=== PATIENT | female | born 1940 | race Caucasian/White ===

== ENCOUNTER → 2016-09-22 | Outpatient (CLI) | payer MEDICARE ==
--- NOTE | 2016-09-22 13:05 | MR ---
EXAMINATION TYPE: MR lumbar spine wo con DATE OF EXAM: 09/22/2016 10:05 AM COMPARISON: NONE HISTORY: Low back pain CONTRAST: 0 mL intravenous MultiHance. TECHNIQUE: Multiplanar, multisequence images of the lumbar spine were acquired. FINDINGS: L5-S1: There is narrowing of the disc height through this level. Facet hypertrophy is present. Some l igamentum flavum laxity is present. No spinal canal stenosis is present. Severe right and moderate le ft foraminal stenosis is present. L4-L5: There is loss of disc height is level. There is anterior listhesis of L4 anterior to L5. This appears to be a grade 1. Disc uncovering is anterior thecal sac flattening. Facet hypertrophy is post erior lateral thecal sac compression. Some spinal canal narrowing through this level is present. Ther e is moderate right and mild left foraminal narrowing. L3-L4: Facet hypertrophy is posterior lateral thecal sac compression. There is disc space narrowing. Mild residual disc bulging is anterior thecal sac contact. No stenosis is present. Neural foramen are patent. L2-L3: There is loss of disc height is level. Left paracentral left lateral disc bulge is present. Th ere is moderate left foraminal stenosis. No spinal canal stenosis is present. L1-L2: Broad-based disc bulge is present. Some central disc extension is present. This has mild anter ior thecal sac compression. No spinal canal stenosis or neural foraminal stenosis. T12-L1: Mild residual disc bulging is anterior thecal sac contact. No cord contact is evident. Facet hypertrophy is posterior lateral thecal sac compression is present. Disc space narrowing is present. IMPRESSION: 1. Grade 1 spondylolisthesis of L4 anterior and L5. Disc uncovering is anterior thecal sac flattening at this level. 2. Multilevel loss of disc height. 3. Disc bulges with mild anterior thecal sac compression and facet hypertrophy at multiple levels is present discussed above. 4. Severe right foraminal stenosis is present L5-S1 due to facet hypertrophy and disc bulge. There is moderate left foraminal stenosis L2-3 due to disc bulge.
== END | disposition home or self-care (01) ==
LOC: RADMRIMAIN 09:20
PROVIDERS: ATTEND Physical Medicine & Rehabilitation
DX: M43.16 Spondylolisthesis, lumbar region (principal); M51.27 Other intervertebral disc displacement, lumbosacral region; M48.06 Spinal stenosis, lumbar region; M51.26 Other intervertebral disc displacement, lumbar region; M41.9 Scoliosis, unspecified; Z79.02 Long term (current) use of antithrombotics/antiplatelets
CPT/HCPCS: 72148

== ENCOUNTER → 2016-09-29 | Outpatient (CLI) | payer MEDICARE ==
[2016-09-29 11:13] LABS: Basophils % (A) 1 %; CH 31.6; CHCM 31.7; Eosinophils # (A) 0.1 k/uL (0-0.7); Eosinophils % (A) 2 %; HCT 48.5 % (34.0-46.0); HDW 2.53; HGB 15.4 gm/dL (11.4-16.0); Luc # (Auto) 0.29; Luc % (Auto) 4; Lymphocytes # (A) 0.8 k/uL (1.0-4.8); Lymphocytes % (A) 11 %; MCH 31.9 pg (25.0-35.0); MCHC 31.8 g/dL (31.0-37.0); MCV 100.3 fL (80.0-100.0); Macrocytosis Slight; Mean Platelet Volume 7.6; Monocytes # (A) 0.4 k/uL (0-1.0); Monocytes % (A) 6 %; Neutrophils % (A) 78 %; RBC 4.83 m/uL (3.80-5.40); RDW 14.6 % (11.5-15.5); WBC 7.8 k/uL (3.8-10.6)
== END | disposition home or self-care (01) ==
LOC: LABWHC1 10:42
PROVIDERS: ATTEND Physical Medicine & Rehabilitation
DX: M70.62 Trochanteric bursitis, left hip (principal); M70.61 Trochanteric bursitis, right hip; M51.17 Intervertebral disc disorders with radiculopathy, lumbosacral region; M43.16 Spondylolisthesis, lumbar region; M47.817 Spondylosis without myelopathy or radiculopathy, lumbosacral region; M41.26 Other idiopathic scoliosis, lumbar region
CPT/HCPCS: 36415; 84165; 85025

== ENCOUNTER 2016-10-28 17:02 | Observation (INO) | payer MEDICARE ==
[2016-10-28] MEDS ORDERED: SODIUM CHLORIDE 0.9% 1,000 ML IV STA (19:48)
[2016-10-28] MEDS ORDERED: KETOROLAC 30 MG/ML 1 ML VIAL IVP STA (19:48)
[2016-10-28] MEDS ORDERED: ONDANSETRON 4 MG/2 ML VIAL IVP STA (19:48)
[2016-10-28] MEDS ORDERED: MORPHINE SULFATE 4 MG/ML SYRINGE IV STA (19:48)
--- NOTE | 2016-10-28 19:54 | ED ---
General Adult HPI - General Chief complaint: Weakness Stated complaint: pain all over Time Seen by Provider: 10/28/16 19:24 Source: patient, RN notes reviewed, old records reviewed Mode of arrival: wheelchair Limitations: no limitations - History of Present Illness Initial comments: This is a 76-year-old female to the ER for evaluation. The patient presents here today for evaluation of weakness not feeling well decreased activity level decrease walking and back pain. Patient history of heart disease, states short of breath and chest pain is not impact her activity level, she states is mainly impacted by her uncontrolled back pain which she is not a surgical candidate for and not an injection candidate for secondary to her heart surgery being on Plavix. Patient states she is becoming increasingly depressed and has been depressed for some quite some time, she does not feel suicidal but is loss her day-to-day goals, she has nothing to look for to, nothing that excites her, she says most her time in bed sleeping. Patient does not cook for herself and her activities of daily living a very minimal she is brought in today by family, her daughter who is concerned for her overall well-being - Related Data Home Medications Medication Instructions Recorded Confirmed Omeprazole [PriLOSEC] 20 mg PO DAILY 02/05/15 10/28/16 Venlafaxine HCl ER [Effexor XR] 150 mg PO DAILY 02/05/15 10/28/16 Carvedilol [Coreg] 3.125 mg PO BID 10/28/16 10/28/16 Gabapentin [Neurontin] 300 - 600 mg PO Q8H 10/28/16 10/28/16 Lisinopril [Zestril] 1.25 mg PO DAILY 10/28/16 10/28/16 diphenhydrAMINE [Benadryl] 25 mg PO HS PRN 10/28/16 10/28/16 Previous Rx's Medication Instructions Recorded Aspirin 325 mg PO DAILY #30 tab 02/08/15 Atorvastatin [Lipitor] 80 mg PO DAILY #30 tab 02/08/15 Clopidogrel [Plavix] 75 mg PO DAILY #30 tab 02/08/15 Nitroglycerin Sl Tabs [Nitrostat] 0.4 mg SUBLINGUAL Q5M PRN #50 tab 02/08/15 Allergies Allergy/AdvReac Type Severity Reaction Status Date / Time No Known Allergies Allergy Verified 10/28/16 19:57 Review of Systems ROS Statement: Those systems with pertinent positive or pertinent negative responses have been documented in the HPI. ROS Other: All systems not noted in ROS Statement are negative. Past Medical History Past Medical History: Coronary Artery Disease (CAD), CVA/TIA, GERD/Reflux, Hyperlipidemia, Hypertension, Myocardial Infarction (AR), Rheumatoid Arthritis ( RA) Additional Past Medical History / Comment(s): CVA 1972 History of Any Multi-Drug Resistant Organisms: None Reported Past Surgical History: Heart Catheterization With Stent, Tubal Ligation Past Anesthesia/Blood Transfusion Reactions: No Reported Reaction Past Psychological History: Depression Smoking Status: Never smoker Past Alcohol Use History: None Reported Past Drug Use History: None Reported - Past Family History Father Family Medical History: Myocardial Infarction (AR) Additional Family Medical History / Comment(s): passed at 60 years old. Mother Family Medical History: Congestive Heart Failure (CHF) Additional Family Medical History / Comment(s): at 99 years old. Brother(s) Family Medical History: Hyperlipidemia, Hypertension, Myocardial Infarction (AR) Additional Family Medical History / Comment(s): still living. General Exam Limitations: no limitations General appearance: alert, in no apparent distress Head exam: Present: atraumatic, normocephalic, normal inspection Eye exam: Present: normal appearance, PERRL, EOMI. Absent: scleral icterus, conjunctival injection, periorbital swelling ENT exam: Present: normal exam, mucous membranes moist Neck exam: Present: normal inspection. Absent: tenderness, meningismus, lymphadenopathy Respiratory exam: Present: normal lung sounds bilaterally. Absent: respiratory distress, wheezes, rales, rhonchi, stridor Cardiovascular Exam: Present: regular rate, normal rhythm, normal heart sounds. Absent: systolic murmur, diastolic murmur, rubs, gallop, clicks GI/Abdominal exam: Present: soft, normal bowel sounds. Absent: distended, tenderness, guarding, rebound, rigid Extremities exam: Present: normal inspection, full ROM, normal capillary refill. Absent: tenderness, pedal edema, joint swelling, calf tenderness Back exam: Present: normal inspection Neurological exam: Present: alert, oriented X3, CN II-XII intact Psychiatric exam: Present: normal affect, normal mood Skin exam: Present: warm, dry, intact, normal color. Absent: rash Course Vital Signs 10/28/16 10/28/16 17:04 19:44 Temperature 98.7 F 97.2 F L Pulse Rate 73 77 Respiratory 18 16 Rate Blood Pressure 147/63 137/66 O2 Sat by Pulse 97 98 Oximetry - Reevaluation(s) Reevaluation #1: 10/28/16 19:54 In speaking with patient in private, she denies suicide but admits to depression , she states that she is would not be in the hospital at this time was of her daughter bring her in but she is not her daughter understands her daughter's concern for will be Medical Decision Making - Medical Decision Making 36 female ER for evaluation of back pain chest pain weakness debility dysuria, positive urinary tract infection with decreased activity level, patient for IV hydration and IV antibiotics evaluation by orthopedics for back and pain control , PTOT and psychiatric evaluation regarding depression - Lab Data Result diagrams: 10/28/16 20:00 10/28/16 20:00 Lab Results 10/28/16 10/28/16 10/28/16 Range/Units 20:00 20:00 20:00 WBC 5.5 (3.8-10.6) k/uL RBC 4.52 (3.80-5.40) m/uL Hgb 14.2 (11.4-16.0) gm/dL Hct 45.2 (34.0-46.0) % MCV 100.0 (80.0-100.0) fL MCH 31.3 (25.0-35.0) pg MCHC 31.3 (31.0-37.0) g/dL RDW 14.3 (11.5-15.5) % Plt Count 209 (150-450) k/uL Neutrophils % 67 % Lymphocytes % 19 % Monocytes % 6 % Eosinophils % 3 % Basophils % 2 % Neutrophils # 3.7 (1.3-7.7) k/uL Lymphocytes # 1.0 (1.0-4.8) k/uL Monocytes # 0.3 (0-1.0) k/uL Eosinophils # 0.2 (0-0.7) k/uL Basophils # 0.1 (0-0.2) k/uL Macrocytosis Slight PT (9.0-12.0) sec INR (<1.1) APTT (22.0-30.0) sec Sodium 141 (137-145) mmol/L Potassium 4.0 (3.5-5.1) mmol/L Chloride 104 (98-107) mmol/L Carbon Dioxide 29 (22-30) mmol/L Anion Gap 8 mmol/L BUN 18 H (7-17) mg/dL Creatinine 0.67 (0.52-1.04) mg/dL Est GFR (MDRD) Af Amer >60 (>60 ml/min/1.73 sqM) Est GFR (MDRD) Non-Af >60 (>60 ml/min/1.73 sqM) Glucose 155 H (74-99) mg/dL Calcium 9.2 (8.4-10.2) mg/dL Phosphorus 3.3 (2.5-4.5) mg/dL Magnesium 2.1 (1.6-2.3) mg/dL Total Bilirubin 0.5 (0.2-1.3) mg/dL AST 29 (14-36) U/L ALT 33 (9-52) U/L Alkaline Phosphatase 87 (38-126) U/L Total Creatine Kinase 81 (30-135) U/L CK-MB (CK-2) 1.2 (0.0-2.4) ng/mL CK-MB (CK-2) Rel Index 1.5 Troponin I <0.012 (0.000-0.034) ng/mL Total Protein 7.0 (6.3-8.2) g/dL Albumin 3.8 (3.5-5.0) g/dL TSH 1.190 (0.465-4.680) mIU/L Urine Color Urine Appearance (Clear) Urine pH (5.0-8.0) Ur Specific [place] (1.001-1.035) Urine Protein (Negative) Urine Glucose (UA) (Negative) Urine Ketones (Negative) Urine Blood (Negative) Urine Nitrite (Negative) Urine Bilirubin (Negative) Urine Urobilinogen (<2.0) mg/dL Ur Leukocyte Esterase (Negative) Urine RBC (0-5) /hpf Urine WBC (0-5) /hpf Ur Squamous Epith Cells (0-4) /hpf Urine Bacteria (None) /hpf Urine Mucus (None) /hpf 10/28/16 10/28/16 Range/Units 20:00 20:00 WBC (3.8-10.6) k/uL RBC (3.80-5.40) m/uL Hgb (11.4-16.0) gm/dL Hct (34.0-46.0) % MCV (80.0-100.0) fL MCH (25.0-35.0) pg MCHC (31.0-37.0) g/dL RDW (11.5-15.5) % Plt Count (150-450) k/uL Neutrophils % % Lymphocytes % % Monocytes % % Eosinophils % % Basophils % % Neutrophils # (1.3-7.7) k/uL Lymphocytes # (1.0-4.8) k/uL Monocytes # (0-1.0) k/uL Eosinophils # (0-0.7) k/uL Basophils # (0-0.2) k/uL Macrocytosis PT 10.9 (9.0-12.0) sec INR 1.1 (<1.1) APTT 21.9 L (22.0-30.0) sec Sodium (137-145) mmol/L Potassium (3.5-5.1) mmol/L Chloride (98-107) mmol/L Carbon Dioxide (22-30) mmol/L Anion Gap mmol/L BUN (7-17) mg/dL Creatinine (0.52-1.04) mg/dL Est GFR (MDRD) Af Amer (>60 ml/min/1.73 sqM) Est GFR (MDRD) Non-Af (>60 ml/min/1.73 sqM) Glucose (74-99) mg/dL Calcium (8.4-10.2) mg/dL Phosphorus (2.5-4.5) mg/dL Magnesium (1.6-2.3) mg/dL Total Bilirubin (0.2-1.3) mg/dL AST (14-36) U/L ALT (9-52) U/L Alkaline Phosphatase (38-126) U/L Total Creatine Kinase (30-135) U/L CK-MB (CK-2) (0.0-2.4) ng/mL CK-MB (CK-2) Rel Index Troponin I (0.000-0.034) ng/mL Total Protein (6.3-8.2) g/dL Albumin (3.5-5.0) g/dL TSH (0.465-4.680) mIU/L Urine Color Yellow Urine Appearance Clear (Clear) Urine pH 6.0 (5.0-8.0) Ur Specific [place] 1.011 (1.001-1.035) Urine Protein Negative (Negative) Urine Glucose (UA) Negative (Negative) Urine Ketones Negative (Negative) Urine Blood Trace H (Negative) Urine Nitrite Negative (Negative) Urine Bilirubin Negative (Negative) Urine Urobilinogen <2.0 (<2.0) mg/dL Ur Leukocyte Esterase Moderate H (Negative) Urine RBC 6 H (0-5) /hpf Urine WBC 12 H (0-5) /hpf Ur Squamous Epith Cells 3 (0-4) /hpf Urine Bacteria Occasional H (None) /hpf Urine Mucus Rare H (None) /hpf - Radiology Data Radiology results: report reviewed, image reviewed Disposition Clinical Impression: UTI (urinary tract infection), Weakness, Dehydration, Debility, Back pain, Depression Disposition: ADMITTED IP TO THIS [facility] Condition: Fair Referrals: Indira Rodriguez MD [Primary Care Provider] - 1-2 days
[2016-10-28 20:21] LABS: Basophils # (A) 0.1 k/uL (0-0.2); Basophils % (A) 2 %; CH 31.3; CHCM 31.5; Eosinophils # (A) 0.2 k/uL (0-0.7); Eosinophils % (A) 3 %; HCT 45.2 % (34.0-46.0); HDW 2.47; HGB 14.2 gm/dL (11.4-16.0); Luc # (Auto) 0.14; Luc % (Auto) 3; Lymphocytes % (A) 19 %; MCH 31.3 pg (25.0-35.0); MCHC 31.3 g/dL (31.0-37.0); Macrocytosis Slight; Mean Platelet Volume 6.8; Monocytes # (A) 0.3 k/uL (0-1.0); Monocytes % (A) 6 %; Neutrophils # (A) 3.7 k/uL (1.3-7.7); Neutrophils % (A) 67 %; RBC 4.52 m/uL (3.80-5.40); RDW 14.3 % (11.5-15.5); WBC 5.5 k/uL (3.8-10.6); WBC (Perox) 5.26
[2016-10-28 20:30] LABS: ALT 33 U/L (9-52); AST 29 U/L (14-36); Alkaline Phosphatase 87 U/L (38-126); Anion Gap 8 mmol/L; Blood Urea Nitrogen 18 mg/dL (7-17); Calcium 9.2 mg/dL (8.4-10.2); Carbon Dioxide 29 mmol/L (22-30); Chloride 104 mmol/L (98-107); Glucose 155 mg/dL (74-99); Magnesium 2.1 mg/dL (1.6-2.3); Non-African American GFR(MDRD) >60 (>60 ml/min/1.73 sqM); Phosphorous 3.3 mg/dL (2.5-4.5); Sodium 141 mmol/L (137-145); Total Bilirubin 0.5 mg/dL (0.2-1.3)
[2016-10-28 20:38] LABS: Appearance,Urine Clear (Clear); Bacteria,Urine Occasional /hpf; Bilirubin,Urine Negative (Negative); Glucose,Urine (UA) Negative (Negative); Ketones,Urine Negative (Negative); Leukocyte Esterase,Urine Moderate (Negative); Mucus,Urine Rare /hpf; Nitrite,Urine Negative (Negative); Particle Count 1521; Protein,Urine Negative (Negative); RBC,Urine 6 /hpf (0-5); Specific Gravity,Urine 1.011 (1.001-1.035); Squamous Epithelial Cell,Urine 3 /hpf (0-4); UA Billing (MACRO vs. MICRO) MICRO; Urobilinogen,Urine <2.0 mg/dL (<2.0); WBC,Urine 12 /hpf (0-5)
[2016-10-28 20:50] LABS: Creatine Kinase 81 U/L (30-135)
--- NOTE | 2016-10-28 20:52 | XR ---
EXAMINATION TYPE: XR chest 2V DATE OF EXAM: 10/28/2016 8:38 PM COMPARISON: 02/05/2015 HISTORY: Weakness TECHNIQUE: Frontal and lateral views of the chest are obtained. FINDINGS: There is no heart failure nor confluent pneumonic infiltrate. Heart size is normal. There no hilar masses. There are chest leads. IMPRESSION: Normal chest. No change.
[2016-10-28 20:53] LABS: INR 1.1 (<1.1); Prothrombin Time 10.9 sec (9.0-12.0)
[2016-10-28 21:03] LABS: Creatine Kinase MB 1.2 ng/mL (0.0-2.4); Troponin I <0.012 ng/mL (0.000-0.034)
[2016-10-28 21:07] LABS: Partial Thromboplastin Time 21.9 sec (22.0-30.0)
[2016-10-28] MEDS ORDERED: ACETAMINOPHEN TAB 325 MG TAB PO STA (21:59)
[2016-10-28] MEDS ORDERED: IBUPROFEN 800 MG TAB PO PRN (21:59)
[2016-10-28] MEDS ORDERED: ACETAMINOPHEN TAB 325 MG TAB PO PRN (21:59)
[2016-10-28 23:27] VITALS: BMI 37.8
[2016-10-29] MEDS: MORPHINE SULFATE 4 MG/ML SYRINGE IVP PRN ×2 (05:27→22:20)
[2016-10-29] MEDS: ENOXAPARIN 40 MG/0.4 ML SYRINGE SQ SCH (08:22)
[2016-10-29] MEDS ORDERED: NITROGLYCERIN SL TABS 0.4 MG TAB SUBLINGUAL PRN (10:35)
[2016-10-29] MEDS ORDERED: ALPRAZolam 0.25 MG TAB PO PRN (10:36)
[2016-10-29] MEDS: ASPIRIN 325 MG TAB PO SCH (11:42)
[2016-10-29] MEDS: ATORVASTATIN 80 MG TAB PO SCH (11:42)
[2016-10-29] MEDS: CLOPIDOGREL 75 MG TAB PO SCH (11:43)
[2016-10-29] MEDS: CARVEDILOL 3.125 MG TAB PO SCH ×2 (11:43→17:37)
[2016-10-29] MEDS: GABAPENTIN 300 MG CAP PO SCH ×3 (11:43→23:40)
[2016-10-29] MEDS: VENLAFAXINE HCL ER 150 MG CAP PO SCH (11:44)
[2016-10-29] MEDS: LISINOPRIL 2.5 MG TAB PO SCH (11:44)
--- NOTE | 2016-10-29 12:05 | P.CNOR ---
History of Present Illness - [facility] Consult date: 10/29/16 Consult reason: low back pain History of present illness: This is a 76-year-old female who is a known patient of Dr. Díaz for her low back pain. She is admitted with recent urinary tract infection. She states that her back pain has become significantly worse over the past several days. She is also having pain radiating down both legs. She denies numbness or tingling. Other than the urinary tract infection symptoms she has no other bowel or bladder difficulties. She has been attending physical therapy for her back. The patient is able to ambulate short distances. Past Medical History Past Medical History: Coronary Artery Disease (CAD), CVA/TIA, GERD/Reflux, Hyperlipidemia, Hypertension, Myocardial Infarction (ND), Rheumatoid Arthritis ( RA) Additional Past Medical History / Comment(s): CVA 2011 Last Myocardial Infarction Date:: 01/2015 History of Any Multi-Drug Resistant Organisms: None Reported Past Surgical History: Heart Catheterization With Stent, Tubal Ligation Past Anesthesia/Blood Transfusion Reactions: No Reported Reaction Date of Last Stent Placement:: 01/2015 Past Psychological History: Depression Smoking Status: Never smoker Past Alcohol Use History: None Reported Past Drug Use History: None Reported - Past Family History Father Family Medical History: Myocardial Infarction (ND) Additional Family Medical History / Comment(s): passed at 60 years old. Mother Family Medical History: Congestive Heart Failure (CHF) Additional Family Medical History / Comment(s): at 99 years old. Brother(s) Family Medical History: Hyperlipidemia, Hypertension, Myocardial Infarction (ND) Additional Family Medical History / Comment(s): still living. Medications and Allergies Home Medications Medication Instructions Recorded Confirmed Type Omeprazole [PriLOSEC] 20 mg PO DAILY 02/05/15 10/28/16 History Venlafaxine HCl ER [Effexor XR] 150 mg PO DAILY 02/05/15 10/28/16 History Carvedilol [Coreg] 3.125 mg PO BID 10/28/16 10/28/16 History Gabapentin [Neurontin] 300 - 600 mg PO Q8H 10/28/16 10/28/16 History Lisinopril [Zestril] 1.25 mg PO DAILY 10/28/16 10/28/16 History diphenhydrAMINE [Benadryl] 25 mg PO HS PRN 10/28/16 10/28/16 History Allergies Allergy/AdvReac Type Severity Reaction Status Date / Time No Known Allergies Allergy Verified 10/28/16 19:57 Physical Examination This is a pleasant 76-year-old female in no acute distress. She is alert and oriented 3. Exam of the low back reveals mild, nonspecific tenderness about the lower lumbar region. There is no hip pain with logroll. Patient can raise each leg off the bed independently without difficulty. She does have some weakness to the left lower extremity with sustained leg raise. She has full foot and ankle motion bilaterally. Neurovascular status to the lower extremities is intact. Results - Labs Result Diagrams: 10/28/16 20:00 10/28/16 20:00 Assessment and Plan (1) Lumbar radiculopathy Status: Acute (2) Back pain Status: Acute (3) UTI (urinary tract infection) Status: Acute Plan: The clinical findings are discussed the patient. She has not yet tried steroids for her low back symptoms. I will give her 3 doses of site Medrol then prescribe a tapered dosing for home. She is to follow-up with Dr. Díaz in 2 weeks for reevaluation. She may continue her physical therapy as previously directed.
[2016-10-29] MEDS: methylPREDNISolone SOD SUCCI 125 MG/2 ML VIAL IV SCH ×3 (13:03→23:40)
--- NOTE | 2016-10-29 20:15 | HP ---
DATE OF ADMISSION: 10/28/2016 CHIEF COMPLAINT: Weakness and pain all over and vomiting. HISTORY OF PRESENT ILLNESS: This 76 -year-old woman with past medical history of multiple medical problems including coronary artery disease, CVA, TIA, history of GERD, history of hypertension, myocardial infarction, being followed by Dr. Indira Rodriguez in the outpatient setting, was complaining of vomiting and abdominal discomfort, diffuse aches and pains. The patient also had an episode of vomiting. The patient that the patient had PR in 2014 after an episode of vomiting and the daughter took the patient to [facility] and the patient was admitted to the hospital for further evaluation and treatment. The patient also had significant back pain. The patient not a surgical candidate. There is no history of any fever, rigors or chills. No history of headache, loss of consciousness or seizures. The patient was found to have evidence of UTI . PAST MEDICAL HISTORY: History of coronary artery disease, stents, history of GERD, hypertension, hyperlipidemia, history of myocardial infarction, cerebrovascular accident. Medications prior to admission include: 2. Effexor-XR 150 mg p.o. daily. 3. Prilosec 20 mg daily. 4. Nitrostat 0.5 sublingual p.r.n. 5. Zestril 1.25 mg p.o. daily. 6. Neurontin 300 to 600 mg p.o. q.h.s. 7. Plavix 75 mg daily. 8. Coreg 3.125 mg p.o. b.i.d. 9. Lipitor 80 mg p.o. daily. 10. Aspirin 325 mg daily. ALLERGIES: None. FAMILY HISTORY: History of myocardial infarction in the family. SOCIAL HISTORY: No smoking. Occasional alcohol intake. REVIEW OF SYSTEMS: ENT: Diminishing hearing, diminished vision. CARDIOVASCULAR: As mentioned earlier. RESPIRATORY: As mentioned earlier. GI: As mentioned earlier. : No dysuria. No retention. Nervous system: No numbness. Generalized weakness. ALLERGY/IMMUNOLOGY: No asthma or hayfever. MUSCULOSKELETAL: As mentioned earlier. HEMATOLOGY/ONCOLOGY: No history of anemia. ENDOCRINE: No history of diabetes mellitus or hypothyroidism. CONSTITUTIONAL: As mentioned earlier. DERMATOLOGY: Negative. RHEUMATOLOGY: Negative. PSYCHIATRY: As mentioned earlier. PHYSICAL EXAMINATION: The patient is alert and oriented times three. Pulse 77, blood pressure 137/40, respirations 18, and temperature 97.9, pulse ox 98% on room air. HEENT: Conjunctivae normal. Oral mucosa moist. NECK: No jugular venous distention. No carotid bruit. No lymph node enlargement. CARDIOVASCULAR: S1, S2 muffled. No S3, no S4. RESPIRATORY: Breath sounds diminished at the bases. A few scattered rhonchi, no crackles. ABDOMEN: Soft, nontender. No mass palpable. Legs: No edema, no swelling. Nervous system: Higher functions as mentioned earlier. Moves all 4 limbs. Mild diffuse weakness. No focal deficits. LYMPHATICS: No lymph nodes palpable in the neck, axillae or groin. SKIN: No ulcer, rash or bleeding. LABS: CBC within normal limits and APTT 21.9 and glucose is 155. UA noted. ASSESSMENT: 1. Vomiting and weakness for evaluation, possibly acute gastritis. 2. Urinary tract infection. 3. Increased random blood sugar. 4. History of coronary artery disease. 5. History of cerebrovascular accident, transient ischemic attack. 6. Gastroesophageal reflux disease. 7. Hypertension. 8. Hyperlipidemia. 9. Myocardial infarction. 10. History of rheumatoid arthritis. 11. History of coronary artery disease, stent. 12. History of depression, not otherwise specified. 13. Obesity with body mass index of 37.9. 14. Back pain and lumbar radiculopathy, degenerative joint disease 15. FULL CODE. RECOMMENDATIONS AND DISCUSSION: In this 77-year-old woman who presented with multiple complex medical issues, we will monitor the patient closely. Continue the current medications, continue symptomatic treatment. Otherwise, at this time, I would recommend empiric antibiotics. The patient started on Rocephin. Obtain cultures. Increase ambulation. Otherwise, continue to monitor. Psych consult has been requested. Orthopedics also seen the patient for follow-up of the back pain. Otherwise, continue to monitor. Guarded prognosis. MTDD
[2016-10-29] MEDS ORDERED: diphenhydrAMINE 25 MG CAP PO PRN (21:00)
[2016-10-30] MEDS ORDERED: PANTOPRAZOLE 40 MG TABLET PO SCH (07:30)
[2016-10-30] MEDS: ASPIRIN 325 MG TAB PO SCH (07:52)
[2016-10-30] MEDS: ATORVASTATIN 80 MG TAB PO SCH (07:52)
[2016-10-30] MEDS: CARVEDILOL 3.125 MG TAB PO SCH (07:52)
[2016-10-30] MEDS: GABAPENTIN 300 MG CAP PO SCH (07:52)
[2016-10-30] MEDS: LISINOPRIL 2.5 MG TAB PO SCH (07:52)
[2016-10-30] MEDS: CLOPIDOGREL 75 MG TAB PO SCH (07:52)
[2016-10-30] MEDS: ENOXAPARIN 40 MG/0.4 ML SYRINGE SQ SCH (07:52)
[2016-10-30] MEDS: VENLAFAXINE HCL ER 150 MG CAP PO SCH (07:53)
[2016-10-30 07:59] VITALS: BP 161/80; PULSE 83; RESP 18; TEMP 97.9
[2016-10-30 08:07] LABS: Anion Gap 8 mmol/L; Blood Urea Nitrogen 19 mg/dL (7-17); Calcium 9.9 mg/dL (8.4-10.2); Carbon Dioxide 27 mmol/L (22-30); Chloride 107 mmol/L (98-107); Glucose 124 mg/dL (74-99); Non-African American GFR(MDRD) >60 (>60 ml/min/1.73 sqM); Potassium 4.6 mmol/L (3.5-5.1); Sodium 142 mmol/L (137-145)
[2016-10-30 08:15] LABS: Basophils % (A) 0 %; CH 31.7; CHCM 32.5; Eosinophils % (A) 0 %; HCT 43.8 % (34.0-46.0); HDW 2.48; Luc # (Auto) 0.11; Luc % (Auto) 1; Lymphocytes # (A) 0.6 k/uL (1.0-4.8); Lymphocytes % (A) 7 %; MCH 31.4 pg (25.0-35.0); MCV 98.2 fL (80.0-100.0); Mean Platelet Volume 7.2; Monocytes # (A) 0.6 k/uL (0-1.0); Monocytes % (A) 6 %; Neutrophils # (A) 8.3 k/uL (1.3-7.7); Neutrophils % (A) 86 %; RBC 4.46 m/uL (3.80-5.40); RDW 13.8 % (11.5-15.5); WBC 9.7 k/uL (3.8-10.6); WBC (Perox) 9.99
[2016-10-30] MEDS ORDERED: NON-FORMULARY DRUG (Omeprazole [Prilosec] 20 MG) PO SCH (09:00)
--- NOTE | 2016-10-30 10:43 | P.PN ---
Subjective Principal diagnosis: UTI Lumbar radiculopathy This is a 76-year-old female who we are following regarding her acute on chronic low back pain. She states that her pain is improved today. She is hoping for discharge to home today. Objective - Vital Signs Vital signs: Vital Signs Temp 97.9 F 10/30/16 07:00 Pulse 83 10/30/16 07:00 Resp 18 10/30/16 07:00 BP 161/80 10/30/16 07:00 Pulse Ox 96 10/30/16 07:00 Intake & Output 10/29/16 10/30/16 10/30/16 18:59 06:59 18:59 Intake Total 300 1830 Balance 300 1830 Intake: Oral 300 1830 Other: Voiding Method Toilet Toilet Toilet # Voids 2 2 - Exam This is a pleasant 76-year-old female in no acute distress. She is alert and oriented 3. Exam of the low back reveals no obvious deformity. There is no pain palpation about the lumbar region. She has full motion to bilateral lower extremities. She has 5/5 strength to the lower extremities. Neurovascular status to the lower extremities is intact. - Labs CBC & Chem 7: 10/30/16 07:06 10/30/16 07:06 Labs: Abnormal Lab Results - Last 24 Hours (Table) 10/30/16 10/30/16 Range/Units 07:06 07:06 Neutrophils # 8.3 H (1.3-7.7) k/uL Lymphocytes # 0.6 L (1.0-4.8) k/uL BUN 19 H (7-17) mg/dL Glucose 124 H (74-99) mg/dL Assessment and Plan (1) Lumbar radiculopathy Status: Acute (2) Back pain Status: Acute (3) UTI (urinary tract infection) Status: Acute Plan: The clinical findings are discussed the patient. She may be discharged to home from an orthopedic standpoint. She is followed Dr. Díaz in [address] her on prednisone taper dose seen for home. She is to continue her Prilosec.
--- NOTE | 2016-10-30 18:00 | CONS ---
DATE OF CONSULTATION: 10/30/2016 PURPOSE FOR CONSULTATION: Evaluate for Depression HISTORY OF PRESENTING ILLNESS: The patient is a 76-year-old female. She lives alone. She presented to the emergency room for evaluation of weakness, decreased activity level, especially not walking due to back pain. She has a history of coronary artery disease, CVA, hypertension, hyperlipidemia, rheumatoid arthritis and back pain and lumbar radiculopathy, and depression. When she came in to the emergency room, she said that she was becoming increasingly depressed and has been depressed for quite some time. She reported she did not feel suicidal but has lost day to day goals. She has nothing to look forward to, has loss of motivation and interest and that she has been spending much of her days in bed. She said that she was not cooking for herself or doing any activities of daily living. When I interviewed the patient initially she said that things were fine for her at home. She was not identifying any significant problems with depression. When I talked to her daughter, her daughter reported that she has had long-term problems with depression. The daughter described a very unfortunate home situation in that her had very high risk behavior, that had impact on his work as a primary school principal that ultimately led to legal repercussions, apparently through many years of their a relationship, the patient either had significant guilt or major emotional withdrawal from her 's behavioral disorder. All of this took a significant toll on the family including 2 children whom I have also had long-term mental health issues, which likely contributed to their father's behavioral disorder. The daughter says that she has seen increasing problems with depression over the years. She recalls that the patient had been treated with Zoloft for a number of years, though did not see any benefit in regards to depression. More recently the patient has been on Effexor and apparently has taken that for an extended period of time with apparently little or no benefit. Currently, the patient is on Effexor 150 mg a day. The daughter expressed concern that the patient may not be taking the medication consistently. It is noted that her last refill of her Effexor was August 05 for 90 day supply. The daughter was not sure whether or not she had been taking the medication, but was planning to look for her medicines to see if to see whether or not the supply would be depleted as she would be due for more medicine at this time. Both the patient and daughter confirm that the patient has been spending most of her time in bed sometimes up to 20 hours a day. The patient described that in the last few weeks, she has had it at increasing problems with confusion. She notes that she drives a car, though has not been getting out of the house in the last 2 weeks. She said that she was not doing well with shopping, which included not being able to get groceries in the last few weeks. She does say that she has a lot of pain in her back and down both her legs. She says confusion she has had in the last 2 weeks related to having a lot of pain and just being withdrawn. She says that she just does not want to get out of bed. Her daughter notes that over the years she has become increasingly socially isolated. She lives alone and essentially has no outside contacts which has not been in her lifestyle in the past. 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 She did that work for about 4 years. She was described always being insightful, intelligent and active, though has lost much of that. The daughter said that recently she was barely doing any self-care. There was no food in the house. The house was in disheveled state. The patient has been hoarding things. When I talked to the patient after having talked with her daughter, the patient was more upfront about some of her struggle. She was able to acknowledge depression. We did not go into details of past family issues. We did talk about her social isolation and lack of activity, which the patient readily acknowledged. We discussed the importance of looking at treatment such as being on an antidepressant as well as other interventions to help improve mood and function. The patient expressed at least some willingness to consider making changes in her lifestyle to move beyond her current struggles. MENTAL STATUS: Patient was lying in bed. Initially she smiled was quite upbeat. When I talked to her a little later, she he had a more serious manner. It was noted that when I asked questions about recent events, she seemed to have trouble organizing her thoughts. Later on she provided a little clearer information. She acknowledged being confused. Her affect was a little more limited. When I met with her the second time, her mood was dysphoric. She did have a somewhat worried manner. On cognitive exam, she could tell me it was Monday. She gave me the date, she knew the President and Watch Assembly Instructor's names. She could give me some details about events earlier in the day. She was able to give me her daughter's telephone number by heart. ASSESSMENT: This 76-year-old female is diagnosed with major depression. It may be the case that she had some degree of delirium over the last few weeks relating to her urinary tract infection. It is noted that she has likely had long-term emotional struggles and trauma within her marriage and having to experience very unfortunate circumstances as a result. It would not be surprising that the patient may have experienced significant trauma in her home growing up as well. I had an extensive discussion both with the daughter as well as with the patient in regards to appropriate treatment options. In regards to treatment of depression and possible posttraumatic stress disorder, it would be reasonable to continue Effexor if in fact she has been taking it on a consistent basis up to currently, if she was on 150 mg a day, I would like to go up to 225 mg a day for 2 weeks, and if no clear change at that point, I will go up to 300 mg for 2 weeks. In addition, I would consider adding Zyprexa 5 mg twice a day and possibly titrating up to 5 mg 3 times a day or 10 mg twice a day. The aim of Zyprexa would be to help augment her antidepressant. In addition, given the seriousness of her social and emotional withdrawal, Zyprexa would likely help with reducing physiologic stress response that may be part of severe depression and possibly posttraumatic stress disorder. I do believe there is a significant likelihood that she does have underlying PTSD. At this point whether or not she would be amenable to working with a therapist to further evaluate for these issues and discussed some of the struggles she has had in her life remains to be seen. Her social withdrawal is a very serious matter. I would encourage her perhaps with family support to at least begin to find some social activities out in the community, whether it might be [employer] volunteer activity or other activities. It would be particularly helpful to find outlets where the patient might be able to renew passions and strong interest that she has had earlier in her life, which may have been sordid by some of the struggles that she has dealt with. I would anticipate that if she could re-establish social connections that it might be a good avenue towards also addressing some of her psychological and emotional issues. I discussed, both with the patient daughter, my recommendation for a walking program. We had talked about an idea of a plan of 10 minute walks outdoors every hour. In this regard, I encourage people to use good posture, very important to relax shoulders and swing arms and get good movement in the upper part of the body. This kind of walking program can help improve body mechanics which may help lessen some of the back problems she has. We discussed that if 10 minutes was too much, she could limit it with frequent short walks can be very important from the standpoint of recovering function. In addition, the frequent walks helps reduce physiologic stress response to reduce anxiety and improve overall energy. I discussed with the patient and daughter that it would be very important to work a plan to be sure she is taking medications appropriately on a daily basis. I noted that if she does not show good response to Effexor, or if medication compliance becomes an issue, there might be consideration for switching to Prozac which can be taken less on a daily basis. The standard with Prozac would be to take 20 mg a day for 3 to 4 weeks, if no response titrate up on 2 week intervals up total of 60 mg a day. Due to the fact that Prozac has a 2 week half-life, patients can be effectively treated by taking a weeks, worth of Prozac divided up into 2 or 3 doses per week. In fact that Prozac does have a form labeled Prozac and then capital weekly which is essentially a 90 mg fluoxetine tablet taken once a week. Though that dosage only provides approximately 12.5 mg per day. As noted above, Prozac can be taken similarly, without significant side effects. Due to the fact that the patient will be discharged today, the patient and the daughter understands to get a copy of this consult note and review the issues with the primary care physician. TOMMY
--- NOTE | 2016-10-31 13:56 | DS ---
DATE OF ADMISSION: 10/28/2016 DATE OF DISCHARGE: 10/30/2016 DATE OF SERVICE: 10/30/2016 FINAL DIAGNOSES: 1. Vomiting and weakness for evaluation, possibly acute gastritis, improved. 2. Urinary tract infection. 3. Increased random blood sugar. 4. History of coronary artery disease. 5. History of cerebrovascular accident, transient ischemic attack. 6. Gastroesophageal reflux disease. 7. Essential hypertension. 8. Hyperlipidemia. 9. History of myocardial infarction. 10. History of rheumatoid arthritis. 11. History of coronary artery disease, stent. 12. History of depression, not otherwise specified. 13. Obesity, body mass index of 37.9. 14. History of back pain, lumbar radiculopathy, degenerative joint disease. 15. FULL CODE. DISCHARGE DISPOSITION: Patient will be discharged in a stable condition with guarded prognosis. HISTORY OF PRESENT ILLNESS: The 76-year-old woman with a past medical history of multiple medical problems as mentioned earlier being followed by Dr. Indira Rodriguez in the outpatient setting, admitted with multiple symptomatology as mentioned earlier. The patient also seen by orthopedic team from Dr. Díaz also and recommended outpatient follow up and a short course of steroids also. The patient also has history of fall, but apparently patient tangled up on some carpet, etc. according to the patient. Otherwise, the patient was treated with antibiotics. The patient had symptomatic treatment. Patient improved significantly. Patient was able to ambulate with a walker. On exam, vitals are stable. CARDIOVASCULAR SYSTEM: S1, S2, muffled. ABDOMEN: Soft. NERVOUS SYSTEM: No focal deficits. The lab-nation, CBC within normal limits and glucose 124. Other labs are noted and the cultures are negative so far. So the patient will be discharged in a stable condition with guarded prognosis with the following advice: 1. Diet is cardiac. 2. Activity limited until followup. 3. Follow up with Dr. Indira Rodriguez in about 1 to 2 days. 4. Follow up with Dr. Díaz. Discharge medications: 1. Aspirin 325 mg p.o. daily. 2. Lipitor 80 mg p.o. daily. 3. Coreg 3.125 mg p.o. b.i.d. 4. Ceftin 500 mg p.o. b.i.d. for 2 more days. 5. Plavix 75 mg p.o. daily. 6. Neurontin 300 mg to 600 mg as before. 7. Zestril 1.25 mg daily. 8. Multivitamin 1 p.o. daily. 9. Nitrostat 0.4 sublingual p.r.n. 10. Prilosec 20 mg p.o. daily. 11. Effexor-XR 150 mg p.o. daily. 12. Benadryl 25 mg q.h.s. p.r.n. 13. Prednisone per orthopedic surgery that will be 60 mg daily for 4 days, 40 for 4 days and 20 for 4 ays. Follow up labs with Dr. Indira Rodriguez.
== END 2016-10-30 13:39 | disposition home or self-care (01) ==
LOC: EC 17:02 → 5MS5E 21:57
PROVIDERS: ADMIT Hospitalist; ATTEND Hospitalist
DX: N39.0 Urinary tract infection, site not specified (principal); R11.10 Vomiting, unspecified; R53.1 Weakness; E66.9 Obesity, unspecified; Z68.37 Body mass index [BMI] 37.0-37.9, adult; E78.5 Hyperlipidemia, unspecified; E86.0 Dehydration; F32.9 Major depressive disorder, single episode, unspecified; I10 Essential (primary) hypertension; I25.10 Atherosclerotic heart disease of native coronary artery without angina pectoris; I25.2 Old myocardial infarction; K21.9 Gastro-esophageal reflux disease without esophagitis; M06.9 Rheumatoid arthritis, unspecified; M54.16 Radiculopathy, lumbar region; Z79.02 Long term (current) use of antithrombotics/antiplatelets; Z79.82 Long term (current) use of aspirin; Z79.899 Other long term (current) drug therapy; Z86.73 Personal history of transient ischemic attack (TIA), and cerebral infarction without residual deficits; Z95.5 Presence of coronary angioplasty implant and graft; R41.0 Disorientation, unspecified; G89.29 Other chronic pain
CPT/HCPCS: 96375 ×4; 96361 ×2; 96374 ×2; 99285 ×2; 36415; 93005; 97161; 80053; 80048; 82550; 82553; 83735; 84100; 84443; 84484; 85025 ×2; 85610; 85730; 81001; 87086; 71020; G0378 ×3; J2270 ×2; J2930; J2405; J1650 ×2; J0696 ×2; J1885; 96365; 96366; 96372; 96376

== ENCOUNTER 2017-10-15 18:09 | Emergency (ER) | payer MEDICARE ==
[2017-10-15 18:16] VITALS: RESP 18
[2017-10-15] MEDS ORDERED: SODIUM CHLORIDE 0.9% 500 ML IV STA (19:37)
[2017-10-15] MEDS ORDERED: HYDROcodone/APAP 5-325MG 1 EACH TAB PO STA (19:38)
--- NOTE | 2017-10-15 19:43 | ED ---
General Adult HPI - General Source: patient, RN notes reviewed Mode of arrival: ambulatory Limitations: no limitations <Cornel Nicole - Last Filed: 10/15/17 19:59> <Chava Knox - Last Filed: 10/15/17 22:28> - General Chief complaint: Back Pain/Injury Stated complaint: mid back pain Time Seen by Provider: 10/15/17 19:26 - History of Present Illness Initial comments: Patient's a 77-year-old female presents to emergency room today with a chief complaint of increased back pain. She states symptoms started this past Monday. She states she went to the urgent care was diagnosed with urinary tract infection placed on antibiotics for 5 days. She states she's not had any improvement. She states symptoms seem to be worse with movements of turning twisting and bending. Denies any injury or trauma to the area. States she's never had similar symptoms in the past. Denies any radiation of the pain. States that she tried some Excedrin earlier today with no relief. Patient denies any other complaints or symptoms. Patient denies any recent fever, chills , shortness of breath, chest pain, abdominal pain, nausea or vomiting, numbness or tingling, headaches or visual changes, or any other complaints. (Cornel Nicole) - Related Data Home Medications Medication Instructions Recorded Confirmed Omeprazole [PriLOSEC] 20 mg PO DAILY 02/05/15 10/28/16 Venlafaxine HCl ER [Effexor XR] 150 mg PO DAILY 02/05/15 10/28/16 Carvedilol [Coreg] 3.125 mg PO BID 10/28/16 10/28/16 Gabapentin [Neurontin] 300 - 600 mg PO Q8H 10/28/16 10/28/16 Lisinopril [Zestril] 1.25 mg PO DAILY 10/28/16 10/28/16 diphenhydrAMINE [Benadryl] 25 mg PO HS PRN 10/28/16 10/28/16 Previous Rx's Medication Instructions Recorded Aspirin 325 mg PO DAILY #30 tab 02/08/15 Atorvastatin [Lipitor] 80 mg PO DAILY #30 tab 02/08/15 Clopidogrel [Plavix] 75 mg PO DAILY #30 tab 02/08/15 Nitroglycerin Sl Tabs [Nitrostat] 0.4 mg SUBLINGUAL Q5M PRN #50 tab 02/08/15 Cefuroxime Axetil [Ceftin] 500 mg PO BID #4 tab 10/30/16 Multivitamins, Thera [Multivitamin 1 tab PO DAILY #30 tablet 10/30/16 (formulary)] predniSONE 20 mg PO DIRECTED #24 tab 10/30/16 Hydrocodone/Acetaminophen [Dannemora 1 each PO Q6HR PRN #10 tab 10/15/17 5-325] Metoclopramide HCl [Reglan] 5 mg PO TID #9 tablet 10/15/17 Tamsulosin [Flomax] 0.4 mg PO DAILY #14 cap 10/15/17 Allergies Allergy/AdvReac Type Severity Reaction Status Date / Time No Known Allergies Allergy Verified 10/15/17 18:16 Review of Systems ROS Other: All systems not noted in ROS Statement are negative. <Cornel Nicole - Last Filed: 10/15/17 19:59> ROS Other: All systems not noted in ROS Statement are negative. <Chava Knox - Last Filed: 10/15/17 22:28> ROS Statement: Those systems with pertinent positive or pertinent negative responses have been documented in the HPI. Past Medical History Past Medical History: Coronary Artery Disease (CAD), CVA/TIA, GERD/Reflux, Hyperlipidemia, Hypertension, Myocardial Infarction (PA), Rheumatoid Arthritis ( RA) Additional Past Medical History / Comment(s): CVA 2011 Last Myocardial Infarction Date:: 01/2015 History of Any Multi-Drug Resistant Organisms: None Reported Past Surgical History: Heart Catheterization With Stent, Tubal Ligation Past Anesthesia/Blood Transfusion Reactions: No Reported Reaction Date of Last Stent Placement:: 01/2015 Past Psychological History: Depression Smoking Status: Never smoker Past Alcohol Use History: Rare Past Drug Use History: None Reported - Past Family History Father Family Medical History: Myocardial Infarction (PA) Additional Family Medical History / Comment(s): passed at 60 years old. Mother Family Medical History: Congestive Heart Failure (CHF) Additional Family Medical History / Comment(s): at 99 years old. Brother(s) Family Medical History: Hyperlipidemia, Hypertension, Myocardial Infarction (PA) Additional Family Medical History / Comment(s): still living. <Cornel Nicole - Last Filed: 10/15/17 19:59> General Exam Limitations: no limitations <Cornel Nicole - Last Filed: 10/15/17 19:59> <Chava Knox - Last Filed: 10/15/17 22:28> - General Exam Comments Initial Comments: General: The patient is awake and alert, in no distress, and does not appear acutely ill. Eye: Pupils are equal, round and reactive to light, extra-ocular movements are intact. No nystagmus. There is normal conjunctiva bilaterally. No signs of icterus. Ears, nose, mouth and throat: There are moist mucous membranes and no oral lesions. Neck: The neck is supple, there is no tenderness or JVD. Cardiovascular: There is a regular rate and rhythm. No murmur, rub or gallop is appreciated. Respiratory: Lungs are clear to auscultation, respirations are non-labored, breath sounds are equal. No wheezes, stridor, rales, or rhonchi. Gastrointestinal: Soft, non-distended, non-tender abdomen without masses or organomegaly noted. There is no rebound or guarding present. No CVA tenderness. Musculoskeletal: Patient shows limited range of motion due to pain. Patient does have increased pain with any returning twisting and bending of the back. No specific bony tenderness. No step-off deformity appreciated in thoracic or lumbar spine. Mild tenderness paravertebrally mid back to the right. Strength 5/5. Sensation intact. Pulses equal bilaterally 2+. Neurological: A&O x 3. CN II-XII intact, There are no obvious motor or sensory deficits. Coordination appears grossly intact. Speech is normal. Skin: Skin is warm and dry and no rashes or lesions are noted. Psychiatric: Cooperative, appropriate mood & affect, normal judgment. (Cornel Nicole) Course <Cornel Nicole - Last Filed: 10/15/17 19:59> <Chava Knox - Last Filed: 10/15/17 22:28> Vital Signs 10/15/17 10/15/17 18:12 22:12 Temperature 97.6 F 98.3 F Pulse Rate 109 H 79 Respiratory 18 18 Rate Blood Pressure 138/65 133/61 O2 Sat by Pulse 99 96 Oximetry - Reevaluation(s) Reevaluation #1: 10/15/17 19:59 Patient's labs and imaging currently pending at this time. Case discussed and signed out to attending physician Dr Knox. (Cornel Nicole) Medical Decision Making <Cornel Nicole - Last Filed: 10/15/17 19:59> - Lab Data Result diagrams: 10/15/17 20:20 10/15/17 20:20 <Chava Knox - Last Filed: 10/15/17 22:28> - Medical Decision Making Medical decision making; is a 77-year-old female presents emergency room with flank pain. Labs show 20 red 5 whites in the urine. She is currently being treated for urinary tract infection. White count 7.5 hemoglobin 14 hematocrit of 45. INR 11. Potassium is 3.8. BUN 19 creatinine 0.9 and GFR 62. The patient's glucose is 102. While in emergency room the patient had hydration and medication provided. The patient also like CAT scan and it was reviewed. The pertinent findings by the radiologist is kidney; no masses are evident. No hydronephrosis is present. There is a 5.9 cm cyst measuring 8 pounds fell units on the lateral inferior left kidney. A small simon-pelvic cyst a present on the left portion. Couple small peripelvic cysts may be present within the right medullary kidney. A 0.5 cm left proximal ureteral stone may be present. Final impression left proximal ureteral stone with possibly mild left hydronephrosis. Peripelvic cysts with debris within the differential. Right peripelvic cyst. As read by Dr. Mendoza. The patient be advised increase her fluids. She'll be given medications to increase her urine output and medication for nausea vomiting and pain. Patient advised to follow-up with family physician and she'll also be given the name of the urologist on-call for follow-up as needed. Patient was advised to strain her urine. (Chava Knox) - Lab Data Lab Results 10/15/17 10/15/17 10/15/17 Range/Units 20:20 20:20 20:20 WBC 7.5 (3.8-10.6) k/uL RBC 4.78 (3.80-5.40) m/uL Hgb 14.5 (11.4-16.0) gm/dL Hct 45.0 (34.0-46.0) % MCV 94.1 (80.0-100.0) fL MCH 30.3 (25.0-35.0) pg MCHC 32.2 (31.0-37.0) g/dL RDW 14.3 (11.5-15.5) % Plt Count 271 (150-450) k/uL Neutrophils % 74 % Lymphocytes % 14 % Monocytes % 8 % Eosinophils % 1 % Basophils % 0 % Neutrophils # 5.6 (1.3-7.7) k/uL Lymphocytes # 1.1 (1.0-4.8) k/uL Monocytes # 0.6 (0-1.0) k/uL Eosinophils # 0.1 (0-0.7) k/uL Basophils # 0.0 (0-0.2) k/uL PT 10.7 (9.0-12.0) sec INR 1.1 (<1.2) APTT 23.4 (22.0-30.0) sec Sodium 146 H (137-145) mmol/L Potassium 3.8 (3.5-5.1) mmol/L Chloride 103 (98-107) mmol/L Carbon Dioxide 28 (22-30) mmol/L Anion Gap 15 mmol/L BUN 19 H (7-17) mg/dL Creatinine 0.90 (0.52-1.04) mg/dL Est GFR (CKD-EPI)AfAm 72 (>60 ml/min/1.73 sqM) Est GFR (CKD-EPI)NonAf 62 (>60 ml/min/1.73 sqM) Glucose 102 H (74-99) mg/dL Calcium 9.8 (8.4-10.2) mg/dL Total Bilirubin 0.4 (0.2-1.3) mg/dL AST 25 (14-36) U/L ALT 22 (9-52) U/L Alkaline Phosphatase 141 H (38-126) U/L Total Protein 7.2 (6.3-8.2) g/dL Albumin 4.0 (3.5-5.0) g/dL Urine Color Urine Appearance (Clear) Urine pH (5.0-8.0) Ur Specific Hobbs (1.001-1.035) Urine Protein (Negative) Urine Glucose (UA) (Negative) Urine Ketones (Negative) Urine Blood (Negative) Urine Nitrite (Negative) Urine Bilirubin (Negative) Urine Urobilinogen (<2.0) mg/dL Ur Leukocyte Esterase (Negative) Urine RBC (0-5) /hpf Urine WBC (0-5) /hpf Ur Squamous Epith Cells (0-4) /hpf Urine Bacteria (None) /hpf Cellular Casts (0) /lpf Hyaline Casts (0-2) /lpf Granular Casts (0) /lpf Urine Mucus (None) /hpf 10/15/17 Range/Units 20:28 WBC (3.8-10.6) k/uL RBC (3.80-5.40) m/uL Hgb (11.4-16.0) gm/dL Hct (34.0-46.0) % MCV (80.0-100.0) fL MCH (25.0-35.0) pg MCHC (31.0-37.0) g/dL RDW (11.5-15.5) % Plt Count (150-450) k/uL Neutrophils % % Lymphocytes % % Monocytes % % Eosinophils % % Basophils % % Neutrophils # (1.3-7.7) k/uL Lymphocytes # (1.0-4.8) k/uL Monocytes # (0-1.0) k/uL Eosinophils # (0-0.7) k/uL Basophils # (0-0.2) k/uL PT (9.0-12.0) sec INR (<1.2) APTT (22.0-30.0) sec Sodium (137-145) mmol/L Potassium (3.5-5.1) mmol/L Chloride (98-107) mmol/L Carbon Dioxide (22-30) mmol/L Anion Gap mmol/L BUN (7-17) mg/dL Creatinine (0.52-1.04) mg/dL Est GFR (CKD-EPI)AfAm (>60 ml/min/1.73 sqM) Est GFR (CKD-EPI)NonAf (>60 ml/min/1.73 sqM) Glucose (74-99) mg/dL Calcium (8.4-10.2) mg/dL Total Bilirubin (0.2-1.3) mg/dL AST (14-36) U/L ALT (9-52) U/L Alkaline Phosphatase (38-126) U/L Total Protein (6.3-8.2) g/dL Albumin (3.5-5.0) g/dL Urine Color Yellow Urine Appearance Cloudy H (Clear) Urine pH 5.5 (5.0-8.0) Ur Specific Hobbs 1.028 (1.001-1.035) Urine Protein 1+ H (Negative) Urine Glucose (UA) Negative (Negative) Urine Ketones Trace H (Negative) Urine Blood Negative (Negative) Urine Nitrite Negative (Negative) Urine Bilirubin Negative (Negative) Urine Urobilinogen 3.0 (<2.0) mg/dL Ur Leukocyte Esterase Trace H (Negative) Urine RBC 20 H (0-5) /hpf Urine WBC 5 (0-5) /hpf Ur Squamous Epith Cells 6 H (0-4) /hpf Urine Bacteria Rare H (None) /hpf Cellular Casts 5 (0) /lpf Hyaline Casts 81 H (0-2) /lpf Granular Casts 1 (0) /lpf Urine Mucus Few H (None) /hpf Disposition <Cornel Nicole - Last Filed: 10/15/17 19:59> Time of Disposition: 22:28 <Chava Knox - Last Filed: 10/15/17 22:28> Clinical Impression: Kidney stone on left side Disposition: HOME SELF-CARE Condition: Stable Instructions: Kidney Stones (ED), How to Strain Your Urine (ED) Additional Instructions: Increase fluids. Take medications as directed. Follow-up with family physician and on-call urologist if the pain persists. Prescriptions: Hydrocodone/Acetaminophen [Dannemora 5-325] 1 each PO Q6HR PRN #10 tab PRN Reason: Pain Metoclopramide HCl [Reglan] 5 mg PO TID #9 tablet Tamsulosin [Flomax] 0.4 mg PO DAILY #14 cap Referrals: Indira Rodriguez MD [Primary Care Provider] - 1-2 days Joshua Mcbride MD [STAFF PHYSICIAN] - 1-2 days
--- NOTE | 2017-10-15 20:22 | XR ---
EXAMINATION TYPE: XR KUB DATE OF EXAM: 10/15/2017 COMPARISON: NONE INDICATION: Pain flank pain bilaterally TECHNIQUE: Single view abdomen upright view FINDINGS: Fecal debris is through the ascending colon region. Normal colonic bowel gas within the transverse co marco. Psoas margins are normal. No organomegaly is present. No suspicious calcifications are evident. IMPRESSION: 1. Mild fecal debris within the ascending proximal transverse colon regions.
--- NOTE | 2017-10-15 20:30 | CT ---
EXAMINATION TYPE: CT abdomen pelvis wo con DATE OF EXAM: 10/15/2017 COMPARISON: NONE INDICATION: Pain kidney infection hematuria back pain DLP: 920 mGycm, Automated exposure control for dose reduction was used. CONTRAST: 0 mL of Isovue 300. Study performed without Oral Contrast TECHNIQUE: Axial images were obtained from above the diaphragm to the pubic rami in the axial plane a t 5 mm thick sections. Reconstructed images are reviewed on the computer in the coronal plane. FINDINGS: Limited CT sections are obtained the lung bases. The lung bases are clear. Small hiatal hernia may be present. CT ABDOMEN: Liver: Normal Spleen: Normal Pancreas: Normal Adrenal glands: The adrenal glands are normal. Gallbladder: Normal Kidneys: No masses are evident. No hydronephrosis is present. There is a 5.9 cm cyst measuring 8 [place] units on the lateral inferior left kidney. A small peripelvic cyst may be present on the lef t portion. Couple small peripelvic cyst may be present within the right medullary kidney. A 0.5 cm left proximal ureteral stone may be present. Aorta: Vascular calcification is within the aorta. Inferior vena cava: Normal. CT PELVIS: Loops of bowel within the abdomen and pelvis are normal. Loops of bowel are without oral contrast limiting their evaluation. Fecal debris is within the proximal ascending colon to the transverse col on. Appendix: Not identified. No suspicious tubular structures are evident. Urinary bladder: Decompressed with limited evaluation Genitourinary structures: Uterus and ovaries appear within normal limits. Osseous structures: No suspicious lytic or sclerotic lesions. Degenerative changes are noted at the b ilateral hips. Degenerative disc changes are through the lumbar spine. IMPRESSIONS: 1. Proximal left ureteral stone. There may be mild left hydronephrosis. Peripelvic cysts with debris within the differential. 2. Right peripelvic cysts.
[2017-10-15 20:34] LABS: Basophils % (A) 0 %; Eosinophils # (A) 0.1 k/uL (0-0.7); Eosinophils % (A) 1 %; HGB 14.5 gm/dL (11.4-16.0); Lymphocytes # (A) 1.1 k/uL (1.0-4.8); Lymphocytes % (A) 14 %; MCH 30.3 pg (25.0-35.0); MCHC 32.2 g/dL (31.0-37.0); MCV 94.1 fL (80.0-100.0); Mean Platelet Volume 7.2; Monocytes # (A) 0.6 k/uL (0-1.0); Monocytes % (A) 8 %; Neutrophils # (A) 5.6 k/uL (1.3-7.7); Neutrophils % (A) 74 %; Platelet Count 271 k/uL (150-450); RBC 4.78 m/uL (3.80-5.40); RDW 14.3 % (11.5-15.5); WBC 7.5 k/uL (3.8-10.6)
[2017-10-15 20:39] LABS: Appearance,Urine Cloudy (Clear); Bacteria,Urine Rare /hpf; Bilirubin,Urine Negative (Negative); Blood,Urine Negative (Negative); Cellular Casts,Urine 5 /lpf (0); Color,Urine Yellow; Glucose,Urine (UA) Negative (Negative); Granular Casts,Urine 1 /lpf (0); Hyaline Casts,Urine 81 /lpf (0-2); Ketones,Urine Trace (Negative); Leukocyte Esterase,Urine Trace (Negative); Mucus,Urine Few /hpf; Nitrite,Urine Negative (Negative); PH, Urine 5.5 (5.0-8.0); Protein,Urine 1+ (Negative); RBC,Urine 20 /hpf (0-5); Specific Gravity,Urine 1.028 (1.001-1.035); Squamous Epithelial Cell,Urine 6 /hpf (0-4); WBC,Urine 5 /hpf (0-5)
[2017-10-15 20:47] LABS: Calcium 9.8 mg/dL (8.4-10.2); Potassium 3.8 mmol/L (3.5-5.1); Total Bilirubin 0.4 mg/dL (0.2-1.3); Total Protein 7.2 g/dL (6.3-8.2)
[2017-10-15 21:01] LABS: INR 1.1 (<1.2); Partial Thromboplastin Time 23.4 sec (22.0-30.0); Prothrombin Time 10.7 sec (9.0-12.0)
[2017-10-15 22:12] VITALS: BP 133/61; PULSE 79; TEMP 98.3
== END 2017-10-15 22:50 | disposition home or self-care (01) ==
LOC: EC 18:09
DX: N20.2 Calculus of kidney with calculus of ureter (principal); N28.1 Cyst of kidney, acquired; N94.89 Other specified conditions associated with female genital organs and menstrual cycle; K21.9 Gastro-esophageal reflux disease without esophagitis; I25.2 Old myocardial infarction; I10 Essential (primary) hypertension; F32.9 Major depressive disorder, single episode, unspecified; Z87.440 Personal history of urinary (tract) infections; Z86.73 Personal history of transient ischemic attack (TIA), and cerebral infarction without residual deficits; Z79.899 Other long term (current) drug therapy; Z98.51 Tubal ligation status
CPT/HCPCS: 36415; 74018; 74176; 80053; 81001; 85025; 85610; 85730; 87086; 96360; 96361; 99284

== ENCOUNTER → 2017-12-01 | Outpatient (CLI) | payer MEDICARE ==
--- NOTE | 2017-12-01 16:13 | US ---
EXAMINATION TYPE: US kidneys/renal and bladder DATE OF EXAM: 12/01/2017 COMPARISON: CT 10/15/2017 CLINICAL HISTORY: R93.4 HX OF HYDRONEPHROSIS. EXAM MEASUREMENTS: Right Kidney: 10.2 x 5.3 x 4.9 cm Left Kidney: 10.2 x 5.4 x 5.7 cm Order states see CT, proximal lt uretal calc. Right Kidney: several cystic areas seen in renal pelvis, peripelvic cysts versus mild hydro. Left Kidney: lateral cyst measures 7.9 x 4.4 x 7.6 cm, cystic areas noted renal pelvis. Left uretera l pelvic junction stone is not identified on the ultrasound. Bladder: not well distended Bilateral Jets seen: no IMPRESSION: 1. Appearance of mild bilateral hydronephrosis. Peripelvic cysts could simulate this appearance. Find ings appear to correlate with 10/15/2017 CT examination.
== END | disposition home or self-care (01) ==
LOC: RADUSWWP 14:15
PROVIDERS: ATTEND Urology
DX: N13.30 Unspecified hydronephrosis (principal); N94.89 Other specified conditions associated with female genital organs and menstrual cycle
CPT/HCPCS: 76770

== ENCOUNTER → 2018-12-12 | Outpatient (CLI) | payer MEDICARE ==
--- NOTE | 2018-12-14 14:39 | MM ---
Reason for exam: screening (asymptomatic). Last mammogram was performed 3 years and 1 month ago. History: Patient is postmenopausal. Physical Findings: A clinical breast exam by your physician is recommended on an annual basis and results should be correlated with mammographic findings. MG 3D Screening Mammo W/Cad Bilateral CC and MLO view(s) were taken. XCCL view(s) were taken of the right breast. Prior study comparison: October 28, 2015, bilateral MG 3d screening mammo w/cad. February 19, 2014, bilateral MG screening mammo w CAD. There are scattered fibroglandular densities. Finding: There are typically benign vascular, round, diffuse/scattered calcifications in both breasts. No significant changes in finding since October 28, 2015 and February 19, 2014. ASSESSMENT: Benign, BI-RAD 2 RECOMMENDATION: Routine screening mammogram of both breasts in 1 year.
== END | disposition home or self-care (01) ==
LOC: RADMAMWWP 12:35
PROVIDERS: ATTEND Family Medicine
DX: Z12.31 Encounter for screening mammogram for malignant neoplasm of breast (principal)
CPT/HCPCS: 77063; 77067

== ENCOUNTER 2019-05-03 11:21 | Inpatient (IN) | payer MEDICARE ==
[2019-05-03] MEDS ORDERED: SODIUM CHLORIDE 0.9% 1,000 ML IV STA (12:01)
--- NOTE | 2019-05-03 12:04 | ED ---
General Adult HPI - General Chief complaint: Weakness Stated complaint: Weakness Time Seen by Provider: 05/03/19 11:46 Source: patient, family, EMS, RN notes reviewed Mode of arrival: EMS Limitations: no limitations - History of Present Illness Initial comments: Patient is a pleasant 78-year-old female presenting to the emergency Department with generalized weakness. Onset of symptoms was around 5 or 6 days ago. Patient did have a fall. Patient is unclear why she fell. Patient may have tripped or felt generally weak to return to fast. No syncope. Patient then has felt weak all over. Patient has not gone out of bed much in the last 5 days. Patient has gotten out of bed to the restroom and that's about it. Patient has had some meals brought to her the last day or 2 however has not been eating or drinking much overall the last 5 days. No isolated area of weakness. Patient does not believe she was seriously injured herself. No confusion or speech problems. - Related Data Home Medications Medication Instructions Recorded Confirmed Omeprazole [PriLOSEC] 20 mg PO DAILY 02/05/15 05/03/19 Venlafaxine HCl ER [Effexor XR] 150 mg PO DAILY 02/05/15 05/03/19 Carvedilol [Coreg] 3.125 mg PO DAILY 10/28/16 05/03/19 diphenhydrAMINE [Benadryl] 50 mg PO HS PRN 10/28/16 05/03/19 Aspirin EC [Ecotrin Low Dose] 81 mg PO DAILY 05/03/19 05/03/19 Furosemide [Lasix] 40 mg PO MOWEFRSA 05/03/19 05/03/19 Previous Rx's Medication Instructions Recorded Atorvastatin [Lipitor] 80 mg PO DAILY #30 tab 02/08/15 Allergies Allergy/AdvReac Type Severity Reaction Status Date / Time No Known Allergies Allergy Verified 05/03/19 14:28 Review of Systems ROS Statement: Those systems with pertinent positive or pertinent negative responses have been documented in the HPI. ROS Other: All systems not noted in ROS Statement are negative. Constitutional: Denies: fever Eyes: Denies: eye pain ENT: Denies: ear pain Respiratory: Denies: cough, dyspnea Cardiovascular: Denies: chest pain Endocrine: Reports: fatigue Gastrointestinal: Denies: abdominal pain Genitourinary: Denies: dysuria Musculoskeletal: Reports: back pain (Chronic unchanged back pain) Skin: Denies: rash Neurological: Reports: as per HPI. Denies: headache, confusion Past Medical History Past Medical History: Coronary Artery Disease (CAD), CVA/TIA, GERD/Reflux, Hyperlipidemia, Hypertension, Myocardial Infarction ([place]), Rheumatoid Arthritis ([place]) Additional Past Medical History / Comment(s): CVA 2011 Last Myocardial Infarction Date:: 01/2015 History of Any Multi-Drug Resistant Organisms: None Reported Past Surgical History: Heart Catheterization With Stent, Tubal Ligation Past Anesthesia/Blood Transfusion Reactions: No Reported Reaction Date of Last Stent Placement:: 01/2015 Past Psychological History: Depression Smoking Status: Never smoker Past Alcohol Use History: Rare Past Drug Use History: None Reported - Past Family History Father Family Medical History: Myocardial Infarction ([place]) Additional Family Medical History / Comment(s): passed at 60 years old. Mother Family Medical History: Congestive Heart Failure (CHF) Additional Family Medical History / Comment(s): at 99 years old. Brother(s) Family Medical History: Hyperlipidemia, Hypertension, Myocardial Infarction ([place]) Additional Family Medical History / Comment(s): still living. General Exam Limitations: no limitations General appearance: alert, in no apparent distress Head exam: Present: atraumatic, normocephalic Eye exam: Present: normal appearance, PERRL, EOMI. Absent: nystagmus ENT exam: Present: normal oropharynx Neck exam: Present: normal inspection Respiratory exam: Present: normal lung sounds bilaterally Cardiovascular Exam: Present: regular rate, normal rhythm GI/Abdominal exam: Present: soft. Absent: distended, tenderness Extremities exam: Present: normal inspection, full ROM. Absent: tenderness Neurological exam: Present: alert, oriented X3, CN II-XII intact. Absent: motor sensory deficit Expanded Neurological exam: Present: protecting the airway Patient oriented to: Present: person, place, time Speech: Present: fluid speech Cranial nerves: EOM's Intact: Normal Motor strength exam: RUE: 5, LUE: 5, RLE: 5, LLE: 5 Eye Response: (4) open spontaneously Motor Response: (6) obeys commands Verbal Response: (5) oriented Psychiatric exam: Present: normal affect, normal mood Skin exam: Present: normal color Course Vital Signs 05/03/19 05/03/19 05/03/19 11:26 13:34 15:03 Temperature 97.7 F Pulse Rate 84 84 94 Respiratory 16 18 18 Rate Blood Pressure 113/58 131/73 143/71 O2 Sat by Pulse 98 99 100 Oximetry EKG Findings - EKG Comments: EKG Findings:: Normal sinus rhythm 82. AK 122. QRS 98. QT 382. QTC 457. Left axis. Incomplete right bundle-branch block. Inferior Q waves. T-wave inversion in inferior. Medical Decision Making - Medical Decision Making Patient reevaluated and updated. Case discussed in detail with Dr. bosch, covering for Indira Wall, who will admit. - Lab Data Result diagrams: 05/03/19 13:51 05/03/19 12:35 Lab Results 05/03/19 05/03/19 05/03/19 Range/Units 12:35 12:35 12:35 WBC (3.8-10.6) k/uL RBC (3.80-5.40) m/uL Hgb (11.4-16.0) gm/dL Hct (34.0-46.0) % MCV (80.0-100.0) fL MCH (25.0-35.0) pg MCHC (31.0-37.0) g/dL RDW (11.5-15.5) % Plt Count (150-450) k/uL Neutrophils % % Lymphocytes % % Monocytes % % Eosinophils % % Basophils % % Neutrophils # (1.3-7.7) k/uL Lymphocytes # (1.0-4.8) k/uL Monocytes # (0-1.0) k/uL Eosinophils # (0-0.7) k/uL Basophils # (0-0.2) k/uL PT 11.5 (9.0-12.0) sec INR 1.1 (<1.2) APTT 20.1 L (22.0-30.0) sec Sodium 141 (137-145) mmol/L Potassium 4.2 (3.5-5.1) mmol/L Chloride 108 H (98-107) mmol/L Carbon Dioxide 28 (22-30) mmol/L Anion Gap 5 mmol/L BUN 51 H (7-17) mg/dL Creatinine 0.91 (0.52-1.04) mg/dL Est GFR (CKD-EPI)AfAm 70 (>60 ml/min/1.73 sqM) Est GFR (CKD-EPI)NonAf 61 (>60 ml/min/1.73 sqM) Glucose 133 H (74-99) mg/dL Plasma Lactic Acid David 1.6 (0.7-2.0) mmol/L Calcium 9.6 (8.4-10.2) mg/dL Phosphorus 2.3 L (2.5-4.5) mg/dL Magnesium 2.1 (1.6-2.3) mg/dL Total Bilirubin 0.7 (0.2-1.3) mg/dL AST 23 (14-36) U/L ALT 18 (9-52) U/L Alkaline Phosphatase 98 (38-126) U/L Creatine Kinase 66 (30-135) U/L Troponin I (0.000-0.034) ng/mL Total Protein 6.3 (6.3-8.2) g/dL Albumin 3.3 L (3.5-5.0) g/dL TSH 0.885 (0.465-4.680) mIU/L Free T4 1.87 (0.78-2.19) ng/dL Free T3 pg/mL 5.3 (2.8-5.3) pg/ml Urine Color Urine Appearance (Clear) Urine pH (5.0-8.0) Ur Specific [place] (1.001-1.035) Urine Protein (Negative) Urine Glucose (UA) (Negative) Urine Ketones (Negative) Urine Blood (Negative) Urine Nitrite (Negative) Urine Bilirubin (Negative) Urine Urobilinogen (<2.0) mg/dL Ur Leukocyte Esterase (Negative) Urine RBC (0-5) /hpf Urine WBC (0-5) /hpf Urine Bacteria (None) /hpf Urine Mucus (None) /hpf 05/03/19 05/03/19 05/03/19 Range/Units 12:35 13:51 14:37 WBC 9.8 (3.8-10.6) k/uL RBC 3.75 L (3.80-5.40) m/uL Hgb 11.7 (11.4-16.0) gm/dL Hct 36.5 (34.0-46.0) % MCV 97.2 (80.0-100.0) fL MCH 31.1 (25.0-35.0) pg MCHC 31.9 (31.0-37.0) g/dL RDW 14.8 (11.5-15.5) % Plt Count 263 (150-450) k/uL Neutrophils % 84 % Lymphocytes % 7 % Monocytes % 6 % Eosinophils % 0 % Basophils % 0 % Neutrophils # 8.2 H (1.3-7.7) k/uL Lymphocytes # 0.6 L (1.0-4.8) k/uL Monocytes # 0.6 (0-1.0) k/uL Eosinophils # 0.0 (0-0.7) k/uL Basophils # 0.0 (0-0.2) k/uL PT (9.0-12.0) sec INR (<1.2) APTT (22.0-30.0) sec Sodium (137-145) mmol/L Potassium (3.5-5.1) mmol/L Chloride (98-107) mmol/L Carbon Dioxide (22-30) mmol/L Anion Gap mmol/L BUN (7-17) mg/dL Creatinine (0.52-1.04) mg/dL Est GFR (CKD-EPI)AfAm (>60 ml/min/1.73 sqM) Est GFR (CKD-EPI)NonAf (>60 ml/min/1.73 sqM) Glucose (74-99) mg/dL Plasma Lactic Acid David (0.7-2.0) mmol/L Calcium (8.4-10.2) mg/dL Phosphorus (2.5-4.5) mg/dL Magnesium (1.6-2.3) mg/dL Total Bilirubin (0.2-1.3) mg/dL AST (14-36) U/L ALT (9-52) U/L Alkaline Phosphatase (38-126) U/L Creatine Kinase (30-135) U/L Troponin I <0.012 (0.000-0.034) ng/mL Total Protein (6.3-8.2) g/dL Albumin (3.5-5.0) g/dL TSH (0.465-4.680) mIU/L Free T4 (0.78-2.19) ng/dL Free T3 pg/mL (2.8-5.3) pg/ml Urine Color Yellow Urine Appearance Cloudy H (Clear) Urine pH 6.0 (5.0-8.0) Ur Specific [place] 1.020 (1.001-1.035) Urine Protein Trace H (Negative) Urine Glucose (UA) Negative (Negative) Urine Ketones 1+ H (Negative) Urine Blood Small H (Negative) Urine Nitrite Positive H (Negative) Urine Bilirubin Negative (Negative) Urine Urobilinogen 3.0 (<2.0) mg/dL Ur Leukocyte Esterase Large H (Negative) Urine RBC 8 H (0-5) /hpf Urine WBC 92 H (0-5) /hpf Urine Bacteria Few H (None) /hpf Urine Mucus Rare H (None) /hpf - Radiology Data Radiology results: report reviewed (Computed tomography scan of the brain shows no acute intercranial abnormality. Atrophy.), image reviewed (Chest x-ray shows chronic changes and cardiomegaly.) Disposition Clinical Impression: Dehydration, UTI (urinary tract infection) Disposition: ADMITTED IP TO THIS HOSP Is patient prescribed a controlled substance at d/c from ED?: No Referrals: Indira Rodriguez MD [Primary Care Provider] - 1-2 days Decision Time: 15:43
--- NOTE | 2019-05-03 13:03 | CT ---
EXAMINATION TYPE: CT brain wo con DATE OF EXAM: 05/03/2019 HISTORY: weakness CT DLP: 1024.4 mGycm. Automated Exposure Control for Dose Reduction was Utilized. TECHNIQUE: CT scan of the head is performed without contrast. COMPARISON: CT brain from 2012.. FINDINGS: There is no acute intracranial hemorrhage or midline shift identified. There is diffuse v entricular and sulcal prominence consistent with diffuse age-related cerebral atrophy findings most p rominent over bilateral temporal lobes. There is redemonstration of marked low-attenuation in the de ep and periventricular white matter consistent with chronic small vessel ischemic change. Vascular c onsultation distal internal carotid arteries bilaterally is redemonstrated The globes are intact and the visualized sinuses are clear. IMPRESSION: No acute intracranial hemorrhage or midline shift. There is mild to moderate diffuse ag e-related cerebral atrophy most prominent over bilateral temporal lobes with progression in atrophy f rom 2012 and advanced chronic small vessel ischemic change redemonstrated.
[2019-05-03 13:05] LABS: Albumin 3.3 g/dL (3.5-5.0); Calcium 9.6 mg/dL (8.4-10.2); Magnesium 2.1 mg/dL (1.6-2.3); Phosphorus 2.3 mg/dL (2.5-4.5); Potassium 4.2 mmol/L (3.5-5.1); Total Bilirubin 0.7 mg/dL (0.2-1.3); Total Protein 6.3 g/dL (6.3-8.2)
[2019-05-03 13:18] LABS: INR 1.1 (<1.2); Prothrombin Time 11.5 sec (9.0-12.0)
[2019-05-03 13:21] LABS: T4, Free (Free Thyroxine) 1.87 ng/dL (0.78-2.19)
[2019-05-03 13:38] LABS: Partial Thromboplastin Time 20.1 sec (22.0-30.0)
--- NOTE | 2019-05-03 13:46 | XR ---
EXAMINATION TYPE: XR chest 2V DATE OF EXAM: 05/03/2019 COMPARISON: Chest x-ray October 28, 2016 HISTORY: Weakness. TECHNIQUE: Frontal and lateral views of the chest are obtained. FINDINGS: There is chronic parenchymal changes bilaterally without suspicious focal air space opacit y, pleural effusion, or pneumothorax seen. The cardiac silhouette size is mildly enlarged. Multileve l spurring in thoracic spine. Moderate compression type fracture at roughly T10 level is new from peter or. IMPRESSION: Chronic changes and cardiomegaly without acute pulmonary process.
[2019-05-03 14:08] LABS: Basophils % (A) 0 %; Eosinophils % (A) 0 %; HCT 36.5 % (34.0-46.0); HGB 11.7 gm/dL (11.4-16.0); Lymphocytes # (A) 0.6 k/uL (1.0-4.8); Lymphocytes % (A) 7 %; MCH 31.1 pg (25.0-35.0); MCHC 31.9 g/dL (31.0-37.0); MCV 97.2 fL (80.0-100.0); Mean Platelet Volume 6.4; Monocytes # (A) 0.6 k/uL (0-1.0); Monocytes % (A) 6 %; Neutrophils # (A) 8.2 k/uL (1.3-7.7); Neutrophils % (A) 84 %; Platelet Count 263 k/uL (150-450); RBC 3.75 m/uL (3.80-5.40); RDW 14.8 % (11.5-15.5); WBC 9.8 k/uL (3.8-10.6)
--- NOTE | 2019-05-03 14:30 | P.HPIM ---
History of Present Illness This is a pleasant 78 years old female with past medical history of CVA/TIA, coronary artery disease, GERD, hyperlipidemia, hypertension, rheumatoid arthritis, she presents because of generalized weakness and low back pain. She states that one week ago last Monday she was going to her bathroom at night as usual when she lost her balance and fell on her lower back and butts, and since then she has having excruciating pain in the lower back which is felt about 6/10 in severity, nonradiating, not associated radiation to the lower extremity. Because of her pain and she could not get out of bed for the next 3 days and she was not eating and drinking well as she lives in assisted living, after 3 days that aids at her assisted-living house start render her foot up stairs however because there were concerned she is having difficulty getting out of bed they called the daughter and son and patient came to emergency room today. Patient feels generally weak but no specific weakness in one arm or leg, she complaining of from pain in her lower back however now it looks easing down. Also on examination she does not have tenderness in the lower back, She had similar low back pain due to degenerative disc disease and she was to follow up with orthopedic associates and after therapy including epidural injection, she felt better until she fell and she have the pain again. However currently she denies weakness in her legs. No numbness or decreased sensation. No urine or bowel incontinence. No saddle anesthesia Patient denies coughing, no dyspnea, no dizziness, no syncope or presyncope. No abdominal pain or nausea vomiting, no diarrhea however patient feels constipated. Also she states that her urine is cloudy but she denies dysuria or change in frequency Vitas looks stable and patient is afebrile Labs showing sodium and potassium within normal limits, creatinine 0.9 with an elevated BUN, glucose 133, TSH and free T4 are within normal limits, troponins negative. Chest x-ray: Chronic changes with no acute pulmonary process. CT of the head: No acute process as per radiologist, however she has mild to moderate diffuse age-related cerebral atrophy, mostly on the temporal lobes which is progressive from 2011 with advanced chronic small vessel changes. EKG: Normal sinus rhythm at [address]-T changes. QTC is 457 On admission she was a started on normal saline at 100 mL per hour Review of Systems CONSTITUTIONAL: No fever, no malaise, no fatigue. HEENT: No recent visual problems or hearing problems. Denied any sore throat. CARDIOVASCULAR: No orthopnea, PND, no palpitations, no syncope. PULMONARY: No shortness of breath, no cough, no hemoptysis. GASTROINTESTINAL: No diarrhea, no nausea, no vomiting, no abdominal pain. Normoactive bowel sounds. NEUROLOGICAL: No headaches, no weakness, no numbness. HEMATOLOGICAL: Denies any bleeding or petechiae. GENITOURINARY: Denies any burning micturition, frequency, or urgency. MUSCULOSKELETAL/RHEUMATOLOGICAL: Denies any joint swelling ENDOCRINE: Denies any polyuria or polydipsia. Past Medical History Past Medical History: Coronary Artery Disease (CAD), CVA/TIA, GERD/Reflux, Hyperlipidemia, Hypertension, Myocardial Infarction ([place]), Rheumatoid Arthritis ([place]) Additional Past Medical History / Comment(s): CVA 2011 Last Myocardial Infarction Date:: 01/2015 History of Any Multi-Drug Resistant Organisms: None Reported Past Surgical History: Heart Catheterization With Stent, Tubal Ligation Past Anesthesia/Blood Transfusion Reactions: No Reported Reaction Date of Last Stent Placement:: 01/2015 Past Psychological History: Depression Smoking Status: Never smoker Past Alcohol Use History: Rare Past Drug Use History: None Reported - Past Family History Father Family Medical History: Myocardial Infarction ([place]) Additional Family Medical History / Comment(s): passed at 60 years old. Mother Family Medical History: Congestive Heart Failure (CHF) Additional Family Medical History / Comment(s): at 99 years old. Brother(s) Family Medical History: Hyperlipidemia, Hypertension, Myocardial Infarction ([place]) Additional Family Medical History / Comment(s): still living. Medications and Allergies Home Medications Medication Instructions Recorded Confirmed Type RX: Omeprazole [PriLOSEC] 20 mg PO DAILY 02/05/15 10/28/16 History RX: Venlafaxine HCl ER [Effexor XR] 150 mg PO DAILY 02/05/15 10/28/16 History RX: Aspirin 325 mg PO DAILY #30 tab 02/08/15 10/28/16 Rx RX: Atorvastatin [Lipitor] 80 mg PO DAILY #30 tab 02/08/15 10/28/16 Rx RX: Clopidogrel [Plavix] 75 mg PO DAILY #30 tab 02/08/15 10/28/16 Rx RX: Nitroglycerin Sl Tabs 0.4 mg SUBLINGUAL Q5M PRN #50 tab 02/08/15 10/28/16 Rx [Nitrostat] RX: Carvedilol [Coreg] 3.125 mg PO BID 10/28/16 10/28/16 History RX: Gabapentin [Neurontin] 300 - 600 mg PO Q8H 10/28/16 10/28/16 History RX: Lisinopril [Zestril] 1.25 mg PO DAILY 10/28/16 10/28/16 History RX: diphenhydrAMINE [Benadryl] 25 mg PO HS PRN 10/28/16 10/28/16 History Cefuroxime Axetil [Ceftin] 500 mg PO BID #4 tab 10/30/16 Rx Multivitamins, Thera [Multivitamin 1 tab PO DAILY #30 tablet 10/30/16 Rx (formulary)] RX: predniSONE 20 mg PO DIRECTED #24 tab 10/30/16 Rx Hydrocodone/Acetaminophen [[place] 1 each PO Q6HR PRN #10 tab 10/15/17 Rx 5-325] Metoclopramide HCl [Reglan] 5 mg PO TID #9 tablet 10/15/17 Rx Tamsulosin [Flomax] 0.4 mg PO DAILY #14 cap 10/15/17 Rx Allergies Allergy/AdvReac Type Severity Reaction Status Date / Time No Known Allergies Allergy Verified 10/15/17 18:16 Physical Exam Vitals: Vital Signs Temp Pulse Resp BP Pulse Ox 05/03/19 13:34 84 18 131/73 99 05/03/19 11:26 97.7 F 84 16 113/58 98 Intake and Output 05/02/19 05/03/19 05/03/19 22:59 06:59 14:59 Other: Weight 73.936 kg GENERAL: The patient is alert and oriented x3, not in any acute distress. Well developed, well nourished. HEENT: Pupils are round and equally reacting to light. EOMI. No scleral icterus. No conjunctival pallor. Normocephalic, atraumatic. No pharyngeal erythema. No thyromegaly. CARDIOVASCULAR: S1 and S2 present. No murmurs, rubs, or gallops. PULMONARY: Chest is clear to auscultation, no wheezing or crackles. ABDOMEN: Soft, nontender, nondistended, normoactive bowel sounds. No palpable organomegaly. MUSCULOSKELETAL: No joint swelling or deformity. No back tenderness or low back tenderness EXTREMITIES: No cyanosis, clubbing, or pedal edema. NEUROLOGICAL: Gross neurological examination did not reveal any focal deficits. Cranial nerves are grossly intact. Strength is 5/5 in all activity included in both lower extremities. Sensation is intact. Meningeal signs are absent SKIN: No rashes. No petechiae Results CBC & Chem 7: 05/03/19 12:35 Labs: Abnormal Lab Results - Last 24 Hours (Table) 05/03/19 05/03/19 Range/Units 12:35 12:35 APTT 20.1 L (22.0-30.0) sec Chloride 108 H (98-107) mmol/L BUN 51 H (7-17) mg/dL Glucose 133 H (74-99) mg/dL Phosphorus 2.3 L (2.5-4.5) mg/dL Albumin 3.3 L (3.5-5.0) g/dL Assessment and Plan Assessment: Fall while going to the bathroom, about one week ago Acute Low back pain secondary to the fall generalized weakness secondary to above Dehydration Hyperlipidemia Hypertension History of CVA/TIA History of coronary artery disease GERD Chronic rheumatoid arthritis History of chronic low back pain and degenerative joint disease Plan: This is a pleasant 78 years old female who presents because of weakness and dehydration. Check urinalysis. Pain management. Ask for physical therapy evaluation. Continue with IV fluids Labs and medication were reviewed.. Continue same treatment. Continue with s ymptomatic treatment. Resume home medication. Monitor lytes and vitals. DVT and GI prophylaxis. Further recommendations of the clinical course of the patient DVT prophylaxis: Subcutaneous heparin GI Prophylaxis: Pepcid PT/OT: Pending Prognosis is guarded
[2019-05-03 14:52] LABS: Appearance,Urine Cloudy (Clear); Bacteria,Urine Few /hpf; Bilirubin,Urine Negative (Negative); Blood,Urine Small (Negative); Color,Urine Yellow; Glucose,Urine (UA) Negative (Negative); Ketones,Urine 1+ (Negative); Leukocyte Esterase,Urine Large (Negative); Mucus,Urine Rare /hpf; Nitrite,Urine Positive (Negative); Protein,Urine Trace (Negative); RBC,Urine 8 /hpf (0-5); WBC,Urine 92 /hpf (0-5)
[2019-05-03] MEDS ORDERED: NALOXONE 0.4 MG/ML 1 ML VIAL IV PRN (15:43)
[2019-05-03] MEDS: SODIUM CHLORIDE 0.9% 1,000 ML IV SCH (16:54)
[2019-05-03] MEDS: MAG HYDROX/AL HYDROX/SIMETH 30 ML CUP PO SCH (22:39)
[2019-05-03] MEDS: diphenhydrAMINE 25 MG CAP PO PRN (22:40)
[2019-05-03] MEDS: HEPARIN SODIUM,PORCINE 5,000 UNIT/ML 1 ML VIAL SQ SCH (22:40)
[2019-05-04] MEDS: SODIUM CHLORIDE 0.9% 1,000 ML IV SCH ×2 (00:20→20:55)
[2019-05-04] MEDS: PANTOPRAZOLE 40 MG TABLET PO SCH (08:23)
[2019-05-04] MEDS: ATORVASTATIN 80 MG TAB PO SCH (08:23)
[2019-05-04] MEDS: FUROSEMIDE 40 MG TAB PO SCH (08:23)
[2019-05-04] MEDS: CARVEDILOL 3.125 MG TAB PO SCH (08:23)
[2019-05-04] MEDS: ASPIRIN 81 MG PO SCH (08:23)
[2019-05-04] MEDS: VENLAFAXINE HCL ER 150 MG CAP PO SCH (08:23)
[2019-05-04] MEDS: MAG HYDROX/AL HYDROX/SIMETH 30 ML CUP PO SCH ×4 (08:23→21:32)
[2019-05-04] MEDS: HEPARIN SODIUM,PORCINE 5,000 UNIT/ML 1 ML VIAL SQ SCH ×2 (08:24→21:32)
[2019-05-04 08:32] LABS: Basophils # (A) 0.1 k/uL (0-0.2); Basophils % (A) 1 %; Eosinophils # (A) 0.1 k/uL (0-0.7); Eosinophils % (A) 1 %; HCT 33.6 % (34.0-46.0); HGB 10.9 gm/dL (11.4-16.0); Lymphocytes # (A) 1.6 k/uL (1.0-4.8); Lymphocytes % (A) 15 %; MCH 31.5 pg (25.0-35.0); MCHC 32.4 g/dL (31.0-37.0); MCV 97.2 fL (80.0-100.0); Mean Platelet Volume 6.3; Monocytes # (A) 0.7 k/uL (0-1.0); Monocytes % (A) 6 %; Neutrophils # (A) 8.1 k/uL (1.3-7.7); Neutrophils % (A) 75 %; Platelet Count 283 k/uL (150-450); RBC 3.45 m/uL (3.80-5.40); WBC 10.8 k/uL (3.8-10.6)
[2019-05-04 08:49] LABS: Calcium 8.7 mg/dL (8.4-10.2); Potassium 3.8 mmol/L (3.5-5.1)
[2019-05-04] MEDS ORDERED: FAMOTIDINE 20 MG/2 ML VIAL IV SCH (09:00)
--- NOTE | 2019-05-04 16:52 | P.HPIM ---
History of Present Illness This is a pleasant 78 years old female with past medical history of CVA/TIA, coronary artery disease, GERD, hyperlipidemia, hypertension, rheumatoid arthritis, she presents because of generalized weakness and low back pain. She states that one week ago last Monday she was going to her bathroom at night as usual when she lost her balance and fell on her lower back and butts, and since then she has having excruciating pain in the lower back which is felt about 6/10 in severity, nonradiating, not associated radiation to the lower extremity. Because of her pain and she could not get out of bed for the next 3 days and she was not eating and drinking well as she lives in assisted living, after 3 days that aids at her assisted-living house start render her foot up stairs however because there were concerned she is having difficulty getting out of bed they called the daughter and son and patient came to emergency room today. Patient feels generally weak but no specific weakness in one arm or leg, she complaining of from pain in her lower back however now it looks easing down. Also on examination she does not have tenderness in the lower back, She had similar low back pain due to degenerative disc disease and she was to follow up with orthopedic associates and after therapy including epidural injection, she felt better until she fell and she have the pain again. However currently she denies weakness in her legs. No numbness or decreased sensation. No urine or bowel incontinence. No saddle anesthesia Patient denies coughing, no dyspnea, no dizziness, no syncope or presyncope. No abdominal pain or nausea vomiting, no diarrhea however patient feels constipated. Also she states that her urine is cloudy but she denies dysuria or change in frequency Vitas looks stable and patient is afebrile Labs showing sodium and potassium within normal limits, creatinine 0.9 with an elevated BUN, glucose 133, TSH and free T4 are within normal limits, troponins negative. Chest x-ray: Chronic changes with no acute pulmonary process. CT of the head: No acute process as per radiologist, however she has mild to moderate diffuse age-related cerebral atrophy, mostly on the temporal lobes which is progressive from 2011 with advanced chronic small vessel changes. EKG: Normal sinus rhythm at [address]-T changes. QTC is 457 On admission she was a started on normal saline at 100 mL per hour 05/04/2019 Today patient is awake and alert however she still feels generalized weakness and pain in her back. Patient is afebrile and her vitals are stable. Her leukocytes went up a little bit at 10.8 K. BMP is unremarkable with creatinine normal at 0.7. She still and ceftriaxone for possible UTI. Urine culture is pending. Continue with normal saline at 50 mL/h. We will order renal ultrasound Review of systems CONSTITUTIONAL: No fever, no malaise, no fatigue. HEENT: No recent visual problems or hearing problems. Denied any sore throat. CARDIOVASCULAR: No orthopnea, PND, no palpitations, no syncope. PULMONARY: No shortness of breath, no cough, no hemoptysis. GASTROINTESTINAL: No diarrhea, no nausea, no vomiting, no abdominal pain. Normoactive bowel sounds. NEUROLOGICAL: No headaches, no weakness, no numbness. HEMATOLOGICAL: Denies any bleeding or petechiae. GENITOURINARY: Denies any burning micturition, frequency, or urgency. MUSCULOSKELETAL/RHEUMATOLOGICAL: Denies any joint swelling ENDOCRINE: Denies any polyuria or polydipsia. Past Medical History Past Medical History: Coronary Artery Disease (CAD), CVA/TIA, GERD/Reflux, Hyp erlipidemia, Hypertension, Myocardial Infarction (CT), Rheumatoid Arthritis (RA) Additional Past Medical History / Comment(s): CVA 2011 Last Myocardial Infarction Date:: 01/2015 History of Any Multi-Drug Resistant Organisms: None Reported Past Surgical History: Heart Catheterization With Stent, Tubal Ligation Past Anesthesia/Blood Transfusion Reactions: No Reported Reaction Date of Last Stent Placement:: 01/2015 Smoking Status: Never smoker Past Alcohol Use History: Rare Past Drug Use History: None Reported - Past Family History Father Family Medical History: Myocardial Infarction (CT) Additional Family Medical History / Comment(s): passed at 60 years old. Mother Family Medical History: Congestive Heart Failure (CHF) Additional Family Medical History / Comment(s): at 99 years old. Brother(s) Family Medical History: Hyperlipidemia, Hypertension, Myocardial Infarction (CT) Additional Family Medical History / Comment(s): still living. Medications and Allergies Home Medications Medication Instructions Recorded Confirmed Type Omeprazole [PriLOSEC] 20 mg PO DAILY 02/05/15 05/03/19 History Venlafaxine HCl ER [Effexor XR] 150 mg PO DAILY 02/05/15 05/03/19 History Atorvastatin [Lipitor] 80 mg PO DAILY #30 tab 02/08/15 05/03/19 Rx Carvedilol [Coreg] 3.125 mg PO DAILY 10/28/16 05/03/19 History diphenhydrAMINE [Benadryl] 50 mg PO HS PRN 10/28/16 05/03/19 History Aspirin EC [Ecotrin Low Dose] 81 mg PO DAILY 05/03/19 05/03/19 History Furosemide [Lasix] 40 mg PO MOWEFRSA 05/03/19 05/03/19 History Allergies Allergy/AdvReac Type Severity Reaction Status Date / Time No Known Allergies Allergy Verified 05/03/19 14:28 Physical Exam Vitals: Vital Signs Temp Pulse Pulse Resp BP Pulse Ox 05/04/19 13:55 97.7 F 86 18 115/72 100 05/04/19 05:20 98.4 F 93 18 142/73 98 05/04/19 01:55 97.7 F 86 18 115/72 100 05/03/19 20:20 98.4 F 87 19 147/68 97 05/03/19 17:03 96.9 F L 76 18 154/77 98 Intake and Output 05/04/19 05/04/19 05/04/19 06:59 14:59 22:59 Intake Total 990 Balance 990 Intake: IV 450 Sodium Chloride 0.9% 1, 400 000 ml @ 50 mls/hr IV . Q20H [facility] Rx#:[id number] cefTRIAXone 1 gm In 50 Sodium Chloride 0.9% 50 ml @ 100 mls/hr IVPB ONCE STA Rx#:[id number] Oral 540 Other: Voiding Method Toilet # Voids 2 3 # Bowel Movements 1 GENERAL: The patient is alert and oriented x3, not in any acute distress. Well developed, well nourished. HEENT: Pupils are round and equally reacting to light. EOMI. No scleral icterus. No conjunctival pallor. Normocephalic, atraumatic. No pharyngeal erythema. No thyromegaly. CARDIOVASCULAR: S1 and S2 present. No murmurs, rubs, or gallops. PULMONARY: Chest is clear to auscultation, no wheezing or crackles. ABDOMEN: Soft, nontender, nondistended, normoactive bowel sounds. No palpable organomegaly. MUSCULOSKELETAL: No joint swelling or deformity. No back tenderness or low back tenderness EXTREMITIES: No cyanosis, clubbing, or pedal edema. NEUROLOGICAL: Gross neurological examination did not reveal any focal deficits. Cranial nerves are grossly intact. Strength is 5/5 in all activity included in both lower extremities. Sensation is intact. Meningeal signs are absent SKIN: No rashes. No petechiae Results CBC & Chem 7: 05/04/19 07:54 05/04/19 07:54 Labs: Abnormal Lab Results - Last 24 Hours (Table) 05/04/19 05/04/19 Range/Units 07:54 07:54 WBC 10.8 H (3.8-10.6) k/uL RBC 3.45 L (3.80-5.40) m/uL Hgb 10.9 L (11.4-16.0) gm/dL Hct 33.6 L (34.0-46.0) % Neutrophils # 8.1 H (1.3-7.7) k/uL Chloride 113 H (98-107) mmol/L BUN 31 H (7-17) mg/dL Glucose 128 H (74-99) mg/dL Microbiology - Last 24 Hours (Table) 05/03/19 14:37 Urine Culture - Preliminary Urine,Catheterized Thrombosis Risk Factor Assmnt - Choose All That Apply Each Risk Factor Represents 3 Points: Age 75 years or older Thrombosis Risk Factor Assessment Total Risk Factor Score: 3 Thrombosis Risk Factor Assessment Level: Moderate Risk Assessment and Plan Assessment: Fall while going to the bathroom, about one week ago Acute Low back pain secondary to the fall acute urinary tract infection generalized weakness secondary to above Dehydration Hyperlipidemia Hypertension History of CVA/TIA History of coronary artery disease GERD Chronic rheumatoid arthritis History of chronic low back pain and degenerative joint disease Plan: This is a pleasant 78 years old female who presents because of weakness and dehydration. Follow-up urine culture. Pain management. Ask for physical therapy evaluation. Continue with IV fluids . Check renal ultrasound Labs and medication were reviewed.. Continue same treatment. Continue with symptomatic treatment. Resume home medication. Monitor lytes and vitals. DVT and GI prophylaxis. Further recommendations of the clinical course of the patient DVT prophylaxis: Subcutaneous heparin GI Prophylaxis: Pepcid PT/OT: Pending Prognosis is guarded
[2019-05-04 20:53] LABS: Glucose,Whole Blood 98 mg/dL (75-99)
[2019-05-04] MEDS: diphenhydrAMINE 25 MG CAP PO PRN (21:32)
[2019-05-05 07:09] LABS: Glucose,Whole Blood 105 mg/dL (75-99)
[2019-05-05] MEDS: HEPARIN SODIUM,PORCINE 5,000 UNIT/ML 1 ML VIAL SQ SCH ×2 (08:07→22:32)
[2019-05-05] MEDS: MAG HYDROX/AL HYDROX/SIMETH 30 ML CUP PO SCH ×4 (08:07→22:32)
[2019-05-05] MEDS: VENLAFAXINE HCL ER 150 MG CAP PO SCH (08:08)
[2019-05-05] MEDS: CARVEDILOL 3.125 MG TAB PO SCH (08:08)
[2019-05-05] MEDS: ASPIRIN 81 MG PO SCH (08:08)
[2019-05-05] MEDS: ATORVASTATIN 80 MG TAB PO SCH (08:08)
[2019-05-05] MEDS: PANTOPRAZOLE 40 MG TABLET PO SCH (08:08)
--- NOTE | 2019-05-05 10:26 | P.PN ---
Subjective This is a pleasant 78 years old female with past medical history of CVA/TIA, coronary artery disease, GERD, hyperlipidemia, hypertension, rheumatoid arthritis, she presents because of generalized weakness and low back pain. She states that one week ago last Monday she was going to her bathroom at night as usual when she lost her balance and fell on her lower back and butts, and since then she has having excruciating pain in the lower back which is felt about 6/10 in severity, nonradiating, not associated radiation to the lower extremity. Because of her pain and she could not get out of bed for the next 3 days and she was not eating and drinking well as she lives in assisted living, after 3 days that aids at her assisted-living house start render her foot up stairs however because there were concerned she is having difficulty getting out of bed they called the daughter and son and patient came to emergency room today. Patient feels generally weak but no specific weakness in one arm or leg, she complaining of from pain in her lower back however now it looks easing down. Also on examination she does not have tenderness in the lower back, She had similar low back pain due to degenerative disc disease and she was to follow up with orthopedic associates and after therapy including epidural injection, she felt better until she fell and she have the pain again. However currently she denies weakness in her legs. No numbness or decreased sensation. No urine or bowel incontinence. No saddle anesthesia Patient denies coughing, no dyspnea, no dizziness, no syncope or presyncope. No abdominal pain or nausea vomiting, no diarrhea however patient feels constipated. Also she states that her urine is cloudy but she denies dysuria or change in frequency Vitas looks stable and patient is afebrile Labs showing sodium and potassium within normal limits, creatinine 0.9 with an elevated BUN, glucose 133, TSH and free T4 are within normal limits, troponins negative. Chest x-ray: Chronic changes with no acute pulmonary process. CT of the head: No acute process as per radiologist, however she has mild to moderate diffuse age-related cerebral atrophy, mostly on the temporal lobes which is progressive from 2011 with advanced chronic small vessel changes. EKG: Normal sinus rhythm at [address]-T changes. QTC is 457 On admission she was a started on normal saline at 100 mL per hour 05/04/2019 Today patient is awake and alert however she still feels generalized weakness and pain in her back. Patient is afebrile and her vitals are stable. Her leukocytes went up a little bit at 10.8 K. BMP is unremarkable with creatinine normal at 0.7. She still and ceftriaxone for possible UTI. Urine culture is pending. Continue with normal saline at 50 mL/h. We will order renal ultrasound 05/05/2019 Patient is awake and alert, her weakness is improving today. However she still complaining from back pain about 6/10. No urinary symptoms currently. Vitals are stable. We'll check renal ultrasound and repeat labs in the morning Objective - Vital Signs Vital signs: Vital Signs Temp 98.9 F 05/05/19 05:14 Pulse 89 05/05/19 05:14 Resp 20 05/05/19 05:14 BP 119/62 05/05/19 05:14 Pulse Ox 96 05/05/19 05:14 Intake & Output 05/04/19 05/05/19 05/05/19 18:59 06:59 18:59 Intake Total 990 Output Total 16 Balance 990 -16 Intake: IV 450 Sodium Chloride 0.9% 1, 400 000 ml @ 50 mls/hr IV . Q20H [facility] Rx#:[id number] cefTRIAXone 1 gm In 50 Sodium Chloride 0.9% 50 ml @ 100 mls/hr IVPB ONCE STA Rx#:[id number] Oral 540 Output: Urine 1 Post Void Residual 15 Other: Voiding Method Toilet Toilet # Voids 3 1 # Bowel Movements 1 - Exam GENERAL: The patient is alert and oriented x3, not in any acute distress. Well developed, well nourished. HEENT: Pupils are round and equally reacting to light. EOMI. No scleral icterus. No conjunctival pallor. Normocephalic, atraumatic. No pharyngeal erythema. No thyromegaly. CARDIOVASCULAR: S1 and S2 present. No murmurs, rubs, or gallops. PULMONARY: Chest is clear to auscultation, no wheezing or crackles. ABDOMEN: Soft, nontender, nondistended, normoactive bowel sounds. No palpable organomegaly. MUSCULOSKELETAL: No joint swelling or deformity. EXTREMITIES: No cyanosis, clubbing, or pedal edema. NEUROLOGICAL: Gross neurological examination did not reveal any focal deficits. SKIN: No rashes. no petechiae. - Labs CBC & Chem 7: 05/04/19 07:54 05/04/19 07:54 Labs: Abnormal Lab Results - Last 24 Hours (Table) 05/05/19 Range/Units 07:06 POC Glucose (mg/dL) 105 H (75-99) mg/dL Microbiology - Last 24 Hours (Table) 05/03/19 14:37 Urine Culture - Preliminary Urine,Catheterized Gram Neg Bacilli Assessment and Plan Assessment: Fall while going to the bathroom, about one week ago Acute Low back pain secondary to the fall acute urinary tract infection generalized weakness secondary to above Dehydration Hyperlipidemia Hypertension History of CVA/TIA History of coronary artery disease GERD Chronic rheumatoid arthritis History of chronic low back pain and degenerative joint disease Plan: This is a pleasant 78 years old female who presents because of weakness and dehydration. Follow-up urine culture. Pain management. Ask for physical therapy evaluation. Discontinue IV fluids . Check renal ultrasound Labs and medication were reviewed.. Continue same treatment. Continue with symptomatic treatment. Resume home medication. Monitor lytes and vitals. DVT and GI prophylaxis. Further recommendations of the clinical course of the patient DVT prophylaxis: Subcutaneous heparin GI Prophylaxis: Pepcid PT/OT: Pending Prognosis is guarded
--- NOTE | 2019-05-05 11:23 | US ---
EXAMINATION TYPE: US renals and bladder DATE OF EXAM: 05/05/2019 COMPARISON: US & CT 2018 CLINICAL HISTORY: UTI with back pain. UTI, back pain x 1 week, exam done portable. EXAM MEASUREMENTS: Right Kidney: 10.3 x 6.1 x 4.8 cm Left Kidney: 10.0 x 4.4 x 4.0 cm Right Kidney: several cystic areas seen in renal pelvis, peripelvic cysts vs. mild hydronephrosis Left Kidney: hydronephrosis, exophytic lateral cyst 7.1 x 4.0 x 5.6cm Bladder: not well distended There is a slightly lobulated left lateral renal cyst. There is mild hydronephrosis on the left. Ther e are parapelvic cysts on the right. IMPRESSION: MILD LEFT-SIDED HYDRONEPHROSIS.
[2019-05-05 12:03] LABS: Glucose,Whole Blood 116 mg/dL (75-99)
--- NOTE | 2019-05-05 13:23 | P.GSCN ---
History of Present Illness Consult date: 05/05/19 Reason for Consult: Left hydronephrosis Requesting physician: Mazin E Sheet History of present illness: The patient is a 78-year-old white female who fell walking to the bathroom on 04/27/2019. She hurt her back, and spent the next 3 days in bed at her assisted living home. She ultimately was brought to the emergency room for evaluation and was admitted. She reports chronic lower back pain, but denies flank pain. She denies any prior history of urolithiasis. She has been treated for infrequent UTIs. A renal ultrasound has shown evidence of mild left hydronephrosis. A computed tomography scan in October 2017 showed evidence of possible mild left hydronephrosis due to a 5 mm left UPJ calculus. Review of Systems - Constitutional Denies chills, Denies fever - Gastrointestinal Denies nausea, Denies vomiting - Genitourinary Genitourinary: Denies dysuria, Denies hematuria Past Medical History Past Medical History: Coronary Artery Disease (CAD), CVA/TIA, GERD/Reflux, Hyperlipidemia, Hypertension, Myocardial Infarction ([place]), Rheumatoid Arthritis (RA) Additional Past Medical History / Comment(s): CVA 2011 Last Myocardial Infarction Date:: 01/2015 History of Any Multi-Drug Resistant Organisms: None Reported Past Surgical History: Heart Catheterization With Stent, Tubal Ligation Past Anesthesia/Blood Transfusion Reactions: No Reported Reaction Date of Last Stent Placement:: 01/2015 Smoking Status: Never smoker Past Alcohol Use History: Rare Past Drug Use History: None Reported - Past Family History Father Family Medical History: Myocardial Infarction (UT) Additional Family Medical History / Comment(s): passed at 60 years old. Mother Family Medical History: Congestive Heart Failure (CHF) Additional Family Medical History / Comment(s): at 99 years old. Brother(s) Family Medical History: Hyperlipidemia, Hypertension, Myocardial Infarction ([place]) Additional Family Medical History / Comment(s): still living. Medications and Allergies Home Medications Medication Instructions Recorded Confirmed Type Omeprazole [PriLOSEC] 20 mg PO DAILY 02/05/15 05/03/19 History Venlafaxine HCl ER [Effexor XR] 150 mg PO DAILY 02/05/15 05/03/19 History Atorvastatin [Lipitor] 80 mg PO DAILY #30 tab 02/08/15 05/03/19 Rx Carvedilol [Coreg] 3.125 mg PO DAILY 10/28/16 05/03/19 History diphenhydrAMINE [Benadryl] 50 mg PO HS PRN 10/28/16 05/03/19 History Aspirin EC [Ecotrin Low Dose] 81 mg PO DAILY 05/03/19 05/03/19 History Furosemide [Lasix] 40 mg PO MOWEFRSA 05/03/19 05/03/19 History Allergies Allergy/AdvReac Type Severity Reaction Status Date / Time No Known Allergies Allergy Verified 05/03/19 14:28 Surgical - Exam Vital Signs Temp Pulse Resp BP Pulse Ox 97.7 F 84 16 113/58 98 05/03/19 11:26 05/03/19 11:26 05/03/19 11:26 05/03/19 11:26 05/03/19 11:26 - General well developed, well nourished, no distress - Neck no masses, trachea midline - Respiratory normal respiratory effort - Abdomen Abdomen: soft, non tender, no guarding, no rigid, no rebound - Psychiatric oriented to time, oriented to person, oriented to place, speech is normal, memory intact Results - Labs 05/04/19 07:54 05/04/19 07:54 Abnormal Lab Results - Last 24 Hours (Table) 05/05/19 05/05/19 Range/Units 07:06 12:01 POC Glucose (mg/dL) 105 H 116 H (75-99) mg/dL Microbiology - Last 24 Hours (Table) 05/03/19 14:37 Urine Culture - Preliminary Urine,Catheterized Gram Neg Bacilli - Imaging CT scan - abdomen: report reviewed, image reviewed US - kidney/bladder: report reviewed, image reviewed Assessment and Plan (1) Unspecified hydronephrosis Current Visit: Yes Status: Acute Code(s): N13.30 - UNSPECIFIED HYDRONEPHROSIS SNOMED Code(s): 11165072 (2) UTI (urinary tract infection) Current Visit: Yes Status: Acute Code(s): N39.0 - URINARY TRACT INFECTION, SITE NOT SPECIFIED SNOMED Code(s): 64195082 Plan: The patient is currently receiving Rocephin, pending the final urine culture result. The preliminary result shows gram-negative bacilli. Ultrasound shows mild left hydronephrosis. A computed tomography scan will be obtained for further evaluation. Time with Patient: Greater than 30
--- NOTE | 2019-05-05 14:27 | CT ---
EXAMINATION TYPE: CT abdomen pelvis wo con DATE OF EXAM: 05/05/2019 COMPARISON: 10/15/2017 HISTORY: Low back pain CT DLP: 728.2 mGycm Automated exposure control for dose reduction was used. TECHNIQUE: Helical acquisition of images was performed from the lung bases through the pelvis. FINDINGS: Lung bases are clear. There is no pleural effusion. There is no pericardial effusion. Heart is top no rmal in size. Liver spleen pancreas gallbladder appear normal. Bile ducts are not dilated. Stomach is intact. There is small hiatal hernia. There is 6 cm cystic fluid collection lateral to the left kidney consistent with cortical cyst unchanged. There is no adrenal mass. There is left-sided hydronephrosis with calculus in the proximal left urete r that measures 8 mm. There is some fullness of the right renal calyces. There is no hydroureter on t he right side. Bladder distends smoothly. There is no inguinal hernia. There is no evidence of a pelv ic mass. There is no sign of bowel obstruction. There is no mesenteric edema. There is no ascites or free air. There is fracture of L2 vertebra with 5% loss of height. There is multilevel spondylotic changes. The re is a degenerative first-degree L4-5 spondylolisthesis. There is compression fracture of T10 with 4 0% loss of height. IMPRESSION: THERE IS CALCULUS IN THE PROXIMAL LEFT URETER WITH LEFT-SIDED HYDRONEPHROSIS AND HYDROURETER. HYDRONE PHROSIS APPEARS INCREASED COMPARED TO LAST EXAM. CALCULUS IS MIGRATED INFERIORLY A VERY SMALL AMOUNT COMPARED TO OLD CT SCAN. RIGHT-SIDED CALIECTASIS OR PARAPELVIC CYSTS UNCHANGED. ACUTE COMPRESSION FRACTURE OF L2 IS A CHANGE COMPARED TO OLD EXAM. THERE IS PROGRESSION OF THE T10 COMPRESSION FRACTURE COMPARED TO OLD EXAM.
[2019-05-05] MEDS: HYDROcodone/APAP 5-325MG 1 EACH TAB PO PRN ×2 (16:09→21:11)
[2019-05-05 16:52] LABS: Glucose,Whole Blood 109 mg/dL (75-99)
[2019-05-05] MEDS: LIDOCAINE 5% PATCH TOPICAL SCH (16:57)
[2019-05-05 20:54] LABS: Glucose,Whole Blood 113 mg/dL (75-99)
[2019-05-06] MEDS: HYDROcodone/APAP 5-325MG 1 EACH TAB PO PRN ×3 (06:13→22:23)
[2019-05-06 07:20] LABS: Glucose,Whole Blood 114 mg/dL (75-99)
[2019-05-06] MEDS: MAG HYDROX/AL HYDROX/SIMETH 30 ML CUP PO SCH ×4 (07:42→22:17)
[2019-05-06] MEDS: HEPARIN SODIUM,PORCINE 5,000 UNIT/ML 1 ML VIAL SQ SCH ×2 (07:42→19:57)
[2019-05-06] MEDS: ASPIRIN 81 MG PO SCH (07:42)
[2019-05-06] MEDS: ATORVASTATIN 80 MG TAB PO SCH (07:42)
[2019-05-06] MEDS: PANTOPRAZOLE 40 MG TABLET PO SCH (07:42)
[2019-05-06] MEDS: CALCIUM CARB-VIT D 500MG-200UN 1 EACH TAB PO SCH ×3 (07:43→17:55)
[2019-05-06] MEDS: CARVEDILOL 3.125 MG TAB PO SCH (07:43)
[2019-05-06] MEDS: FUROSEMIDE 40 MG TAB PO SCH (07:44)
[2019-05-06] MEDS: LIDOCAINE 5% PATCH TOPICAL SCH (07:56)
[2019-05-06] MEDS: VENLAFAXINE HCL ER 150 MG CAP PO SCH (07:56)
[2019-05-06 07:58] LABS: Basophils % (A) 1 %; Eosinophils # (A) 0.3 k/uL (0-0.7); Eosinophils % (A) 5 %; HCT 27.8 % (34.0-46.0); Hypochromasia Marked; Lymphocytes # (A) 1.1 k/uL (1.0-4.8); Lymphocytes % (A) 15 %; MCH 31.4 pg (25.0-35.0); MCHC 31.2 g/dL (31.0-37.0); MCV 100.8 fL (80.0-100.0); Macrocytosis Slight; Mean Platelet Volume 6.4; Monocytes # (A) 0.4 k/uL (0-1.0); Monocytes % (A) 6 %; Neutrophils # (A) 5.1 k/uL (1.3-7.7); Neutrophils % (A) 71 %; Platelet Count 236 k/uL (150-450); RBC 2.76 m/uL (3.80-5.40); RDW 15.2 % (11.5-15.5); WBC 7.2 k/uL (3.8-10.6)
[2019-05-06 08:03] LABS: HGB 8.7 gm/dL (11.4-16.0)
--- NOTE | 2019-05-06 08:12 | P.PN ---
Subjective This is a pleasant 78 years old female with past medical history of CVA/TIA, coronary artery disease, GERD, hyperlipidemia, hypertension, rheumatoid arthritis, she presents because of generalized weakness and low back pain. She states that one week ago last Monday she was going to her bathroom at night as usual when she lost her balance and fell on her lower back and butts, and since then she has having excruciating pain in the lower back which is felt about 6/10 in severity, nonradiating, not associated radiation to the lower extremity. Because of her pain and she could not get out of bed for the next 3 days and she was not eating and drinking well as she lives in assisted living, after 3 days that aids at her assisted-living house start render her foot up stairs however because there were concerned she is having difficulty getting out of bed they called the daughter and son and patient came to emergency room today. Patient feels generally weak but no specific weakness in one arm or leg, she complaining of from pain in her lower back however now it looks easing down. Also on examination she does not have tenderness in the lower back, She had similar low back pain due to degenerative disc disease and she was to follow up with orthopedic associates and after therapy including epidural injection, she felt better until she fell and she have the pain again. However currently she denies weakness in her legs. No numbness or decreased sensation. No urine or bowel incontinence. No saddle anesthesia Patient denies coughing, no dyspnea, no dizziness, no syncope or presyncope. No abdominal pain or nausea vomiting, no diarrhea however patient feels constipated. Also she states that her urine is cloudy but she denies dysuria or change in frequency Vitas looks stable and patient is afebrile Labs showing sodium and potassium within normal limits, creatinine 0.9 with an elevated BUN, glucose 133, TSH and free T4 are within normal limits, troponins negative. Chest x-ray: Chronic changes with no acute pulmonary process. CT of the head: No acute process as per radiologist, however she has mild to moderate diffuse age-related cerebral atrophy, mostly on the temporal lobes which is progressive from 2011 with advanced chronic small vessel changes. EKG: Normal sinus rhythm at [address]-T changes. QTC is 457 On admission she was a started on normal saline at 100 mL per hour 05/04/2019 Today patient is awake and alert however she still feels generalized weakness and pain in her back. Patient is afebrile and her vitals are stable. Her leukocytes went up a little bit at 10.8 K. BMP is unremarkable with creatinine normal at 0.7. She still and ceftriaxone for possible UTI. Urine culture is pending. Continue with normal saline at 50 mL/h. We will order renal ultrasound 05/05/2019 Patient is awake and alert, her weakness is improving today. However she still complaining from back pain about 6/10. No urinary symptoms currently. Vitals are stable. We'll check renal ultrasound and repeat labs in the morning 05/06/2019 Patient is awake and alert, her weakness is improving, no urinary symptoms however she still complaining from low back pain. Yesterday patient was found to have left mild hydronephrosis, brush maker recommended CAT scan of the abdomen and pelvis was showing left ureteral stone with hydroureter and left hydronephrosis. Also patient has acute L2 compression fracture and progression of T10 compression fracture. Call for orthopedic consult. Her pain is cont rolled with [place] and lidocaine patch. Vitals are stable. he is back to normal, hemoglobin 8.7, urine culture showing E. coli sensitive to ceftriaxone should that she was on. Physical therapist recommended home health care which is ordered Objective - Vital Signs Vital signs: Vital Signs Temp 98.9 F 05/06/19 05:00 Pulse 78 05/06/19 05:00 Resp 18 05/06/19 05:00 BP 137/72 05/06/19 05:00 Pulse Ox 97 05/06/19 05:00 Intake & Output 05/05/19 05/06/19 05/06/19 18:59 06:59 18:59 Intake Total 540 600 Output Total 0 Balance 540 600 Intake: Oral 540 600 Output: Urine 0 Post Void Residual 0 Other: Voiding Method Toilet Toilet # Voids 2 2 # Bowel Movements 0 - Exam GENERAL: The patient is alert and oriented x3, not in any acute distress. Well developed, well nourished. HEENT: Pupils are round and equally reacting to light. EOMI. No scleral icterus. No conjunctival pallor. Normocephalic, atraumatic. No pharyngeal erythema. No thyromegaly. CARDIOVASCULAR: S1 and S2 present. No murmurs, rubs, or gallops. PULMONARY: Chest is clear to auscultation, no wheezing or crackles. ABDOMEN: Soft, nontender, nondistended, normoactive bowel sounds. No palpable organomegaly. -MUSCULOSKELETAL: No joint swelling or deformity. No back tenderness, mild EXTREMITIES: No cyanosis, clubbing, or pedal edema. NEUROLOGICAL: Gross neurological examination did not reveal any focal deficits. SKIN: No rashes. no petechiae. - Labs CBC & Chem 7: 05/06/19 07:38 05/04/19 07:54 Labs: Abnormal Lab Results - Last 24 Hours (Table) 05/05/19 05/05/19 05/05/19 Range/Units 12:01 16:50 20:34 RBC (3.80-5.40) m/uL Hgb (11.4-16.0) gm/dL Hct (34.0-46.0) % MCV (80.0-100.0) fL POC Glucose (mg/dL) 116 H 109 H 113 H (75-99) mg/dL 05/06/19 05/06/19 Range/Units 07:18 07:38 RBC 2.76 L (3.80-5.40) m/uL Hgb 8.7 L D (11.4-16.0) gm/dL Hct 27.8 L (34.0-46.0) % MCV 100.8 H (80.0-100.0) fL POC Glucose (mg/dL) 114 H (75-99) mg/dL Microbiology - Last 24 Hours (Table) 05/03/19 14:37 Urine Culture - Final Urine,Catheterized Escherichia coli Assessment and Plan Assessment: Fall while going to the bathroom, about one week prior to admission Acute Low back pain secondary to the fall left ureteral with left hydroureter and hydronephrosis acute urinary tract infection Secondary to E. coli acute L2 compression fracture and progression of T10 compression fracture generalized weakness secondary to above Dehydration Hyperlipidemia Hypertension History of CVA/TIA History of coronary artery disease GERD Chronic rheumatoid arthritis History of chronic low back pain and degenerative joint disease Plan: This is a pleasant 78 years old female who presents because of weakness and dehydration. Continue with Rocephin with the plan to switch to oral antibiotics upon discharge. Follow-up recommendation by neurologist for her left ureteral stone and left hydronephrosis/hydroureter. Consult orthopedics for her compression fracture at L2 and T10. Pain management Labs and medication were reviewed.. Continue same treatment. Continue with symptomatic treatment. Resume home medication. Monitor lytes and vitals. DVT and GI prophylaxis. Further recommendations of the clinical course of the patient DVT prophylaxis: Subcutaneous heparin GI Prophylaxis: Pepcid PT: Recommended home health care Prognosis is guarded
[2019-05-06 08:20] LABS: African American GFR (CKD) >90 (>60 ml/min/1.73 sqM); Anion Gap 3 mmol/L; Blood Urea Nitrogen 15 mg/dL (7-17); Calcium 8.1 mg/dL (8.4-10.2); Carbon Dioxide 26 mmol/L (22-30); Chloride 112 mmol/L (98-107); Glucose 108 mg/dL (74-99); Potassium 4.2 mmol/L (3.5-5.1); Sodium 141 mmol/L (137-145)
--- NOTE | 2019-05-06 09:43 | XR ---
EXAMINATION TYPE: XR KUB DATE OF EXAM: 05/06/2019 COMPARISON: 05/05/2019 HISTORY: Left ureteral calculus TECHNIQUE: One view abdominal series FINDINGS: Calcifications in the right hemipelvis are seen by recent CT CT scan alignment outside the course of the ureter. Degenerative changes spine and arthropathy of the hips. Bowel gas pattern is nonspecific with air seen throughout both large and small bowel loops. The mid left ureteral calculus seen on previous CT scan is not seen with certainty in standard x-ray. IMPRESSION: 1. Previous left ureteral calculus is not seen with certainty and today's exam. 2. Nonspecific abdomen correlate for ileus.
[2019-05-06 12:11] LABS: Glucose,Whole Blood 108 mg/dL (75-99)
[2019-05-06] MEDS ORDERED: BISACODYL 10 MG SUPP RECTAL STA (14:17)
[2019-05-06] MEDS ORDERED: MAGNESIUM HYDROXIDE 2,400 MG/10 ML CUP PO ONE (14:26)
--- NOTE | 2019-05-06 14:28 | P.GSCN ---
<Celia Boudreaux [place] - Last Filed: 05/06/19 14:28> History of Present Illness Consult date: 05/06/19 Reason for Consult: ileus Requesting physician: Mazin E Ronny History of present illness: CHIEF COMPLAINT: Ileus HISTORY OF PRESENT ILLNESS: 78 year old female who is admitted to the hospital secondary to UTI, left ureteral stone and hydronephrosis. Patient was evaluated by urology and computed tomography scan was obtained revealing calculus in the proximal left ureter with left-sided hydronephrosis and hydroureter. No signs of bowel obstruction. No mesenteric edema. No ascites or free air. Patient had KUB x-ray completed this morning revealing nonspecific abdomen. Air seen throughout both large and small bowel loops. Correlate for ileus. General surgery was consulted for further evaluation. Patient examined at the bedside. She is currently nothing by mouth however she reports having a normal breakfast. She had faro[place] toast and tolerated well. Denies nausea or vomiting. She re ports having a bowel movement 2 days ago. She states she is feeling slightly constipated. She has been receiving [place] every 6 hours for pain. PAST MEDICAL HISTORY: See list. PAST SURGICAL HISTORY: See list. SOCIAL HISTORY: No illicit drug use. REVIEW OF SYSTEMS: CONSTITUTIONAL: Denies fever or chills. HEENT: Denies blurred vision, vision changes, or eye pain. Denies hemoptysis CARDIOVASCULAR: Denies chest pain or pressure. RESPIRATORY: No shortness of breath. GASTROINTESTINAL: Refer to HPI for pertinent findings HEMATOLOGIC: Denies bleeding disorders. GENITOURINARY: Denies any blood in urine. SKIN: Denies pruitis. Denies rash. PHYSICAL EXAM: VITAL SIGNS: Reviewed. GENERAL: Well-developed in no acute distress. HEENT: No sclera icterus. Extraocular movements grossly intact. Moist buccal mucosa. Head is atraumatic, normocephalic. ABDOMEN: Soft. Nondistended. Nontender. Positive bowel sounds. NEUROLOGIC: Alert and oriented. Cranial nerves II through XII grossly intact. ASSESSMENT: 1. Ileus, may be secondary to UTI and worsened with use of narcotics PLAN: 1. Full liquid diet. Advance as tolerated 2. Dulcolax suppository x 1 3. Milk of Magnesia x 1 4. Senokot-S BID to prevent constipation due narcotic usage 5. Increase activity as tolerated Nurse practitioner note has been reviewed by physician. Signing provider agrees with the documented findings, assessment, and plan of care. Past Medical History Past Medical History: Coronary Artery Disease (CAD), CVA/TIA, GERD/Reflux, Hyperlipidemia, Hypertension, Myocardial Infarction (ME), Rheumatoid Arthritis (RA) Additional Past Medical History / Comment(s): CVA 2011 Last Myocardial Infarction Date:: 01/2015 History of Any Multi-Drug Resistant Organisms: None Reported Past Surgical History: Heart Catheterization With Stent, Tubal Ligation Past Anesthesia/Blood Transfusion Reactions: No Reported Reaction Date of Last Stent Placement:: 01/2015 Smoking Status: Never smoker Past Alcohol Use History: Rare Past Drug Use History: None Reported - Past Family History Father Family Medical History: Myocardial Infarction (ME) Additional Family Medical History / Comment(s): passed at 60 years old. Mother Family Medical History: Congestive Heart Failure (CHF) Additional Family Medical History / Comment(s): at 99 years old. Brother(s) Family Medical History: Hyperlipidemia, Hypertension, Myocardial Infarction (ME) Additional Family Medical History / Comment(s): still living. Medications and Allergies Home Medications Medication Instructions Recorded Confirmed Type Omeprazole [PriLOSEC] 20 mg PO DAILY 02/05/15 05/03/19 History Venlafaxine HCl ER [Effexor XR] 150 mg PO DAILY 02/05/15 05/03/19 History Atorvastatin [Lipitor] 80 mg PO DAILY #30 tab 02/08/15 05/03/19 Rx Carvedilol [Coreg] 3.125 mg PO DAILY 10/28/16 05/03/19 History diphenhydrAMINE [Benadryl] 50 mg PO HS PRN 10/28/16 05/03/19 History Aspirin EC [Ecotrin Low Dose] 81 mg PO DAILY 05/03/19 05/03/19 History Furosemide [Lasix] 40 mg PO MOWEFRSA 05/03/19 05/03/19 History Allergies Allergy/AdvReac Type Severity Reaction Status Date / Time No Known Allergies Allergy Verified 05/03/19 14:28 Surgical - Exam Vital Signs Temp Pulse Resp BP Pulse Ox 97.7 F 84 16 113/58 98 05/03/19 11:26 05/03/19 11:26 05/03/19 11:26 05/03/19 11:26 05/03/19 11:26 Results - Labs 05/06/19 07:38 05/06/19 07:38 Abnormal Lab Results - Last 24 Hours (Table) 05/05/19 05/05/19 05/06/19 Range/Units 16:50 20:34 07:18 RBC (3.80-5.40) m/uL Hgb (11.4-16.0) gm/dL Hct (34.0-46.0) % MCV (80.0-100.0) fL Chloride (98-107) mmol/L Glucose (74-99) mg/dL POC Glucose (mg/dL) 109 H 113 H 114 H (75-99) mg/dL Calcium (8.4-10.2) mg/dL Magnesium (1.6-2.3) mg/dL 05/06/19 05/06/19 05/06/19 Range/Units 07:38 07:38 07:38 RBC 2.76 L (3.80-5.40) m/uL Hgb 8.7 L D (11.4-16.0) gm/dL Hct 27.8 L (34.0-46.0) % MCV 100.8 H (80.0-100.0) fL Chloride 112 H (98-107) mmol/L Glucose 108 H (74-99) mg/dL POC Glucose (mg/dL) (75-99) mg/dL Calcium 8.1 L (8.4-10.2) mg/dL Magnesium 2.4 H (1.6-2.3) mg/dL 05/06/19 Range/Units 12:09 RBC (3.80-5.40) m/uL Hgb (11.4-16.0) gm/dL Hct (34.0-46.0) % MCV (80.0-100.0) fL Chloride (98-107) mmol/L Glucose (74-99) mg/dL POC Glucose (mg/dL) 108 H (75-99) mg/dL Calcium (8.4-10.2) mg/dL Magnesium (1.6-2.3) mg/dL Microbiology - Last 24 Hours (Table) 05/03/19 14:37 Urine Culture - Final Urine,Catheterized Escherichia coli Diabetes panel 05/06/19 Range/Units 07:38 Sodium 141 (137-145) mmol/L Potassium 4.2 (3.5-5.1) mmol/L Chloride 112 H (98-107) mmol/L Carbon Dioxide 26 (22-30) mmol/L BUN 15 (7-17) mg/dL Creatinine 0.61 (0.52-1.04) mg/dL Glucose 108 H (74-99) mg/dL Calcium 8.1 L (8.4-10.2) mg/dL Calcium panel 05/06/19 Range/Units 07:38 Calcium 8.1 L (8.4-10.2) mg/dL Pituitary panel 05/06/19 Range/Units 07:38 Sodium 141 (137-145) mmol/L Potassium 4.2 (3.5-5.1) mmol/L Chloride 112 H (98-107) mmol/L Carbon Dioxide 26 (22-30) mmol/L BUN 15 (7-17) mg/dL Creatinine 0.61 (0.52-1.04) mg/dL Glucose 108 H (74-99) mg/dL Calcium 8.1 L (8.4-10.2) mg/dL Adrenal panel 05/06/19 Range/Units 07:38 Sodium 141 (137-145) mmol/L Potassium 4.2 (3.5-5.1) mmol/L Chloride 112 H (98-107) mmol/L Carbon Dioxide 26 (22-30) mmol/L BUN 15 (7-17) mg/dL Creatinine 0.61 (0.52-1.04) mg/dL Glucose 108 H (74-99) mg/dL Calcium 8.1 L (8.4-10.2) mg/dL <Cornel Rodriguez - Last Filed: 05/06/19 18:08> History of Present Illness History of present illness: As above. Patient with ileus by CAT scan. Otherwise feels well. Tolerating diet. Did have a recent bowel movement. Some constipation we think related to narcotic use. Continue advancing diet. Continue stool softeners. Surgical - Exam Vital Signs Temp Pulse Resp BP Pulse Ox 97.7 F 84 16 113/58 98 05/03/19 11:26 05/03/19 11:26 05/03/19 11:26 05/03/19 11:26 05/03/19 11:26 Results - Labs 05/06/19 07:38 05/06/19 07:38 Abnormal Lab Results - Last 24 Hours (Table) 05/05/19 05/06/19 05/06/19 Range/Units 20:34 07:18 07:38 RBC 2.76 L (3.80-5.40) m/uL Hgb 8.7 L D (11.4-16.0) gm/dL Hct 27.8 L (34.0-46.0) % MCV 100.8 H (80.0-100.0) fL Chloride (98-107) mmol/L Glucose (74-99) mg/dL POC Glucose (mg/dL) 113 H 114 H (75-99) mg/dL Calcium (8.4-10.2) mg/dL Magnesium (1.6-2.3) mg/dL 05/06/19 05/06/19 05/06/19 Range/Units 07:38 07:38 12:09 RBC (3.80-5.40) m/uL Hgb (11.4-16.0) gm/dL Hct (34.0-46.0) % MCV (80.0-100.0) fL Chloride 112 H (98-107) mmol/L Glucose 108 H (74-99) mg/dL POC Glucose (mg/dL) 108 H (75-99) mg/dL Calcium 8.1 L (8.4-10.2) mg/dL Magnesium 2.4 H (1.6-2.3) mg/dL 05/06/19 Range/Units 17:14 RBC (3.80-5.40) m/uL Hgb (11.4-16.0) gm/dL Hct (34.0-46.0) % MCV (80.0-100.0) fL Chloride (98-107) mmol/L Glucose (74-99) mg/dL POC Glucose (mg/dL) 138 H (75-99) mg/dL Calcium (8.4-10.2) mg/dL Magnesium (1.6-2.3) mg/dL Microbiology - Last 24 Hours (Table) 05/03/19 14:37 Urine Culture - Final Urine,Catheterized Escherichia coli Diabetes panel 05/06/19 Range/Units 07:38 Sodium 141 (137-145) mmol/L Potassium 4.2 (3.5-5.1) mmol/L Chloride 112 H (98-107) mmol/L Carbon Dioxide 26 (22-30) mmol/L BUN 15 (7-17) mg/dL Creatinine 0.61 (0.52-1.04) mg/dL Glucose 108 H (74-99) mg/dL Calcium 8.1 L (8.4-10.2) mg/dL Calcium panel 05/06/19 Range/Units 07:38 Calcium 8.1 L (8.4-10.2) mg/dL Pituitary panel 05/06/19 Range/Units 07:38 Sodium 141 (137-145) mmol/L Potassium 4.2 (3.5-5.1) mmol/L Chloride 112 H (98-107) mmol/L Carbon Dioxide 26 (22-30) mmol/L BUN 15 (7-17) mg/dL Creatinine 0.61 (0.52-1.04) mg/dL Glucose 108 H (74-99) mg/dL Calcium 8.1 L (8.4-10.2) mg/dL Adrenal panel 05/06/19 Range/Units 07:38 Sodium 141 (137-145) mmol/L Potassium 4.2 (3.5-5.1) mmol/L Chloride 112 H (98-107) mmol/L Carbon Dioxide 26 (22-30) mmol/L BUN 15 (7-17) mg/dL Creatinine 0.61 (0.52-1.04) mg/dL Glucose 108 H (74-99) mg/dL Calcium 8.1 L (8.4-10.2) mg/dL
[2019-05-06] MEDS ORDERED: MAGNESIUM HYDROXIDE 2,400 MG/10 ML CUP PO SCH (14:30)
--- NOTE | 2019-05-06 15:07 | P.CNOR ---
History of Present Illness - [facility] Consult date: 05/06/19 Requesting physician: Mazin E Ronny Consult reason: fracture (Acute L2 compression fracture deformity), low back pa in History of present illness: Patient is a very pleasant 78-year-old female who is seen and examined the bedside after consultation was placed for intractable back pain. Patient states several days ago, approximately one week, she was at home in her bedroom when she got up to use the restroom in the middle of the night. She states she turned herself around and fell directly on her buttocks. She has been experiencing increased low back pain since that time. She had significant difficulty with ambulation due to her pain and spent most of her time in bed. She states her back pain is exacerbated with bending, twisting, movement of the spine, coughing, sneezing. Her back pain is better controlled while at rest. She was brought to [facility] on 05/03/2019 for further evaluation. Emergency room dictation states patient was experiencing generalized weakness. She was also dehydrated. At the bedside patient denies any lower extremity weakness or radiculopathy bilaterally. Patient was found to have left hydronephrosis, left ureteral stone, and has been seen by urology. She had also been started on Rocephin for urinary tract infection. Patient states she is urinating without any difficulty. She is afebrile. Patient had a KUB x-ray imaging. This morning revealing nonspecific abdomen. Patient has been seen and examined by general surgery for ileus. They're not currently planning for surgical intervention we'll continue conservative treatment. Patient does have a past medical history which includes CVA/TIA, coronary artery disease, hyperlipidemia, and hypertension. Patient denies any previous back injury or known vertebral body fracture. Past Medical History Past Medical History: Coronary Artery Disease (CAD), CVA/TIA, GERD/Reflux, Hyperlipidemia, Hypertension, Myocardial Infarction (LA), Rheumatoid Arthritis (RA) Additional Past Medical History / Comment(s): CVA 2011 Last Myocardial Infarction Date:: 01/2015 History of Any Multi-Drug Resistant Organisms: None Reported Past Surgical History: Heart Catheterization With Stent, Tubal Ligation Past Anesthesia/Blood Transfusion Reactions: No Reported Reaction Date of Last Stent Placement:: 01/2015 Smoking Status: Never smoker Past Alcohol Use History: Rare Past Drug Use History: None Reported - Past Family History Father Family Medical History: Myocardial Infarction (LA) Additional Family Medical History / Comment(s): passed at 60 years old. Mother Family Medical History: Congestive Heart Failure (CHF) Additional Family Medical History / Comment(s): at 99 years old. Brother(s) Family Medical History: Hyperlipidemia, Hypertension, Myocardial Infarction (LA) Additional Family Medical History / Comment(s): still living. Medications and Allergies Home Medications Medication Instructions Recorded Confirmed Type Omeprazole [PriLOSEC] 20 mg PO DAILY 02/05/15 05/03/19 History Venlafaxine HCl ER [Effexor XR] 150 mg PO DAILY 02/05/15 05/03/19 History Atorvastatin [Lipitor] 80 mg PO DAILY #30 tab 02/08/15 05/03/19 Rx Carvedilol [Coreg] 3.125 mg PO DAILY 10/28/16 05/03/19 History diphenhydrAMINE [Benadryl] 50 mg PO HS PRN 10/28/16 05/03/19 History Aspirin EC [Ecotrin Low Dose] 81 mg PO DAILY 05/03/19 05/03/19 History Furosemide [Lasix] 40 mg PO MOWEFRSA 05/03/19 05/03/19 History Allergies Allergy/AdvReac Type Severity Reaction Status Date / Time No Known Allergies Allergy Verified 05/03/19 14:28 Physical Examination Physical exam: Patient is awake, alert, and oriented 3 Vital signs stable Good chest excursion with deep inspiration and expiration Abdomen soft nontender Examination of lumbar spine reveals skin is intact with no abrasions, lacerations, or bruises; no erythema, purulence or signs of infection Plan palpation along the mid to lower lumbar spine Dorsiflexion, plantarflexion, and extensor hallucis longus positive sustained bilaterally Lower extremity strength 5/5 bilaterally Patellar reflex 2+ bilaterally and Achilles reflexes 2+ bilaterally No lower extremity hyperreflexia bilaterally Straight leg test negative bilateral lower extremities No signs or symptoms of DVT; no calf pain No pain with internal and external rotation of the hips bilaterally Neurovascularly intact Results Pertinent Studies: CT the abdomen and pelvis taken on 05/05/2019 reviewed for orthopedic purposes: Acute L2 vertebral body burst-type fracture with approximately 5% height loss at the superior endplate; Chronic T10 compression fracture deformity with approximately 40% height loss that has had some progression as compared to previous imaging from 10/15/2017; T12-L1 significant degenerative disc disease with anterior osteophytic spurring; L4-5 spondylolisthesis; L5-S1 degenerative disc disease - Labs Labs: Abnormal Lab Results - Last 24 Hours (Table) 05/05/19 05/05/19 05/06/19 Range/Units 16:50 20:34 07:18 RBC (3.80-5.40) m/uL Hgb (11.4-16.0) gm/dL Hct (34.0-46.0) % MCV (80.0-100.0) fL Chloride (98-107) mmol/L Glucose (74-99) mg/dL POC Glucose (mg/dL) 109 H 113 H 114 H (75-99) mg/dL Calcium (8.4-10.2) mg/dL Magnesium (1.6-2.3) mg/dL 05/06/19 05/06/19 05/06/19 Range/Units 07:38 07:38 07:38 RBC 2.76 L (3.80-5.40) m/uL Hgb 8.7 L D (11.4-16.0) gm/dL Hct 27.8 L (34.0-46.0) % MCV 100.8 H (80.0-100.0) fL Chloride 112 H (98-107) mmol/L Glucose 108 H (74-99) mg/dL POC Glucose (mg/dL) (75-99) mg/dL Calcium 8.1 L (8.4-10.2) mg/dL Magnesium 2.4 H (1.6-2.3) mg/dL 05/06/19 Range/Units 12:09 RBC (3.80-5.40) m/uL Hgb (11.4-16.0) gm/dL Hct (34.0-46.0) % MCV (80.0-100.0) fL Chloride (98-107) mmol/L Glucose (74-99) mg/dL POC Glucose (mg/dL) 108 H (75-99) mg/dL Calcium (8.4-10.2) mg/dL Magnesium (1.6-2.3) mg/dL Microbiology - Last 24 Hours (Table) 05/03/19 14:37 Urine Culture - Final Urine,Catheterized Escherichia coli H & H 05/03/19 05/04/19 05/06/19 Range/Units 13:51 07:54 07:38 Hgb 11.7 10.9 L 8.7 L D (11.4-16.0) gm/dL Hct 36.5 33.6 L 27.8 L (34.0-46.0) % Coagulation 05/03/19 Range/Units 12:35 INR 1.1 (<1.2) Result Diagrams: 05/06/19 07:38 05/06/19 07:38 Assessment and Plan Assessment: Assessment: Acute L2 vertebral body burst-type fracture with approximately 5% height loss at the superior endplate Acute low back pain Chronic T10 compression fracture deformity with approximately 40% height loss T12-L1 significant degenerative disc disease with anterior osteophytic spurring L4-5 spondylolisthesis L5-S1 degenerative disc disease Left hydronephrosis and left ureteral stone Urinary tract infection secondary to E. coli Ileus History of CVA/TIA, coronary artery disease, hyperlipidemia, and hypertension (1) Acute low back pain Current Visit: Yes Status: Acute Code(s): M54.5 - LOW BACK PAIN SNOMED Code(s): 393757407 (2) Status post fall Current Visit: Yes Status: Acute Code(s): Z91.81 - HISTORY OF FALLING SNO MED Code(s): 836077870 (3) Burst fracture of lumbar vertebra Current Visit: Yes Status: Acute Code(s): S32.001A - STABLE BURST FRACTURE OF UNSP LUMBAR VERTEBRA, INIT SNOMED Code(s): 336907432 (4) Spondylolisthesis at L4-L5 level Current Visit: Yes Status: Acute Code(s): M43.16 - SPONDYLOLISTHESIS, LUMBAR REGION SNOMED Code(s): 646799990 (5) Degenerative disc disease at L5-S1 level Current Visit: Yes Status: Acute Code(s): M51.36 - OTHER INTERVERTEBRAL DISC DEGENERATION, LUMBAR REGION SNOMED Code(s): 28523432 (6) Hydronephrosis, left Current Visit: Yes Status: Acute Code(s): N13.30 - UNSPECIFIED HYDRONEPHROSIS SNOMED Code(s): 27222981 (7) Left ureteral stone Current Visit: Yes Status: Acute Code(s): N20.1 - CALCULUS OF URETER SNOMED Code(s): 28685343 (8) Ileus Current Visit: Yes Status: Acute Code(s): K56.7 - ILEUS, UNSPECIFIED SNOMED Code(s): 898229228 (9) History of CVA (cerebrovascular accident) Current Visit: Yes Status: Acute Code(s): Z86.73 - PRSNL HX OF TIA (TIA), AND CEREB INFRC W/O RESID DEFICITS SNOMED Code(s): 991996672 (10) History of coronary artery disease Current Visit: Yes Status: Acute Code(s): Z86.79 - PERSONAL HISTORY OF OTHER DISEASES OF THE CIRCULATORY SYSTEM SNOMED Code(s): 666761352 (11) History of hyperlipidemia Current Visit: Yes Status: Acute Code(s): Z86.39 - PERSONAL HISTORY OF ENDO, NUTRITIONAL AND METABOLIC DISEASE SNOMED Code(s): 785638822 (12) History of hypertension Current Visit: Yes Status: Acute Code(s): Z86.79 - PERSONAL HISTORY OF OTHER DISEASES OF THE CIRCULATORY SYSTEM SNOMED Code(s): 852879370 (13) Compression fracture of L2 Current Visit: Yes Status: Acute Code(s): S32.020A - WEDGE COMPRESSION FRACTURE OF SECOND LUMBAR VERTEBRA, INIT SNOMED Code(s): 31092659637491154 (14) UTI (urinary tract infection) Current Visit: Yes Status: Acute Code(s): N39.0 - URINARY TRACT INFECTION, SITE NOT SPECIFIED SNOMED Code(s): 74262573 Plan: Plan: 1. Patient has been discussed in detail with Dr. Mateo Hutchinson. Imaging has been reviewed by Dr. Mateo Hutchinson and myself. After physical examination the patient, reviewing the imaging, and further discussion with the patient, we'll plan to continue conservative treatment at this time regards to her lumbosacral spine. She sustained a fall approximately 1 week ago falling on her buttocks. Review of imaging does show evidence of acute L2 compression fracture deformity. Imaging also shows evidence of a chronic T10 compression fracture deformity. She is experiencing significant low back pain which is exacerbated with movements of her spine, coughing, and sneezing. Her back pain is better controlled while at rest. At this time we'll plan for bracing. A prescription has been written and provided to case management for a Exos LSO brace. Once this brace is delivered and fitted appropriately, patient should wear this brace while sitting upright at greater than 45, during increase activities, during ambulation. Brace is not have to or while lying in bed or while bathing. Following fitting of this brace, patient is clear for discharge from an orthopedic spine standpoint. Following discharge, patient may follow-up with Mian Harrison PA-C or Dr. Mateo Hutchinson at [facility]. 2. Patient will continue be seen examined by multiple other medical providers for her other medical diagnoses including urology, general surgery, and medicine Time with Patient: Greater than 30 (Including obtaining history, physical examination, reviewing of imaging, and dictation.)
[2019-05-06 17:17] LABS: Glucose,Whole Blood 138 mg/dL (75-99)
--- NOTE | 2019-05-06 19:26 | P.PN ---
Progress Note - Text Progress Note Date: 05/06/19 I reviewed Mrs. Haider's computed tomography scan, which reveals evidence of moderate left hydronephrosis due to an 8 mm left proximal ureteral calculus. The calculus is not seen on a plain radiograph. She denies flank pain. I had a lengthy discussion with her, explaining the fact that the calculus is obstructing and causing hydronephrosis. I explained that this over time can compromise her left renal function, and I have thus suggested that the calculus be removed despite the fact she is asymptomatic. Unfortunately, ESWL is not a viable option given that the calculus is not seen on a plain radiograph. I have thus suggested she undergo cystoscopy, left ureteroscopy with Holmium laser lithotripsy and stent placement. The rationale for the procedure was discussed, as were potential risks. These include anesthesia, bleeding, infection, ureteral injury, and inability to successfully remove the calculus. She is aware of the possible need for multiple procedures. I also made her aware of the possible development of a ureteral stricture, given that the calculus has been impacted for an extended time frame. The above will be scheduled electively as an outpatient in 2-3 weeks. Please notify me if I can be of any further assistance during this hospitalization.
[2019-05-06] MEDS: SENNOSIDES-DOCUSATE SODIUM 1 EACH TAB PO SCH (19:57)
[2019-05-06 20:27] LABS: Glucose,Whole Blood 102 mg/dL (75-99)
[2019-05-07] MEDS: HYDROcodone/APAP 5-325MG 1 EACH TAB PO PRN ×3 (04:50→17:09)
[2019-05-07 07:01] LABS: Glucose,Whole Blood 103 mg/dL (75-99)
[2019-05-07] MEDS: CARVEDILOL 3.125 MG TAB PO SCH (07:47)
[2019-05-07] MEDS: HEPARIN SODIUM,PORCINE 5,000 UNIT/ML 1 ML VIAL SQ SCH ×2 (07:47→21:14)
[2019-05-07] MEDS: ATORVASTATIN 80 MG TAB PO SCH (07:47)
[2019-05-07] MEDS: ASPIRIN 81 MG PO SCH (07:47)
[2019-05-07] MEDS: CALCIUM CARB-VIT D 500MG-200UN 1 EACH TAB PO SCH ×3 (07:47→17:10)
[2019-05-07] MEDS: PANTOPRAZOLE 40 MG TABLET PO SCH (07:48)
[2019-05-07] MEDS: MAG HYDROX/AL HYDROX/SIMETH 30 ML CUP PO SCH ×4 (07:48→21:14)
[2019-05-07] MEDS: SENNOSIDES-DOCUSATE SODIUM 1 EACH TAB PO SCH ×2 (07:48→21:14)
[2019-05-07] MEDS: VENLAFAXINE HCL ER 150 MG CAP PO SCH (07:50)
[2019-05-07] MEDS: LIDOCAINE 5% PATCH TOPICAL SCH (08:03)
--- NOTE | 2019-05-07 08:45 | P.PN ---
Progress Note - Text Progress Note Date: 05/07/19 Orthopedic spine: History of present illness: Patient is a very pleasant 78-year-old female who is seen and examined the bedside for follow-up evaluation in regards to intractable back pain. Patient states several days ago, approximately one week, she was at home in her bedroom when she got up to use the restroom in the middle of the night. She states she turned herself around and fell directly on her buttocks. She has been experiencing increased low back pain since that time. She had significant difficulty with ambulation due to her pain and spent most of her time in bed. She states her back pain is exacerbated with bending, twisting, movement of the spine, coughing, sneezing. Her back pain is better controlled while at rest. She was brought to [facility] on 05/03/2019 for further evaluation. She denies any lower extremity radiculopathy or weakness bilaterally. She does continue to have significant difficulty with mobilization. After previously reviewing of imaging, she was diagnosed with acute L2 vertebral body burst-type compression fracture deformity. An Exos LSO brace was prescribed yesterday with a prescription provided to case management. This brace has been delivered and fitted appropriately. Patient states she has not had this brace on much as she has not been out of bed much. During her presentation to the emergency department she was also experiencing generalized weakness and was dehydrated. Patient has also been found to have left hydronephrosis, left ureteral stone, and has been seen by urology. She had also been started on Rocephin for urinary tract infection. Patient states she is urinating without any difficulty. She is afebrile. Patient had a KUB x-ray imaging revealed nonspecific abdomen. Patient has been seen and examined by general surgery for ileus. They're not currently planning for surgical intervention we'll continue conservative treatment. Patient does have a past medical history which includes CVA/TIA, coronary artery disease, hyperlipidemia, and hypertension. Patient denies any previous back injury or known vertebral body fracture. Physical exam: Patient is awake, alert, and oriented 3 Vital signs stable Good chest excursion with deep inspiration and expiration Examination of lumbar spine reveals skin is intact with no abrasions, lacerations, or bruises; no erythema, purulence or signs of infection Plan palpation along the mid to lower lumbar spine Dorsiflexion, plantarflexion, and extensor hallucis longus positive sustained bilaterally Lower extremity strength 5/5 bilaterally Patellar reflex 2+ bilaterally and Achilles reflexes 2+ bilaterally No lower extremity hyperreflexia bilaterally Straight leg test negative bilateral lower extremities No signs or symptoms of DVT; no calf pain No pain with internal and external rotation of the hips bilaterally Neurovascularly intact Pertinent Studies: CT the abdomen and pelvis taken on 05/05/2019 reviewed for orthopedic purposes: Acute L2 vertebral body burst-type fracture with approximately 5% height loss at the superior endplate; Chronic T10 compression fracture deformity with approximately 40% height loss that has had some progression as compared to previous imaging from 10/15/2017; T12-L1 significant degenerative disc disease with anterior osteophytic spurring; L4-5 spondylolisthesis; L5-S1 degenerative disc disease Assessment: Acute L2 vertebral body burst-type fracture with approximately 5% height loss at the superior endplate Acute low back pain Chronic T10 compression fracture deformity with approximately 40% height loss T12-L1 significant degenerative disc disease with anterior osteophytic spurring L4-5 spondylolisthesis L5-S1 degenerative disc disease Left hydronephrosis and left ureteral stone Urinary tract infection secondary to E. coli Ileus History of CVA/TIA, coronary artery disease, hyperlipidemia, and hypertension Plan: 1. Patient has been discussed in detail with Dr. Mateo Hutchinson. Imaging has been reviewed by Dr. Mateo Hutchinson and myself. After physical examination the patient, reviewing the imaging, and further discussion with the patient, we'll plan to continue conservative treatment at this time regards to her lumbosacral spine. She sustained a fall approximately 1 week ago falling on her buttocks. Review of imaging does show evidence of acute L2 compression fracture deformity. Imaging also shows evidence of a chronic T10 compression fracture deformity. She is experiencing significant low back pain which is exacerbated with movements of her spine, coughing, and sneezing. Her back pain is better controlled while at rest. A prescription was written and provided to case management yesterday for an Exos LSO brace. This brace has been delivered and fitted appropriately. Patient should wear this brace while sitting upright at greater than 45, during increase activities, during ambulation. Brace is not have to or while lying in bed or while bathing. Patient is now cleared for discharge from an orthopedic spine standpoint. Following discharge, patient may follow-up with Mian B. Kiba PA-C or Dr. Mateo Hutchinson at [facility]. 2. Patient will continue be seen examined by multiple other medical providers for her other medical diagnoses including urology, general surgery, and medicine
[2019-05-07 08:47] LABS: Basophils # (A) 0.1 k/uL (0-0.2); Basophils % (A) 1 %; Eosinophils # (A) 0.3 k/uL (0-0.7); Eosinophils % (A) 4 %; HCT 29.2 % (34.0-46.0); HGB 9.3 gm/dL (11.4-16.0); Hypochromasia Slight; Lymphocytes # (A) 1.5 k/uL (1.0-4.8); Lymphocytes % (A) 24 %; MCH 31.5 pg (25.0-35.0); MCV 98.5 fL (80.0-100.0); Macrocytosis Slight; Mean Platelet Volume 6.2; Monocytes # (A) 0.3 k/uL (0-1.0); Monocytes % (A) 5 %; Neutrophils # (A) 4.1 k/uL (1.3-7.7); Neutrophils % (A) 64 %; Platelet Count 308 k/uL (150-450); RBC 2.97 m/uL (3.80-5.40); RDW 15.6 % (11.5-15.5); WBC 6.3 k/uL (3.8-10.6)
[2019-05-07 09:05] LABS: African American GFR (CKD) >90 (>60 ml/min/1.73 sqM); Anion Gap 4 mmol/L; Blood Urea Nitrogen 12 mg/dL (7-17); Calcium 8.4 mg/dL (8.4-10.2); Carbon Dioxide 29 mmol/L (22-30); Chloride 108 mmol/L (98-107); Glucose 144 mg/dL (74-99); Potassium 3.8 mmol/L (3.5-5.1); Sodium 141 mmol/L (137-145)
--- NOTE | 2019-05-07 12:12 | P.PN ---
<Celia Boudreaux [place] - Last Filed: 05/07/19 12:08> Subjective Progress Note Date: 05/07/19 CHIEF COMPLAINT: Ileus HISTORY OF PRESENT ILLNESS: Patient examined at the bedside. She denies abdominal pain. Tolerating diet. Denies nausea or vomiting. Passing flatus. Reports having 2 bowel movements. PHYSICAL EXAM: VITAL SIGNS: Reviewed. GENERAL: Well-developed in no acute distress. HEENT: No sclera icterus. Extraocular movements grossly intact. Moist buccal mucosa. Head is atraumatic, normocephalic. ABDOMEN: Soft. Nondistended. Nontender. Positive bowel sounds. NEUROLOGIC: Alert and oriented. Cranial nerves II through XII grossly intact. ASSESSMENT: 1. Ileus, may be secondary to UTI and worsened with use of narcotics PLAN: Continue diet as tolerated Limit narcotics as tolerated to avoid constipation Continue bowel regimen No surgical intervention recommended Nurse practitioner note has been reviewed by physician. Signing provider agrees with the documented findings, assessment, and plan of care. Objective - Vital Signs Vital signs: Vital Signs Temp 97.2 F L 05/07/19 05:00 Pulse 74 05/07/19 05:00 Resp 18 05/07/19 05:00 BP 156/75 05/07/19 05:00 Pulse Ox 96 05/07/19 05:00 Intake & Output 05/06/19 05/07/19 05/07/19 18:59 06:59 18:59 Intake Total 400 775 Output Total 0 Balance 400 775 Intake: Oral 400 775 Output: Urine 0 Post Void Residual 0 Other: Voiding Method Toilet Toilet Toilet # Voids 2 # Bowel Movements 0 - Labs CBC & Chem 7: 05/07/19 08:18 05/07/19 08:18 Labs: Abnormal Lab Results - Last 24 Hours (Table) 05/06/19 05/06/19 05/06/19 Range/Units 12:09 17:14 20:25 RBC (3.80-5.40) m/uL Hgb (11.4-16.0) gm/dL Hct (34.0-46.0) % RDW (11.5-15.5) % Chloride (98-107) mmol/L Glucose (74-99) mg/dL POC Glucose (mg/dL) 108 H 138 H 102 H (75-99) mg/dL 05/07/19 05/07/19 05/07/19 Range/Units 06:47 08:18 08:18 RBC 2.97 L (3.80-5.40) m/uL Hgb 9.3 L (11.4-16.0) gm/dL Hct 29.2 L (34.0-46.0) % RDW 15.6 H (11.5-15.5) % Chloride 108 H (98-107) mmol/L Glucose 144 H (74-99) mg/dL POC Glucose (mg/dL) 103 H (75-99) mg/dL <Cornel Rodriguez - Last Filed: 05/07/19 15:41> Subjective As above. Patient doing well. We'll sign off. Call if needed. Objective - Vital Signs Vital signs: Vital Signs Temp 97.5 F L 05/07/19 12:22 Pulse 72 05/07/19 12:22 Resp 16 05/07/19 12:22 BP 138/80 05/07/19 12:22 Pulse Ox 97 05/07/19 12:22 Intake & Output 05/06/19 05/07/19 05/07/19 18:59 06:59 18:59 Intake Total 400 775 Output Total 0 125 Balance 400 775 -125 Intake: Oral 400 775 Output: Urine 0 125 Post Void Residual 0 0 Other: Voiding Method Toilet Toilet Toilet # Voids 2 1 # Bowel Movements 0 0 - Labs CBC & Chem 7: 05/07/19 08:18 05/07/19 08:18 Labs: Abnormal Lab Results - Last 24 Hours (Table) 05/06/19 05/06/19 05/07/19 Range/Units 17:14 20:25 06:47 RBC (3.80-5.40) m/uL Hgb (11.4-16.0) gm/dL Hct (34.0-46.0) % RDW (11.5-15.5) % Chloride (98-107) mmol/L Glucose (74-99) mg/dL POC Glucose (mg/dL) 138 H 102 H 103 H (75-99) mg/dL 05/07/19 05/07/19 Range/Units 08:18 08:18 RBC 2.97 L (3.80-5.40) m/uL Hgb 9.3 L (11.4-16.0) gm/dL Hct 29.2 L (34.0-46.0) % RDW 15.6 H (11.5-15.5) % Chloride 108 H (98-107) mmol/L Glucose 144 H (74-99) mg/dL POC Glucose (mg/dL) (75-99) mg/dL
--- NOTE | 2019-05-07 16:46 | PN ---
PROGRESS NOTE DATE OF SERVICE: 05/07/2019 This 78-year-old woman who was admitted with a fall while going to the bathroom also had acute low back pain. The patient also had left ureteral and left hydroureter and hydronephrosis as well. The patient has also had some change in mental status also. The patient also had back pain, back brace is being adjusted. The culture showed E coli. The patient is currently on IV Rocephin to which the patient is E coli sensitive. No chest pain. No palpitations. PAST MEDICAL HISTORY: Reviewed. REVIEW OF SYSTEMS: CARDIOVASCULAR SYSTEM: No angina or palpitations. RESPIRATION: As mentioned earlier. GASTROINTESTINAL: As mentioned earlier. mentioned earlier. NERVOUS SYSTEM: Diffusely weak. CURRENT MEDICATIONS: Reviewed and include: 1. Lankin 5 mg p.o. q6h p.r.n. 2. Maalox 30 mL p.o. q.i.d. 3. Aspirin 81 mg daily. 4. Lipitor 80 mg daily. 5. Os-Alo with vitamin D. 6. Coreg 3.125 mg p.o. breakfast. 7. Rocephin 1 g daily. 8. Benadryl 50 mg q.h.s. p.r.n. 9. Lasix 40 mg Monday, Monday, Monday, Monday. 10.Heparin 5000 subcu b.i.d. 11.Lidoderm. 12.Narcan. 13.Protonix. 14.Senokot. 15.Effexor XR. PHYSICAL EXAMINATION: Patient is alert, oriented x3. Pulse 72. Blood pressure 130/80, respiration 16, temperature 97.5, pulse ox 97% on room air. HEENT is conjunctivae normal. NECK: No JVD. CARDIOVASCULAR: S1, S2 muffled. RESPIRATION: Breath sounds diminished in the bases. Bilateral scattered rhonchi and crackles. ABDOMEN: Soft, nontender. No mass palpable. LEGS: No edema. No swelling. NERVOUS SYSTEM: Higher functions as mentioned earlier. Moves all four limbs. No focal deficits. LYMPHATICS: No lymph nodes palpable in the neck, axillae or groin. SKIN: No ulcers. No rashes. No bleeding. JOINTS: No active deforming arthropathy. NERVOUS SYSTEM: Diffusely weak. LABS: WBC 6.2, hemoglobin 10.3, glucose 144. ASSESSMENT: 1. Acute urinary tract infection with resistant E coli, present on admission. 2. Fall and gait dysfunction. 3. Acute L2 compression fracture with progression of T10 compression fracture with severe pain and back pain and gait dysfunction with failure of outpatient treatment. 4. Left ureteral stone with possible left hydroureter hydronephrosis. 5. Generalized weakness, multifactorial. 6. Dehydration. 7. Hyperlipidemia. 8. Hypertension. 9. History of cerebrovascular accident, transient ischemic attack. 10.History of coronary artery disease. 11.Gastroesophageal reflux disease. 12.History of chronic rheumatoid arthritis. 13.History of chronic low back pain, degenerative joint disease. RECOMMENDATIONS AND DISCUSSION: In this 78-year-old woman who presented with multiple complex medical issues, we will monitor the patient closely, continue the current medications, symptomatic treatment. Otherwise, at this time, I would recommend to continue the antibiotics. The UA still appears concentrated. I would recommend repeat UA and we will continue to monitor. Otherwise, continue the antibiotics. PT/OT evaluation. At this time, it seems like the patient will be able to return home with some home care. Guarded prognosis. Further recommendations to follow. MMODL / IJN: [id number] /
[2019-05-08 04:22] LABS: Appearance,Urine Clear (Clear); Bacteria,Urine Rare /hpf; Bilirubin,Urine Negative (Negative); Blood,Urine Negative (Negative); Color,Urine Light Yellow; Glucose,Urine (UA) Negative (Negative); Hyaline Casts,Urine 11 /lpf (0-2); Ketones,Urine Negative (Negative); Leukocyte Esterase,Urine Small (Negative); Mucus,Urine Rare /hpf; Nitrite,Urine Negative (Negative); Protein,Urine Negative (Negative); RBC,Urine 2 /hpf (0-5); Specific Gravity,Urine 1.008 (1.001-1.035); Squamous Epithelial Cell,Urine 3 /hpf (0-4); Urobilinogen,Urine <2.0 mg/dL (<2.0); WBC,Urine 22 /hpf (0-5)
[2019-05-08] MEDS: VENLAFAXINE HCL ER 150 MG CAP PO SCH (08:25)
[2019-05-08] MEDS: ASPIRIN 81 MG PO SCH (08:25)
[2019-05-08] MEDS: CALCIUM CARB-VIT D 500MG-200UN 1 EACH TAB PO SCH ×3 (08:25→17:08)
[2019-05-08] MEDS: SENNOSIDES-DOCUSATE SODIUM 1 EACH TAB PO SCH ×2 (08:25→22:09)
[2019-05-08] MEDS: PANTOPRAZOLE 40 MG TABLET PO SCH (08:25)
[2019-05-08] MEDS: MAG HYDROX/AL HYDROX/SIMETH 30 ML CUP PO SCH ×4 (08:26→22:09)
[2019-05-08] MEDS: ATORVASTATIN 80 MG TAB PO SCH (08:26)
[2019-05-08] MEDS: HEPARIN SODIUM,PORCINE 5,000 UNIT/ML 1 ML VIAL SQ SCH ×2 (08:26→22:09)
[2019-05-08] MEDS: CARVEDILOL 3.125 MG TAB PO SCH (08:26)
[2019-05-08] MEDS: HYDROcodone/APAP 5-325MG 1 EACH TAB PO PRN (08:30)
[2019-05-08] MEDS: FUROSEMIDE 40 MG TAB PO SCH (08:31)
[2019-05-08] MEDS: LIDOCAINE 5% PATCH TOPICAL SCH (08:31)
[2019-05-08 09:35] LABS: Basophils % (A) 1 %; Eosinophils # (A) 0.2 k/uL (0-0.7); Eosinophils % (A) 3 %; HCT 30.5 % (34.0-46.0); HGB 9.5 gm/dL (11.4-16.0); Hypochromasia Slight; Lymphocytes # (A) 1.1 k/uL (1.0-4.8); Lymphocytes % (A) 15 %; MCH 30.4 pg (25.0-35.0); MCHC 31.1 g/dL (31.0-37.0); MCV 97.7 fL (80.0-100.0); Macrocytosis Slight; Mean Platelet Volume 6.9; Monocytes # (A) 0.4 k/uL (0-1.0); Monocytes % (A) 5 %; Neutrophils # (A) 5.5 k/uL (1.3-7.7); Neutrophils % (A) 75 %; Platelet Count 327 k/uL (150-450); RBC 3.12 m/uL (3.80-5.40); RDW 15.7 % (11.5-15.5); WBC 7.3 k/uL (3.8-10.6)
--- NOTE | 2019-05-08 10:36 | CDI ---
Documentation Clarification Form Date: 05/08/2019 10:18:38 AM From: Berta HerreraAlfredAURORA landeros, CCDS Admit Date: 05/05/2019 12:42:00 PM Patient Name: Saira Del Real Visit Number: [id number] Discharge Date: ATTENTION: The Clinical Documentation Specialists (CDI) and [facility] Coding Staff appreciate your assistance in clarifying documentation. Please respond to the clarification below the line at the bottom and electronically sign. The CDI & [facility] Coding staff will review the response and follow-up if needed. Please note: Queries are made part of the Legal Health Record. If you have any questions, please contact the author of this message via ITS. Dr. Angelica Hutchinson: Per the orthopedic consult: "Acute L2 vertebral body burst-type fracture with approximately 5% height loss at the superior endplate. Chronic T10 compression fracture deformity with approximately 40% height loss T12-L1 significant degenerative disc disease with anterior osteophytic spurring L4-5 spondylolisthesis. Burst fracture of lumbar vertebra. Compression fracture of L2." Patient history/risk factors: RA, DJD, Chronic low back pain, CAD w/history of AL, GERD, Hypertension, Hyperlipidemia & history of CVA. Clinical Indicators: Presented with excruciating pain in lower back after a fall in her bathroom >week ago. Not eating, drinking, lives in [facility]. Diagnosed with fractures as above, UTI w/E Coli positive & dehydration. RAD: CT abdomen/pelvis: Acute compression fracture L2 is a change compared to prev exam, progression of T10 compression fracture compared to previous. Treatment: IV fluid rate 100, IV Rocephin, back brace ordered, PT/OT evaluation, narcotics limited. 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 MTDD
--- NOTE | 2019-05-08 16:54 | PN ---
PROGRESS NOTE DATE OF SERVICE: 05/08/2019 This 78-year-old woman who was admitted with acute UTI with resistant E coli is being closely monitored. Patient is also complaining of back pain and gait dysfunction. No chest pain. No palpitations. No fever. Patient is using a brace at this time. PHYSICAL EXAMINATION: Alert and oriented x3. Pulse 81, blood pressure 146/72, respirations 16, temperature 98.4, pulse ox 98% on room air. HEENT: Conjunctivae normal. NECK: No jugular venous distention. CARDIOVASCULAR SYSTEM: S1, S2 muffled. RESPIRATORY SYSTEM: Breath sounds diminished at the bases. No rhonchi. No crackles. ABDOMEN: Soft, non-tender. No mass palpable. LEGS: No edema. No swelling. NERVOUS SYSTEM: Minimal diffuse weakness. LABS: WBC 7.3, hemoglobin 9.5. UA noted. ASSESSMENT: 1. Acute urinary tract infection with resistant Escherichia coli, present on admission. 2. Fall and gait dysfunction. 3. Acute L2 compression fracture with progressive T10 compression fracture with severe pain and back pain with gait dysfunction with failure of outpatient treatment. 4. Left ureteral stone with possible left hydroureter, hydronephrosis. 5. Generalized weakness, multifactorial. 6. Dehydration. 7. Hyperlipidemia. 8. Hypertension. 9. History of cerebrovascular accident, transient ischemic attack. 10.History of coronary artery disease. 11.Gastroesophageal reflux disease. 12.History of chronic rheumatoid arthritis. 13.Chronic low back pain, degenerative joint disease. RECOMMENDATIONS AND DISCUSSION: I recommend to continue current medications, continue with the monitoring, symptomatic treatment. Otherwise at this time I would recommend continuing with the antibiotics. Repeat urine culture. Otherwise, guarded prognosis because of the multiple complex issues. Further recommendations to follow. MMODL / IJN: [id number] /
[2019-05-09] MEDS: CARVEDILOL 3.125 MG TAB PO SCH (08:58)
[2019-05-09] MEDS: ATORVASTATIN 80 MG TAB PO SCH (08:58)
[2019-05-09] MEDS: SENNOSIDES-DOCUSATE SODIUM 1 EACH TAB PO SCH ×2 (08:58→22:36)
[2019-05-09] MEDS: ASPIRIN 81 MG PO SCH (08:58)
[2019-05-09] MEDS: CALCIUM CARB-VIT D 500MG-200UN 1 EACH TAB PO SCH ×3 (08:58→17:24)
[2019-05-09] MEDS: PANTOPRAZOLE 40 MG TABLET PO SCH (08:58)
[2019-05-09] MEDS: MAG HYDROX/AL HYDROX/SIMETH 30 ML CUP PO SCH ×4 (08:59→22:35)
[2019-05-09] MEDS: HEPARIN SODIUM,PORCINE 5,000 UNIT/ML 1 ML VIAL SQ SCH ×2 (08:59→22:36)
[2019-05-09] MEDS: LIDOCAINE 5% PATCH TOPICAL SCH (08:59)
[2019-05-09] MEDS: VENLAFAXINE HCL ER 150 MG CAP PO SCH (09:00)
[2019-05-09 09:38] LABS: Basophils % (A) 1 %; Eosinophils # (A) 0.3 k/uL (0-0.7); Eosinophils % (A) 4 %; HCT 31.7 % (34.0-46.0); HGB 10.1 gm/dL (11.4-16.0); Hypochromasia Slight; Lymphocytes # (A) 1.4 k/uL (1.0-4.8); Lymphocytes % (A) 21 %; MCH 31.3 pg (25.0-35.0); MCHC 31.8 g/dL (31.0-37.0); MCV 98.3 fL (80.0-100.0); Macrocytosis Slight; Monocytes # (A) 0.4 k/uL (0-1.0); Monocytes % (A) 6 %; Neutrophils # (A) 4.4 k/uL (1.3-7.7); Neutrophils % (A) 67 %; Platelet Count 377 k/uL (150-450); RBC 3.22 m/uL (3.80-5.40); RDW 15.7 % (11.5-15.5); WBC 6.5 k/uL (3.8-10.6)
[2019-05-09] MEDS: HYDROcodone/APAP 5-325MG 1 EACH TAB PO PRN ×2 (13:40→22:38)
--- NOTE | 2019-05-09 17:04 | PN ---
PROGRESS NOTE DATE OF SERVICE: 05/09/2019 This 78-year-old woman was admitted with acute UTI had resistant E coli grown from the culture. The patient on IV antibiotics. No chest pain. No palpitation. The patient has significant pain and had a back brace also. No chest pain. No palpitation. EXAM: Alert and oriented x2. Pulse 75. Blood pressure 127/59, respiration 18, temperature 98.7, pulse ox 94% on room air. HEENT: Conjunctivae normal. NECK: No JVD. CARDIOVASCULAR: S1, S2 muffled. RESPIRATION: Breath sounds diminished in the bases. Scattered rhonchi. ABDOMEN is soft, nontender. NERVOUS SYSTEM: No focal deficits. LABS: WBC 6.2, hemoglobin 10.1. UA noted. ASSESSMENT: 1. Acute urinary tract infection with resistant E coli present on admission. 2. Fall and gait dysfunction. 3. Acute L2 compression fracture with proximal T10 compression fracture with severe pain at the back with gait dysfunction with failure of outpatient treatment. 4. Left ureteric stone with possible left hydroureter, hydronephrosis, generalized weakness multifactorial. 5. Dehydration. 6. Hypertension. 7. Hyperlipidemia. 8. History of cerebrovascular accident, transient ischemic attack. 9. History of coronary artery disease. 10.Gastroesophageal reflux disease. 11.History of chronic rheumatoid arthritis. 12.Chronic low back pain. Degenerative joint disease. RECOMMENDATIONS AND DISCUSSION: In this 79-year-old woman who presented with multiple medical problems, we will monitor the patient closely, continue the current medications, symptomatic treatment. Continue the antibiotics. PT/OT evaluation. I would also recommend evaluation for possible ECF rehab because of concerns of patient's safety. Continue to monitor. Further recommendations to follow. MMODL / IJN: [id number] /
[2019-05-09 23:22] VITALS: TEMP 98.1
[2019-05-10 06:33] VITALS: RESP 18
[2019-05-10] MEDS: HYDROcodone/APAP 5-325MG 1 EACH TAB PO PRN ×2 (08:58→13:48)
[2019-05-10] MEDS: MAG HYDROX/AL HYDROX/SIMETH 30 ML CUP PO SCH ×2 (08:58→12:08)
[2019-05-10] MEDS: CARVEDILOL 3.125 MG TAB PO SCH (08:59)
[2019-05-10] MEDS: ATORVASTATIN 80 MG TAB PO SCH (08:59)
[2019-05-10] MEDS: CALCIUM CARB-VIT D 500MG-200UN 1 EACH TAB PO SCH ×2 (08:59→12:08)
[2019-05-10] MEDS: PANTOPRAZOLE 40 MG TABLET PO SCH (08:59)
[2019-05-10] MEDS: SENNOSIDES-DOCUSATE SODIUM 1 EACH TAB PO SCH (08:59)
[2019-05-10] MEDS: HEPARIN SODIUM,PORCINE 5,000 UNIT/ML 1 ML VIAL SQ SCH (08:59)
[2019-05-10] MEDS: ASPIRIN 81 MG PO SCH (08:59)
[2019-05-10] MEDS: VENLAFAXINE HCL ER 150 MG CAP PO SCH (08:59)
[2019-05-10] MEDS: LIDOCAINE 5% PATCH TOPICAL SCH (09:00)
[2019-05-10] MEDS: FUROSEMIDE 40 MG TAB PO SCH (09:02)
[2019-05-10 09:33] VITALS: BMI 32.9
[2019-05-10 09:34] LABS: Basophils % (A) 1 %; Eosinophils # (A) 0.2 k/uL (0-0.7); Eosinophils % (A) 3 %; HCT 28.2 % (34.0-46.0); HGB 9.1 gm/dL (11.4-16.0); Hypochromasia Slight; Lymphocytes # (A) 1.2 k/uL (1.0-4.8); Lymphocytes % (A) 20 %; MCH 31.1 pg (25.0-35.0); MCHC 32.1 g/dL (31.0-37.0); MCV 96.8 fL (80.0-100.0); Mean Platelet Volume 6.2; Monocytes # (A) 0.4 k/uL (0-1.0); Monocytes % (A) 7 %; Neutrophils % (A) 67 %; Platelet Count 330 k/uL (150-450); RBC 2.92 m/uL (3.80-5.40); RDW 15.6 % (11.5-15.5)
--- NOTE | 2019-05-10 11:31 | P.DS ---
Providers Date of admission: 05/05/19 12:42 Attending physician: Mazin Jefferson MD Consults: 05/05/19 11:57 Consult Physician Routine Consulting Provider: Joshua Mcbride Consult Reason/Comments: left sided hydronephrosis Do you want consulting provider notified?: Yes 05/06/19 07:29 Consult Physician Routine Consulting Provider: Vivek Cleveland Consult Reason/Comments: new compression fractures L2/T10 Do you want consulting provider notified?: Yes Primary care physician: Indira Rodriguez Hospital Course: Final diagnosis Acute UTI with resistant E. coli present on admission Fall and gait dysfunction Acute L2 compression fracture with the proximal T10 compression fracture with severe pain of the back with the gait dysfunction with the failure of outpatient treatment. Left ureteric stone with a possible left hydroureter hydronephrosis generalized weakness multifactorial. Dehydration. Hypertension Hyperlipidemia History of CVA TIA History of CAD GERD History of chronic rheumatoid arthritis Chronic low back pain DJD Full code Discharge disposition The patient is being discharged in a stable condition with guarded prognosis to [facility]. Time taken [address] Pederson will follow-up in the patient in [facility]. History of present illness This 79-year-old woman with a past medical history of multiple medical problems as mentioned earlier being followed by Dr. Indira dietrich in the outpatient setting was admitted with severe back pain the patient had compression fractures. Orthopedic evaluated the patient. Conservative plan of management was recommended. Patient was given back brace. Patient is ambulating with a back brace at this time. Patient also had a persistent UTI. Treated with IV Rocephin. Patient improved significantly. Patient be discharged in a stable condition with guarded prognosis with further plans to follow up with Dr. Pederson in the [facility] at this time. Recommended follow-up with Dr. Indira dietrich after discharge from [facility]. Please refer to the medication reconciliation sheet for list of medications. Plan - Discharge Summary New Discharge Prescriptions: New Cefuroxime Axetil [Ceftin] 500 mg PO BID 3 Days #6 tab Lidocaine 5% Patch [Lidoderm 5% Patch] 1 patch TOPICAL DAILY patch Mag Hydrox/Al Hydrox/Simeth [Maalox] 30 ml PO QID PRN cup PRN Reason: Gi Upset HYDROcodone/APAP 5-325MG [[place]wood 5-325] 1 each PO Q6HR PRN #10 tab PRN Reason: Pain Calcium Carb-Vit D 500Mg-200Un [Oscal 500+D] 1 each PO TID-W/MEALS tab Sennosides-Docusate Sodium [Senokot-S] 2 each PO BID tab Continue Omeprazole [PriLOSEC] 20 mg PO DAILY Atorvastatin [Lipitor] 80 mg PO DAILY #30 tab diphenhydrAMINE [Benadryl] 50 mg PO HS PRN PRN Reason: Insomnia Carvedilol [Coreg] 3.125 mg PO DAILY Furosemide [Lasix] 40 mg PO MOWEFRSA Aspirin EC [Ecotrin Low Dose] 81 mg PO DAILY Venlafaxine HCl ER [Effexor XR] 150 mg PO DAILY #10 cap Discharge Medication List Omeprazole [PriLOSEC] 20 mg PO DAILY 02/05/15 [History] Atorvastatin [Lipitor] 80 mg PO DAILY #30 tab 02/08/15 [Rx] Carvedilol [Coreg] 3.125 mg PO DAILY 10/28/16 [History] diphenhydrAMINE [Benadryl] 50 mg PO HS PRN 10/28/16 [History] Aspirin EC [Ecotrin Low Dose] 81 mg PO DAILY 05/03/19 [History] Furosemide [Lasix] 40 mg PO MOWEFRSA 05/03/19 [History] Calcium Carb-Vit D 500Mg-200Un [Oscal 500+D] 1 each PO TID-W/MEALS tab 05/10/19 [Rx] Cefuroxime Axetil [Ceftin] 500 mg PO BID 3 Days #6 tab 05/10/19 [Rx] HYDROcodone/APAP 5-325MG [[place]wood 5-325] 1 each PO Q6HR PRN #10 tab 05/10/19 [Rx] Lidocaine 5% Patch [Lidoderm 5% Patch] 1 patch TOPICAL DAILY patch 05/10/19 [Rx] Mag Hydrox/Al Hydrox/Simeth [Maalox] 30 ml PO QID PRN cup 05/10/19 [Rx] Sennosides-Docusate Sodium [Senokot-S] 2 each PO BID tab 05/10/19 [Rx] Venlafaxine HCl ER [Effexor XR] 150 mg PO DAILY #10 cap 05/10/19 [Rx] Follow up Appointment(s)/Referral(s): Mian Harrison PAC [PHYSICIAN [employer] P[employer] MACHINE SETTER] - 2 Weeks (Patient may follow-up with Mian Harrison PA-C or Dr. Mateo Hutchinson at [facility] in 2-3 weeks following discharge. ) [facility], [REFERRING] - Corey &Brianne [NON-STAFF] - (supplied Back Brace) Indira Rodriguez MD [Primary Care Provider] - 2 Weeks () Activity/Diet/Wound Care/Special Instructions: 1. Patient may wear Exos LSO brace for comfort and support while sitting upright at greater than 45, while working with therapy, and while ambulating; patient does not have to wear the brace while lying in bed or bathing 2. Patient should avoid excessive bending, twisting, and lifting; no lifting greater than 10 pounds
[2019-05-10 13:42] VITALS: BP 150/89; PULSE 72
== END 2019-05-10 14:28 | DRG 690 ==
LOC: EC 11:21 → 4MS4W 15:45 → OBSVTOIN 05-05 12:42 → 4MS4W 05-05 13:00
PROVIDERS: ADMIT Internal Medicine; ATTEND Internal Medicine
DX: N13.6 Pyonephrosis (principal); M80.08XA Age-related osteoporosis with current pathological fracture, vertebra(e), initial encounter for fracture; K56.7 Ileus, unspecified; Z16.24 Resistance to multiple antibiotics; E86.0 Dehydration; M06.9 Rheumatoid arthritis, unspecified; I45.10 Unspecified right bundle-branch block; B96.20 Unspecified Escherichia coli [E. coli] as the cause of diseases classified elsewhere; G89.11 Acute pain due to trauma; G89.29 Other chronic pain; T40.605A Adverse effect of unspecified narcotics, initial encounter; M51.34 Other intervertebral disc degeneration, thoracic region; M51.36 Other intervertebral disc degeneration, lumbar region; M51.37 Other intervertebral disc degeneration, lumbosacral region; M43.16 Spondylolisthesis, lumbar region; E78.5 Hyperlipidemia, unspecified; F32.9 Major depressive disorder, single episode, unspecified; K21.9 Gastro-esophageal reflux disease without esophagitis; I10 Essential (primary) hypertension; M84.48XS Pathological fracture, other site, sequela; I25.2 Old myocardial infarction; I25.10 Atherosclerotic heart disease of native coronary artery without angina pectoris; R26.9 Unspecified abnormalities of gait and mobility; Z79.82 Long term (current) use of aspirin; Z79.899 Other long term (current) drug therapy; Z91.81 History of falling; Z86.73 Personal history of transient ischemic attack (TIA), and cerebral infarction without residual deficits; Z98.51 Tubal ligation status; Z82.49 Family history of ischemic heart disease and other diseases of the circulatory system; Z83.49 Family history of other endocrine, nutritional and metabolic diseases; W01.0XXA Fall on same level from slipping, tripping and stumbling without subsequent striking against object, initial encounter; Y92.002 Bathroom of unspecified non-institutional (private) residence as the place of occurrence of the external cause
CPT/HCPCS: 36415; 51701; 70450; 71046; 74018; 74176; 76770; 80048; 80053; 81001; 82550; 83605; 83735; 84100; 84439; 84443; 84481; 84484; 85025; 85610; 85730; 87077; 87086; 87186; 93005; 94760; 96360; 96361; 99285

== ENCOUNTER → 2021-04-16 | Outpatient (CLI) | payer MEDICARE ==
--- NOTE | 2021-04-16 17:43 | ECHOF ---
Referral Reason:CAD MEASUREMENTS -------- HEIGHT: 129.5 cm WEIGHT: 90.7 kg BP: IVSd: 1.4 cm (0.6 - 1.1) LVIDd: 3.2 cm (3.9 - 5.3) LVPWd: 1.2 cm (0.6 - 1.1) IVSs: 1.9 cm LVIDs: 2.6 cm LVPWs: 1.7 cm LAESV Index (A-L): 12.82 ml/m Ao Diam: 2.7 cm (2.0 - 3.7) AV Cusp: 1.8 cm (1.5 - 2.6) LA Diam: 2.1 cm (2.7 - 3.8) MV EXCURSION: 12.495 mm (> 18.000) MV EF SLOPE: 31 mm/s (70 - 150) EPSS: 1.2 cm MV E Tomas: 0.55 m/s MV DecT: 157 ms MV A Tomas: 0.87 m/s MV E/A Ratio: 0.63 AR PHT: 225 ms RAP: 5.00 mmHg RVSP: 13.69 mmHg FINDINGS -------- This was a technically good study. The left ventricular size is normal. There is moderate concentric left ventricular hypertrophy. O verall left ventricular systolic function is moderately impaired with, an EF between 35 - 40 %. Nor mal LAP Grade 1 Diastolic Dysfunction. Basal inferior LV wall motion is hypokinetic. Basal infer oseptal LV wall motion is hypokinetic. Mid inferoseptal LV wall motion is hypokinetic. Basal in ferolateral hypokinesis. The right ventricle is normal in size. The left atrial size is normal. Normal LA size by volume 22+/-6 ml/m2. The right atrial size is normal. Aortic valve is trileaflet and is mildly thickened. Trace amount of aortic regurgitation. The mitral valve is normal. The mitral valve leaflets are mildly thickened. There is trace mitral regurgitation. The tricuspid valve appears structurally normal. Mild tricuspid regurgitation present. Right vent ricular systolic pressure is normal at < 35 mmHg. There is no pulmonic regurgitation present. The aortic root size is normal. Normal inferior vena cava with normal inspiratory collapse consistent with estimated right atrial pre ssure of 5 mmHg. Echo free space indicative of a pericardial fat pad. There is no pericardial effusion. CONCLUSIONS -------- 1. The left ventricular size is normal. 2. There is moderate concentric left ventricular hypertrophy. 3. Overall left ventricular systolic function is moderately impaired with, an EF between 35 - 40 %. 4. Normal LAP Grade 1 Diastolic Dysfunction. 5. Basal inferior LV wall motion is hypokinetic. 6. Basal inferoseptal LV wall motion is hypokinetic. 7. Mid inferoseptal LV wall motion is hypokinetic. 8. Basal inferolateral hypokinesis. 9. Aortic valve is trileaflet and is mildly thickened. 10. Trace amount of aortic regurgitation. 11. The mitral valve leaflets are mildly thickened. 12. There is trace mitral regurgitation. 13. Mild tricuspid regurgitation present. 14. There is no pericardial effusion. MANAGER MATERIAL: Desi Figueroa RDCS
== END | disposition home or self-care (01) ==
LOC: RADECHMAIN 15:52
PROVIDERS: ATTEND Internal Medicine Cardiovascular Disease
DX: I25.10 Atherosclerotic heart disease of native coronary artery without angina pectoris (principal); I51.7 Cardiomegaly; I34.0 Nonrheumatic mitral (valve) insufficiency
CPT/HCPCS: 93306

== ENCOUNTER 2024-06-15 16:16 | Emergency (ER) | payer MEDICARE ==
--- NOTE | 2024-06-15 16:23 | ED ---
Fall HPI - General Stated Complaint: Fall-Head injury Time Seen by Provider: 06/15/24 16:18 Source: RN notes reviewed, old records reviewed Mode of arrival: EMS Limitations: no limitations - History of Present Illness Initial Comments: This is an 84-year-old female presenting after fall during transfer. Fall was mechanical in nature she missed her footing and transferring from bed to her motorized scooter. Patient was unable to get off the ground complaining of left hip pain brought to the ER by EMS was called by staff from [facility]. Patient states she has been feeling well no difference in how she was feeling today to yesterday. No recent illnesses or complaints, patient denies head injury, patient denies blood thinner MD Complaint: fall -: minutes(s) Fall From: standing, wheelchair When Fall Occurred: 1 hour SOCK MENDER Fall Witnessed: yes, by living facility staff Place Fall Occurred: home Loss of Consciousness: none Prolonged Down Time?: no Symptoms Prior to Fall: none Location - Extremities: Left: Thigh Severity: moderate Quality: sharp Context: tripped/slipped Associated Symptoms: denies - Related Data Home Medications Medication Instructions Recorded Confirmed Aspirin EC [Ecotrin Low Dose] 81 mg PO DAILY 05/03/19 06/15/24 Furosemide [Lasix] 40 mg PO MOWESA 05/03/19 06/15/24 Allergies Allergy/AdvReac Type Severity Reaction Status Date / Time No Known Allergies Allergy Verified 06/15/24 17:55 Review of Systems ROS Statement: Those systems with pertinent positive or pertinent negative responses have been documented in the HPI. ROS Other: All systems not noted in ROS Statement are negative. Past Medical History Past Medical History: Coronary Artery Disease (CAD), CVA/TIA, GERD/Reflux, Hyperlipidemia, Hypertension, Myocardial Infarction (ME), Rheumatoid Arthritis (RA) Additional Past Medical History / Comment(s): CVA 2011 Last Myocardial Infarction Date:: 01/2015 History of Any Multi-Drug Resistant Organisms: None Reported Past Surgical History: Heart Catheterization With Stent, Tubal Ligation Past Anesthesia/Blood Transfusion Reactions: No Reported Reaction Date of Last Stent Placement:: 01/2015 Past Alcohol Use History: Rare Past Drug Use History: None Reported - Past Family History Father Family Medical History: Myocardial Infarction (ME) Additional Family Medical History / Comment(s): passed at 60 years old. Mother Family Medical History: Congestive Heart Failure (CHF) Additional Family Medical History / Comment(s): at 99 years old. Brother(s) Family Medical History: Hyperlipidemia, Hypertension, Myocardial Infarction (ME) Additional Family Medical History / Comment(s): still living. General Exam General appearance: alert, in no apparent distress Head exam: Present: atraumatic, normocephalic, normal inspection Eye exam: Present: normal appearance, PERRL, EOMI. Absent: scleral icterus, conjunctival injection, periorbital swelling ENT exam: Present: normal exam, mucous membranes moist Neck exam: Present: normal inspection. Absent: tenderness, meningismus, lymphadenopathy Respiratory exam: Present: normal lung sounds bilaterally. Absent: respiratory distress, wheezes, rales, rhonchi, stridor Cardiovascular Exam: Present: regular rate, normal rhythm, normal heart sounds. Absent: systolic murmur, diastolic murmur, rubs, gallop, clicks GI/Abdominal exam: Present: soft, normal bowel sounds. Absent: distended, tenderness, guarding, rebound, rigid Extremities exam: Present: normal inspection, full ROM, normal capillary refill. Absent: tenderness, pedal edema, joint swelling, calf tenderness Back exam: Present: normal inspection Neurological exam: Present: alert, oriented X3, CN II-XII intact Psychiatric exam: Present: normal affect, normal mood Skin exam: Present: warm, dry, intact, normal color. Absent: rash Course Vital Signs 06/15/24 16:23 Temperature 97.8 F Pulse Rate 63 Respiratory 20 Rate Blood Pressure 134/67 O2 Sat by Pulse 98 Oximetry - Reevaluation(s) Reevaluation #1: 06/15/24 16:22 Medical records reviewed Reevaluation #2: 06/15/24 18:07 Patient now requiring anything for pain here in the ER Reevaluation #3: 06/15/24 18:07 Patient informed of results and questions answered Reevaluation #4: Was pt. sent in by a medical professional or institution (, PA, HEEL CURVER, urgent care, hospital, or alf...) When possible be specific @ -no Did you speak to anyone other than the patient for history (EMS, parent, family, police, friend...)? What history was obtained from this source @ -no Did you review nursing and triage notes (agree or disagree)? Why? @ -agree Are old charts reviewed (outside hosp., previous admission, EMS record, old EKG, old radiological studies, urgent care reports/EKG's, alf records)? Report findings @ -yes Differential Diagnosis (chest pain, altered mental status, abdominal pain women, abdominal pain men, vaginal bleeding, weakness, fever, dyspnea, syncope, headache, dizziness, GI bleed, back pain, seizure, CVA, palpatations, mental health, musculoskeletal)? @ -prior EKG interpreted by me (3pts min.). @ -yes X-rays interpreted by me (1pt min.). @ -yes negative for acute disease CT interpreted by me (1pt min.). @ -no U/S interpreted by me (1pt. min.). @ -no What testing was considered but not performed or refused? (CT, X-rays, U/S, labs)? Why? @ -none What meds were considered but not given or refused? Why? @ -none Did you discuss the management of the patient with other professionals (professionals i.e. , PA, HEEL CURVER, lab, RT, psych nurse, licensed master social worker, local company intermodal truck driver, teacher, community reinvestment act officer, special education case manager)? Give summary @ -no Was smoking cessation discussed for >3mins.? @ -no Was critical care preformed (if so, how long)? @ -no Were there social determinants of health that impacted care today? How? (Homelessness, low income, unemployed, alcoholism, drug addiction, transportation, low edu. Level, literacy, decrease access to med. care, [facility], rehab)? @ -none Was there de-escalation of care discussed even if they declined (Discuss DNR or withdrawal of care, Hospice)? DNR status @ -no What co-morbidities impacted this encounter? (DM, HTN, Smoking, COPD, CAD, Cancer, CVA, ARF, Chemo, Hep., AIDS, mental health diagnosis, sleep apnea, morbid obesity)? @ -none Was patient admitted / discharged? Hospital course, mention meds given and route, prescriptions, significant lab abnormalities, going to OR and other pertinent info. @ - Undiagnosed new problem with uncertain prognosis? @ -no Drug Therapy requiring intensive monitoring for toxicity (Heparin, Nitro, Insulin, Cardizem)? @ -no Were any procedures done? @ -no Diagnosis/symptom? @ - Acute, or Chronic, or Acute on Chronic? @ -Acute Uncomplicated (without systemic symptoms) or Complicated (systemic symptoms)? @ -Complicated Side effects of treatment? @ -no Exacerbation, Progression, or Severe Exacerbation? @ -exacerbation Poses a threat to life or bodily function? How? (Chest pain, USA, ME, pneumonia, PE, COPD, DKA, ARF, appy, cholecystitis, CVA, Diverticulitis, Homicidal, Suicidal, threat to staff... and all critical care pts) @ -yes Reevaluation #5: Differential Weakness: Hypoglycemia, shock, sepsis, hyponatremia, anemia, infection, ME, ETOH, adverse medicine reaction, overdose, stroke, this is not meant to be an all-inclusive list. Medical Decision Making - Medical Decision Making 84 female to ER with mechanical fall no acute traumatic injury noted patient does not want to be here in the emergency room and feels well and will be discharged - Radiology Data Radiology results: report reviewed (X-ray pelvis and left hip negative for acute disease), image reviewed Disposition Clinical Impression: Fall, Right hip pain Disposition: HOME SELF-CARE Condition: Fair Instructions (If sedation given, give patient instructions): Fall Prevention for Older Adults (ED), Hip Contusion (ED) Is patient prescribed a controlled substance at d/c from ED?: No Referrals: Indira Rodriguez MD [Primary Care Provider] - 1-2 days Time of Disposition: 18:00
--- NOTE | 2024-06-15 16:54 | XR ---
EXAMINATION TYPE: XR Hip LT and AP Pelvis DATE OF EXAM: 06/15/2024 4:44 PM COMPARISON: Previous CT abdomen/pelvis 05/05/2019. CLINICAL INDICATION: Female, 84 years old with history of pain; PHH TECHNIQUE: XR Hip LT and AP Pelvis; hip was examined in the frontal and lateral projections and a AP pelvis. FINDINGS: No acute fracture or dislocation. Osseous structures demineralized. Severe degenerative art hritis of the right hip partially visualized. Mild to moderate left hip degenerative osteoarthritis. Vascular calcifications noted. IMPRESSION: No acute fracture or dislocation of the left hip. [facility], , 06/15/2024 4:52 PM
[2024-06-15 18:26] VITALS: BP 163/85; PULSE 92; RESP 18; TEMP 98.2
== END 2024-06-15 18:22 | disposition home or self-care (01) ==
LOC: EC 16:16
DX: M25.551 Pain in right hip (principal); W01.0XXA Fall on same level from slipping, tripping and stumbling without subsequent striking against object, initial encounter
CPT/HCPCS: 73502; 99283

== ENCOUNTER 2024-12-16 16:56 | Inpatient (IN) | payer MEDICARE ==
[2024-12-16 17:30] LABS: Basophils # (A) 0.04 10*3/uL (0.00-0.10); Basophils % (A) 0.4 %; Eosinophils # (A) 0.01 10*3/uL (0.04-0.35); Eosinophils % (A) 0.1 %; HGB 13.8 g/dL (12.0-15.0); Lymphocytes # (A) 1.13 10*3/uL (0.90-5.00); Lymphocytes % (A) 11.8 %; MCH 36.3 pg (27.0-32.0); MCHC 35.4 g/dL (32.0-37.0); MCV 102.6 fL (80.0-97.0); Mean Platelet Volume 9.3 fL (9.5-12.2); Monocytes # (A) 0.85 10*3/uL (0.20-1.00); Monocytes % (A) 8.9 %; Neutrophils # (A) 7.45 10*3/uL (1.80-7.70); Neutrophils % (A) 78.2 %; Platelet Count 203 10*3/uL (140-440); RDW 15.8 % (11.5-14.5); WBC 9.54 10*3/uL (4.50-10.00)
[2024-12-16 17:40] LABS: Partial Thromboplastin Time 23.9 sec (22.0-30.0); Prothrombin Time 10.8 sec (10.0-12.5)
[2024-12-16] MEDS: SODIUM CHLORIDE 0.9% 500 ML 500 ML IV ONE (17:42)
[2024-12-16 17:44] LABS: ALT 17 U/L (4-34); AST 33 U/L (14-36); African American GFR (CKD) >90 (>60 ml/min/1.73 sqM); Albumin 4.1 g/dL (3.5-5.0); Alkaline Phosphatase 69 U/L (38-126); Anion Gap 8 mmol/L; Blood Urea Nitrogen 18 mg/dL (7-17); Calcium 9.3 mg/dL (8.4-10.2); Carbon Dioxide 22 mmol/L (22-30); Chloride 107 mmol/L (98-107); Glucose 101 mg/dL (74-99); Magnesium 2.1 mg/dL (1.6-2.3); Non-African American GFR(CKD) 84 (>60 ml/min/1.73 sqM); Potassium 3.7 mmol/L (3.5-5.1); Sodium 137 mmol/L (137-145); Total Bilirubin 0.8 mg/dL (0.2-1.3); Total Protein 6.7 g/dL (6.3-8.2)
[2024-12-16 18:07] LABS: Influenza A Not Detected (Not Detectd); Influenza B Not Detected (Not Detectd); RSV Not Detected (Not Detectd)
--- NOTE | 2024-12-16 18:20 | XR ---
EXAMINATION TYPE: XR chest 2V DATE OF EXAM: 12/16/2024 5:26 PM COMPARISON: 05/03/2019 CLINICAL INDICATION: Female, 84 years old with history of Weakness, TECHNIQUE: XR chest 2V view(s) obtained. FINDINGS: The heart size is normal. The pulmonary vasculature is normal. The lungs are clear. There is an old compression deformity lower thoracic spine IMPRESSION: 1. No acute pulmonary process. [facility], , 12/16/2024 6:18 PM
[2024-12-16 19:00] LABS: Appearance,Urine Clear (Clear); Bilirubin,Urine Negative (Negative); Blood,Urine Negative (Negative); Color,Urine Colorless; Glucose,Urine (UA) Negative (Negative); Ketones,Urine Trace (Negative); Leukocyte Esterase,Urine Negative (Negative); Nitrite,Urine Negative (Negative); PH, Urine 5.5 (5.0-8.0); Protein,Urine Negative (Negative); Specific Gravity,Urine 1.011 (1.001-1.035); Urobilinogen,Urine <2.0 mg/dL (<2.0)
--- NOTE | 2024-12-16 19:59 | CT ---
EXAMINATION TYPE: CT brain wo con DATE OF EXAM: 12/16/2024 7:45 PM COMPARISON: 05/03/2019 CLINICAL INDICATION: Female, 84 years old with history of confusion, Confusion, decreased appetite x 4 days, pain TECHNIQUE: CT of the brain is performed utilizing 3 mm thick sections through the posterior fossa and 3 mm thick sections through the remaining calvarium. Study is performed within 24 hours of arrival to the hospital. Contrast used: mL of , (none if empty) CT DLP: 1168.6 mGycm, Automated exposure control for dose reduction was used. FINDINGS: No abnormal hyperdensity is present to suggest an acute intracranial hemorrhage. No mass lesion is evident. No acute infarcts are evident. Confluent periventricular white matter hypodensity is present likely on the basis of chronic white matter ischemic changes. Ventricles and sulci are prominent for the patient age. Paranasal sinuses and mastoid air cells within the [id number] are clear. IMPRESSIONS: 1. No acute intracranial process. Follow-up MRI can be performed as clinically indicated. 2. Confluent white matter ischemic-type changes with atrophy [facility], , 12/16/2024 7:57 PM
--- NOTE | 2024-12-16 20:19 | ED ---
General Adult HPI - General Chief complaint: Weakness Stated complaint: Failure to Thrive Time Seen by Provider: 12/16/24 17:00 Source: patient, EMS, RN notes reviewed, old records reviewed Mode of arrival: EMS Limitations: no limitations - History of Present Illness Initial comments: Patient is an 84-year-old female presents from her nursing facility of concern for failure to thrive. Has not been eating for the last 4 days. Patient may elias ve some mild confusion that is worse than baseline. She does have a history of dementia. She does states she has had intermittent abdominal pain for a few days. Nonfocal abdominal pain. Currently has no pain. Has no other acute complaints at this time. Patient's son did present bedside and states that she does seem somewhat more confused than normal. Has a history of prior CVA in 2011, CAD, hypertension, hyperlipidemia. She denies chest pain or current abdominal pain. Denies nausea or vomiting. States she just does not feel hungry. Denies fevers or chills. Presents for further evaluation at this time. - Related Data Home Medications Medication Instructions Recorded Confirmed Aspirin EC [Ecotrin Low Dose] 81 mg PO DAILY@0800 05/03/19 12/16/24 Furosemide [Lasix] 40 mg PO MOWESA@0800 05/03/19 12/16/24 Acetaminophen [Tylenol Arthritis] 650 mg PO Q6H PRN 12/16/24 12/16/24 Cholecalciferol (Vitamin D3) 50 mcg PO DAILY@0800 12/16/24 12/16/24 [Vitamin D3 (50 Mcg = 2000 Iu)] Nitroglycerin Sl Tabs [Nitrostat] 0.4 mg SL Q5M PRN 12/16/24 12/16/24 Sacubitril/Valsartan [Entresto 24 0.5 tab PO BID@08,199912/16/24 12/16/24 mg-26 mg Tablet] Vit C/E/Zn/Coppr/Lutein/Zeaxan 1 cap PO DAILY@79912/16/24 12/16/24 [Preservision Areds 2 Softgel] Vitamin B Complex 1 cap PO DAILY@0800 12/16/24 12/16/24 Allergies Allergy/AdvReac Type Severity Reaction Status Date / Time No Known Allergies Allergy Verified 12/16/24 19:01 Review of Systems ROS Statement: Those systems with pertinent positive or pertinent negative responses have been documented in the HPI. Review of Systems: CONST: Denies fever EYES: Denies blurry vision ENT: Denies nasal congestion C/V: Denies Chest pain RESP: Denies shortness of breath GI: Denies abdominal pain : Denies dysuria SKIN: Denies rash. MSK: Denies joint pain. NEURO: Denies headache ROS Other: All systems not noted in ROS Statement are negative. Past Medical History Past Medical History: Coronary Artery Disease (CAD), CVA/TIA, GERD/Reflux, Hyperlipidemia, Hypertension, Myocardial Infarction ([place]), Rheumatoid Arthritis (RA) Additional Past Medical History / Comment(s): CVA 2011 Last Myocardial Infarction Date:: 01/2015 History of Any Multi-Drug Resistant Organisms: None Reported Past Surgical History: Heart Catheterization With Stent, Tubal Ligation Past Anesthesia/Blood Transfusion Reactions: No Reported Reaction Date of Last Stent Placement:: 01/2015 Past Psychological History: Depression Smoking Status: Former smoker Past Alcohol Use History: Rare Past Drug Use History: None Reported - Past Family History Father Family Medical History: Myocardial Infarction ([place]) Additional Family Medical History / Comment(s): passed at 60 years old. Mother Family Medical History: Congestive Heart Failure (CHF) Additional Family Medical History / Comment(s): at 99 years old. Brother(s) Family Medical History: Hyperlipidemia, Hypertension, Myocardial Infarction ([place]) Additional Family Medical History / Comment(s): still living. General Exam - General Exam Comments Initial Comments: General: Appears in no acute distress. HEAD: Normal with no signs of head trauma. EYES: PERRLA, EOMI, conjunctiva normal, no discharge. Pupils are 3 mm and equal bilaterally. ENT: Hearing grossly intact, normal oropharynx. Dry mucous membranes RESPIRATORY: Clear breath sounds bilaterally. No wheezes, rales, or rhonchi. C/V: Regular rate and rhythm. S1 and S2 auscultated, no edema, peripheral pulses 2+ and intact throughout ABD: Abd is soft, nontender, nondistended EXT: Normal range of motion, no obvious deformity SKIN: No rashes or lesions observed on exposed skin. NEURO: Alert and oriented x 2-3 which seems baseline for the patient. No focal neurological deficits. GCS of 15. Limitations: no limitations Course Vital Signs 12/16/24 12/16/24 12/16/24 16:58 18:52 19:33 Temperature 98.7 F Pulse Rate 79 89 83 Respiratory 20 20 17 Rate Blood Pressure 132/65 134/74 O2 Sat by Pulse 97 99 100 Oximetry Medical Decision Making - Medical Decision Making Was pt. sent in by a medical professional or institution (, BAO, TECHNICAL SERVICE REPRESENTATIVE, urgent care, hospital, or penitentiary...) When possible be specific @ -Sent from [facility] for further evaluation and failure to thrive Did you speak to anyone other than the patient for history (EMS, parent, family, police, friend...)? What history was obtained from this source @ -Spoke with patient's son who helped corroborate the story as well as establish patient's mental status baseline. Did you review nursing and triage notes (agree or disagree)? Why? @ -I reviewed and agree with nursing and triage notes Were old charts reviewed (outside hosp., previous admission, EMS record, old EKG, old radiological studies, urgent care reports/EKG's, penitentiary records)? Report findings @ -Compared today's EKG with EKG from April 2019 with no significant change. Differential Diagnosis (chest pain, altered mental status, abdominal pain women, abdominal pain men, vaginal bleeding, weakness, fever, dyspnea, syncope, headache, dizziness, GI bleed, back pain, seizure, CVA, palpatations, mental health, musculoskeletal)? @ -Failure to thrive, dehydration, electrolyte abnormality, infection. This list is not all inclusive. EKG interpreted by me (3pts min.). @ -As above X-rays interpreted by me (1pt min.). @ -Chest x-ray reveals no obvious acute cardiopulmonary process. CT interpreted by me (1pt min.). @ -CT brain reveals no obvious acute intracranial process. Patient has chronic white matter ischemic changes present. Atrophy present. U/S interpreted by me (1pt. min.). @ -None done What testing was considered but not performed or refused? (CT, X-rays, U/S, labs)? Why? @ -None What meds were considered but not given or refused? Why? @ -None Did you discuss the management of the patient with other professionals (professionals i.e. , BAO, TECHNICAL SERVICE REPRESENTATIVE, lab, RT, psych nurse, outreach and education social worker, satellite dish repairer, teacher, first officer and flight instructor, casework manager)? Give summary @ -Discussed with the admitting provider, JOS Katz of [facility] who accepted the admission. Was smoking cessation discussed for >3mins.? @ -No Was critical care preformed (if so, how long)? @ -No Were there social determinants of health that impacted care today? How? (Homelessness, low income, unemployed, alcoholism, drug addiction, transportation, low edu. Level, literacy, decrease access to med. care, halfway, rehab)? @ -No Was there de-escalation of care discussed even if they declined (Discuss DNR or withdrawal of care, Hospice)? DNR status @ -No What co-morbidities impacted this encounter? (DM, HTN, Smoking, COPD, CAD, Cancer, CVA, ARF, Chemo, Hep., AIDS, mental health diagnosis, sleep apnea, morbid obesity)? @ -No Was patient admitted / discharged? Hospital course, mention meds given and r oute, prescriptions, significant lab abnormalities, going to OR and other pertinent info. @ -Patient presents emergency department complaining of failure to thrive and increased confusion. No appetite. Has not been eating or drinking. Clinically appears mildly dehydrated. We will obtain workup as well as CT brain and CT abdomen pelvis. Patient and family in agreement this plan. Vital signs are within acceptable limits. No focal neurological deficits. Chest x-ray shows no signs of acute cardiopulmonary process. EKG shows no signs of acute ischemia. Laboratory studies are within acceptable limits. CT brain shows chronic white matter disease with no findings suggestive of acute ischemic process or acute intracranial process.CT abdomen pelvis shows no obvious acute process. A renal cyst and fatty infiltration of the liver are present. I updated family, specifically granddaughter as well as patient. Patient will be admitted for her mild confusion and failure to thrive. Neurology consulted. Patient will be admitted for monitoring. Neurology consulted. I spoke with the admitting provider, JOS Katz of [facility] who accepted the admission. Undiagnosed new problem with uncertain prognosis? @ -No Drug Therapy requiring intensive monitoring for toxicity (Heparin, Nitro, Insuli n, Cardizem)? @ -No Were any procedures done? @ -No Diagnosis/symptom? @ -Dehydration, failure to thrive, confusion Acute, or Chronic, or Acute on Chronic? @ -Acute Uncomplicated (without systemic symptoms) or Complicated (systemic symptoms)? @ -Complicated Side effects of treatment? @ -No Exacerbation, Progression, or Severe Exacerbation? @ -No Poses a threat to life or bodily function? How? (Chest pain, [place], [place], pneumonia, PE, COPD, DKA, ARF, appy, cholecystitis, CVA, Diverticulitis, Homicidal, Suicidal, threat to staff... and all critical care pts) @ -Potentially, yes - Lab Data Result diagrams: 12/16/24 17:14 12/16/24 17:14 Lab Results 12/16/24 12/16/24 12/16/24 Range/Units 17:14 17:14 17:14 WBC 9.54 (4.50-10.00) 10*3/uL RBC 3.80 L (4.10-5.20) 10*6/uL Hgb 13.8 (12.0-15.0) g/dL Hct 39.0 (37.2-46.3) % MCV 102.6 H (80.0-97.0) fL MCH 36.3 H (27.0-32.0) pg MCHC 35.4 (32.0-37.0) g/dL Plt Count 203 (140-440) 10*3/uL MPV 9.3 L (9.5-12.2) fL Immature Gran % (Auto) 0.6 % Neutrophils % 78.2 % Lymphocytes % 11.8 % Monocytes % 8.9 % Eosinophils % 0.1 % Basophils % 0.4 % Immature Gran # 0.06 H (0.00-0.04) 10*3/uL Neutrophils # 7.45 (1.80-7.70) 10*3/uL Lymphocytes # 1.13 (0.90-5.00) 10*3/uL Monocytes # 0.85 (0.20-1.00) 10*3/uL Eosinophils # 0.01 L (0.04-0.35) 10*3/uL Basophils # 0.04 (0.00-0.10) 10*3/uL PT 10.8 (10.0-12.5) sec INR 1.0 (<1.2) APTT 23.9 (22.0-30.0) sec Sodium 137 (137-145) mmol/L Potassium 3.7 (3.5-5.1) mmol/L Chloride 107 (98-107) mmol/L Carbon Dioxide 22 (22-30) mmol/L Anion Gap 8 mmol/L BUN 18 H (7-17) mg/dL Creatinine 0.60 (0.52-1.04) mg/dL Est GFR (CKD-EPI)AfAm >90 (>60 ml/min/1.73 sqM) Est GFR (CKD-EPI)NonAf 84 (>60 ml/min/1.73 sqM) Glucose 101 H (74-99) mg/dL Plasma Lactic Acid David (0.7-2.0) mmol/L Calcium 9.3 (8.4-10.2) mg/dL Magnesium 2.1 (1.6-2.3) mg/dL Total Bilirubin 0.8 (0.2-1.3) mg/dL AST 33 (14-36) U/L ALT 17 (4-34) U/L Alkaline Phosphatase 69 (38-126) U/L Total Protein 6.7 (6.3-8.2) g/dL Albumin 4.1 (3.5-5.0) g/dL Urine Color Urine Appearance (Clear) Urine pH (5.0-8.0) Ur Specific [place] (1.001-1.035) Urine Protein (Negative) Urine Glucose (UA) (Negative) Urine Ketones (Negative) Urine Blood (Negative) Urine Nitrite (Negative) Urine Bilirubin (Negative) Urine Urobilinogen (<2.0) mg/dL Ur Leukocyte Esterase (Negative) Influenza Type A (PCR) (Not Detectd) Influenza Type B (PCR) (Not Detectd) RSV (PCR) (Not Detectd) SARS-CoV-2 (PCR) (Not Detectd) 12/16/24 12/16/24 12/16/24 Range/Units 17:14 17:14 18:55 WBC (4.50-10.00) 10*3/uL RBC (4.10-5.20) 10*6/uL Hgb (12.0-15.0) g/dL Hct (37.2-46.3) % MCV (80.0-97.0) fL MCH (27.0-32.0) pg MCHC (32.0-37.0) g/dL Plt Count (140-440) 10*3/uL MPV (9.5-12.2) fL Immature Gran % (Auto) % Neutrophils % % Lymphocytes % % Monocytes % % Eosinophils % % Basophils % % Immature Gran # (0.00-0.04) 10*3/uL Neutrophils # (1.80-7.70) 10*3/uL Lymphocytes # (0.90-5.00) 10*3/uL Monocytes # (0.20-1.00) 10*3/uL Eosinophils # (0.04-0.35) 10*3/uL Basophils # (0.00-0.10) 10*3/uL PT (10.0-12.5) sec INR (<1.2) APTT (22.0-30.0) sec Sodium (137-145) mmol/L Potassium (3.5-5.1) mmol/L Chloride (98-107) mmol/L Carbon Dioxide (22-30) mmol/L Anion Gap mmol/L BUN (7-17) mg/dL Creatinine (0.52-1.04) mg/dL Est GFR (CKD-EPI)AfAm (>60 ml/min/1.73 sqM) Est GFR (CKD-EPI)NonAf (>60 ml/min/1.73 sqM) Glucose (74-99) mg/dL Plasma Lactic Acid David 1.1 (0.7-2.0) mmol/L Calcium (8.4-10.2) mg/dL Magnesium (1.6-2.3) mg/dL Total Bilirubin (0.2-1.3) mg/dL AST (14-36) U/L ALT (4-34) U/L Alkaline Phosphatase (38-126) U/L Total Protein (6.3-8.2) g/dL Albumin (3.5-5.0) g/dL Urine Color Colorless Urine Appearance Clear (Clear) Urine pH 5.5 (5.0-8.0) Ur Specific [place] 1.011 (1.001-1.035) Urine Protein Negative (Negative) Urine Glucose (UA) Negative (Negative) Urine Ketones Trace H (Negative) Urine Blood Negative (Negative) Urine Nitrite Negative (Negative) Urine Bilirubin Negative (Negative) Urine Urobilinogen <2.0 (<2.0) mg/dL Ur Leukocyte Esterase Negative (Negative) Influenza Type A (PCR) Not Detected (Not Detectd) Influenza Type B (PCR) Not Detected (Not Detectd) RSV (PCR) Not Detected (Not Detectd) SARS-CoV-2 (PCR) Not Detected (Not Detectd) - EKG Data -: EKG Interpreted by Me EKG Comments: 12-lead Electrocardiogram Interpretation Note EKG was reviewed and interpreted by myself. 12-lead ECG performed at 1714 is interpreted by me as revealing normal sinus rhythm at a rate of 80 beats per minute. [place] is normal. IA interval is 137 ms, QRS duration is 109 ms, QTc is 401 ms.. There were no ST or T wave abnormalities to suggest myocardial ischemia or injury. R wave progression across the precordium was satisfactory. By my interpretation this EKG is non-diagnostic for acute ischemia. Disposition Clinical Impression: Failure to thrive, Dehydration, Confusion Disposition: ADMITTED IP TO THIS [facility] Condition: Stable Referrals: Anyi Olson [Primary Care Provider] - 1-2 days Time of Disposition: 20:30
--- NOTE | 2024-12-16 20:34 | CT ---
EXAMINATION TYPE: CT abdomen pelvis w con DATE OF EXAM: 12/16/2024 7:45 PM COMPARISON: None. CLINICAL INDICATION: Female, 84 years old with history of nonspecific abd pain, decreased appetite, C onfusion, decreased appetite x 4 days TECHNIQUE: Axial images were obtained from above the diaphragm to the pubic rami in the axial plane a t 5 mm thick sections. Reconstructed images are reviewed on the computer in the coronal plane. CONTRAST: 100ml mL of Isovue 300. Study performed without Oral Contrast DLP: 2124 mGycm, Automated exposure control for dose reduction was used. FINDINGS: Limited CT sections are obtained the lung bases. The lung bases are clear. CT ABDOMEN: Liver: There is mild fatty infiltration of the liver. Spleen: Normal Pancreas: Normal Adrenal glands: The adrenal glands are normal. Gallbladder: Normal Kidneys: No masses are evident. No hydronephrosis is present. There is a 7.2 cm exophytic left gilson l cyst. Small peripelvic cysts within the right kidney. Delayed images were obtained through the kid neys, which remain unremarkable. Aorta: Vascular calcification is within the aorta. Inferior vena cava: Normal. CT PELVIS: Loops of bowel within the abdomen and pelvis are normal. This study is without oral contrast limi ting follow-up evaluation. Appendix: Normal as visualized. Urinary bladder: Normal. Genitourinary structures: Uterus appears normal. Adnexa are unremarkable Osseous structures: No suspicious lytic or sclerotic lesions. IMPRESSION: 1. Mild fatty infiltration of liver. 2. Left renal cyst [facility], , 12/16/2024 8:32 PM
[2024-12-16] MEDS ORDERED: ONDANSETRON 4 MG/2 ML VIAL IVP PRN (20:38)
[2024-12-16] MEDS ORDERED: NALOXONE 0.4 MG/ML 1 ML VIAL IV PRN (20:38)
[2024-12-16] MEDS: SODIUM CHLORIDE 0.9% 1,000 ML IV STA (21:02)
[2024-12-16] MEDS: ACETAMINOPHEN TAB 325 MG TAB PO PRN (22:03)
[2024-12-17 04:29] LABS: ALT 16 U/L (4-34); AST 43 U/L (14-36); African American GFR (CKD) >90 (>60 ml/min/1.73 sqM); Albumin 3.4 g/dL (3.5-5.0); Albumin/Globulin Ratio 1.4; Alkaline Phosphatase 42 U/L (38-126); Anion Gap 8 mmol/L; Blood Urea Nitrogen 13 mg/dL (7-17); Calcium 8.6 mg/dL (8.4-10.2); Carbon Dioxide 19 mmol/L (22-30); Chloride 108 mmol/L (98-107); Globulin 2.5 g/dL; Glucose 86 mg/dL (74-99); Non-African American GFR(CKD) >90 (>60 ml/min/1.73 sqM); Sodium 135 mmol/L (137-145); Total Protein 5.9 g/dL (6.3-8.2)
[2024-12-17 04:31] LABS: Potassium 4.2 mmol/L (3.5-5.1)
[2024-12-17 05:57] LABS: Basophils # (A) 0.05 10*3/uL (0.00-0.10); Basophils % (A) 0.6 %; Eosinophils # (A) 0.02 10*3/uL (0.04-0.35); Eosinophils % (A) 0.2 %; HCT 36.7 % (37.2-46.3); HGB 12.8 g/dL (12.0-15.0); Lymphocytes # (A) 0.85 10*3/uL (0.90-5.00); Lymphocytes % (A) 9.8 %; MCH 35.8 pg (27.0-32.0); MCHC 34.9 g/dL (32.0-37.0); MCV 102.5 fL (80.0-97.0); Mean Platelet Volume 10.4 fL (9.5-12.2); Monocytes # (A) 0.94 10*3/uL (0.20-1.00); Monocytes % (A) 10.8 %; Neutrophils # (A) 6.78 10*3/uL (1.80-7.70); Neutrophils % (A) 78.3 %; Platelet Count 156 10*3/uL (140-440); RBC 3.58 10*6/uL (4.10-5.20); RDW 15.6 % (11.5-14.5); WBC 8.67 10*3/uL (4.50-10.00)
[2024-12-17] MEDS ORDERED: NON FORMULARY DRUG (Vitamin B Complex [Vitamin B Complex] 1 EACH Capsule) PO SCH (08:00)
[2024-12-17] MEDS: ASPIRIN 81 MG PO SCH (08:06)
[2024-12-17] MEDS: SACUBITRIL/VALSARTAN 24 MG-26 MG TABLET PO SCH (08:06)
[2024-12-17] MEDS: VIT A,C & E-LUTEIN-MINERALS 1 EACH TAB PO SCH (10:03)
[2024-12-17] MEDS: ENOXAPARIN 40 MG/0.4 ML SYRINGE SQ SCH (12:58)
--- NOTE | 2024-12-17 15:25 | P.CNNES ---
History of Present Illness Consult date: 12/17/24 Requesting physician: Charlie Mobley Reason for Consult: Confusion History of Present Illness: Patient is a 84-year-old right-handed female came to the hospital by ambulance yesterday at 4:56 PM for altered mental status. Patient is very confused, not able to provide much history. Patient's son was present, who provided with most of the history. Patient states that she came to the hospital because she has been having "severe" abdominal pain for last 1 month. She points to the umbilical region. Patient's son mentions that he has never heard her saying about abdominal pain. Yesterday she did not complain of any abdominal pain to her and at this time, she is not complaining of abdominal pain. Patient denies any constipation or diarrhea, no nausea or vomiting. No bleeding in the upper or lower GI region, no abdominal cramps. Her son states that she has not been eating or drinking for last 4 days. Neurology was consulted for altered mental status. Patient's son mentions that she has some sundowners, as today she did not did not know where she was at. Sometimes she knows the year, sometimes she does not. As per EMS flowsheet when they arrived, at [facility] for "failure to thri ve". On arrival, patient was using the restroom, patient access was delayed. Staff mentioned that patient has not been eating or drinking anything for 4 days. When patient came out of the restroom, she confirmed that she just does not have any appetite. She mentioned that she just wants to sleep. She felt weak and lethargic. Patient complained of limbs feeling heavy. Patient was alert orient x 4. Patient has a history of mild confusion but is able to answer all questions and follow commands. Patient has a fast ED of 0. Patient denied any chest abdominal or back pain, shortness of breath or nausea vomiting. EKG showed sinus rhythm. Blood glucose 109. Patient's vitals was blood pressure 130/64, pulse rate 88 respiration 16 saturation 98% temperature 99.5. Her vitals on arrival was Tmax 99.7 other vital stable. Blood test showed normal WBC hemoglobin 13.8 with elevated MCV 102.6. Platelets are normal. PT PTT normal, CMP normal. UA negative, influenza, RSV and coronavirus PCR negative. Chest x-ray revealed no acute pulmonary process. CT head revealed no acute intracranial process. Confluent white matter ischemic type changes with atrophy. I personally reviewed CT head, agree with the findings. Possible old lacunar in the right centrum semiovale. CT of abdomen pelvis revealed mild fatty infiltration of the liver. Left renal cyst. EKG showed sinus rhythm. Patient's home medications include Lasix 40 mg 3 times a week, aspirin 81 mg daily, vitamin D3, vitamin B complex, valsartan. No use of marijuana. Patient's son mentioned that patient used to be living in assisted living for 10 years. However in the last 2 to 3 years, she has been moved to [facility] which is jail. This was done because she was not able to take care of herself, she was declining, she would not change her clothes and would not shower. She states her memory functions has been relatively normal although some short-term memory issues, which he believed was completely age-related decline in the last 2 to 3 years. However the memory functions has rapidly declined in the last few days. No report of hallucinations. Patient has hypertension, no diabetes. No report of strokelike symptoms. Patient has history of stroke in 2012, but family does not know what side was affected. No obvious residual deficits. She is smoked 4 to 5 cigarettes/day for 10 years, quit about over 50 years ago. She does have mild ischemic cardiomyopathy. Dorothy pulliam is no family history of dementia although her father at age 40-50 with MA. Both mother lived to with no memory issues or her aunts or uncles. Review of Systems All pertinent positive and negative review of systems mentioned in the HPI. Otherwise unremarkable. Past Medical History Past Medical History: Coronary Artery Disease (CAD), CVA/TIA, GERD/Reflux, Hyperlipidemia, Hypertension, Myocardial Infarction (MA), Rheumatoid Arthritis (RA) Additional Past Medical History / Comment(s): CVA 2011 Last Myocardial Infarction Date:: 01/2015 History of Any Multi-Drug Resistant Organisms: None Reported Past Surgical History: Heart Catheterization With Stent, Tubal Ligation Past Anesthesia/Blood Transfusion Reactions: No Reported Reaction Date of Last Stent Placement:: 01/2015 Past Psychological History: Depression Smoking Status: Former smoker Past Alcohol Use History: Rare Past Drug Use History: None Reported - Past Family History Father Family Medical History: Myocardial Infarction (MA) Additional Family Medical History / Comment(s): passed at 60 years old. Mother Family Medical History: Congestive Heart Failure (CHF) Additional Family Medical History / Comment(s): at 99 years old. Brother(s) Family Medical History: Hyperlipidemia, Hypertension, Myocardial Infarction (MA) Additional Family Medical History / Comment(s): still living. Medications and Allergies Home Medications Medication Instructions Recorded Confirmed Type Aspirin EC [Ecotrin Low Dose] 81 mg PO DAILY@79905/03/19 12/16/24 History Furosemide [Lasix] 40 mg PO MOWESA@79905/03/19 12/16/24 History Acetaminophen [Tylenol Arthritis] 650 mg PO Q6H PRN 12/16/24 12/16/24 History Cholecalciferol (Vitamin D3) 50 mcg PO DAILY@79912/16/24 12/16/24 History [Vitamin D3 (50 Mcg = 2000 Iu)] Nitroglycerin Sl Tabs [Nitrostat] 0.4 mg SL Q5M PRN 12/16/24 12/16/24 History Sacubitril/Valsartan [Entresto 24 0.5 tab PO BID@799,199912/16/24 12/16/24 History mg-26 mg Tablet] Vit C/E/Zn/Coppr/Lutein/Zeaxan 1 cap PO DAILY@79912/16/24 12/16/24 History [Preservision Areds 2 Softgel] Vitamin B Complex 1 cap PO DAILY@79912/16/24 12/16/24 History Allergies Allergy/AdvReac Type Severity Reaction Status Date / Time No Known Allergies Allergy Verified 12/16/24 19:01 Physical Examination - Vital Signs Vital Signs: Vital Signs Temp Pulse Pulse Resp BP BP BP 12/17/24 07:15 99.2 F 88 18 137/76 12/17/24 01:24 98.2 F 83 16 124/55 12/16/24 21:48 99.7 F H 88 16 132/62 12/16/24 21:32 99.2 F 89 17 120/55 12/16/24 19:33 83 17 12/16/24 18:52 89 20 134/74 12/16/24 16:58 98.7 F 79 20 132/65 Pulse Ox 12/17/24 07:15 95 12/17/24 01:24 95 12/16/24 21:48 96 12/16/24 21:32 97 12/16/24 19:33 100 12/16/24 18:52 99 12/16/24 16:58 97 Intake and Output 12/16/24 12/17/24 12/17/24 22:59 06:59 14:59 Output Total 200 200 Balance -200 -200 Output: Urine 200 200 Other: Voiding Method External Catheter # Voids 1 # Bowel Movements 1 Weight 68.039 kg Patient is an elderly female, very pleasant, in no acute distress. Patient is alert awake, but not very well-oriented. She knows her date of 1940 and that she is 84 years old. She knows it is the month of December, but states the year is 2523. She knows she is in the hospital which is "new 1", but does not know the name. She knows it is [facility]. She is very forgetful about her relatives. She states her brother's name is "Peewee" although that is her son's name, and her brother's name is Bryn. Patient was able to tell me name of Deshawn girlfriend Elicia. Patient states Peewee has 2 children, although he has none. She states her daughter Avelina has 2 children, although she has only 1. She could not tell name of any grandchildren. Patient not able to tell the name of her nieces and nephew. Patient could not tell name of the current president. She states it is "not Rodriguez". I gave her multiple prompts including Trump, and she could not recognize name of the current president Trdaly. Her speech and language functions are normal. Patient can name and repeat very well. No aphasia or dysarthria. Attention, concentration is intact and fund of knowledge is moderately limited. Patient has negative visual spatial apraxia, w as able to perform the task with 1 prompt. Patient has bilateral positive palmomental reflexes. No hallucinations. On cranial nerve examination, pupils are equal, round and reacting to light, visual nielsen are full on confrontation, with no neglect on double simultaneous stimulation. Extraocular muscles are intact with no nystagmus, although it appears patient may have mildly restricted upward gaze. Face is symmetric, tongue protrudes to the midline. Palatal elevation and sensation normal, hearing and shoulder shrug normal, facial sensation normal. On muscle strength testing, there is no pronator drift and the strength is normal in arms distally and proximally. In the lower limbs, hip flexion is 4 with a lot of pain, knee extension 5, ankle dorsiflexion 5, toe extension 5 bilaterally. Deep tendon reflexes are (right/left) biceps 2/3, brachioradialis 1+/3, knees 1+/2+, plantars down on the right and questionable up on the left. Sensory to touch is equal with no neglect on double simultaneous stimulation. Cerebellar function showed no ataxia for aieepu-nt-[id number] testing. No dysdiadochokinesia. Tone and bulk of muscles normal. Gait deferred.. On general examination, there is no carotid bruit or murmur, S1-S2 audible. Chest is clear on consultation. Abdomen is soft nontender. No organomegaly, bowel sounds present. Peripheral pulses are present. No peripheral edema. Results - Laboratory Findings CBC and BMP: 12/17/24 03:07 12/17/24 03:07 Abnormal Lab Findings: Abnormal Labs 12/16/24 12/16/24 12/16/24 17:14 17:14 18:55 RBC 3.80 L Hct MCV 102.6 H MCH 36.3 H RDW MPV 9.3 L Immature Gran # 0.06 H Lymphocytes # Eosinophils # 0.01 L Sodium Chloride Carbon Dioxide BUN 18 H Creatinine Glucose 101 H AST Total Protein Albumin Urine Ketones Trace H 12/17/24 12/17/24 03:07 03:07 RBC 3.58 L Hct 36.7 L MCV 102.5 H MCH 35.8 H RDW 15.6 H MPV Immature Gran # Lymphocytes # 0.85 L Eosinophils # 0.02 L Sodium 135 L Chloride 108 H Carbon Dioxide 19 L BUN Creatinine 0.45 L Glucose AST 43 H Total Protein 5.9 L Albumin 3.4 L Urine Ketones Assessment and Plan Assessment: * Altered mental status, possible due to delirium. No focal symptoms reported, and examination is relatively nonfocal. Patient probably has underlying cognitive impairment which has rapidly progressed in the last few days, which could be related to delirium. * Failure to thrive, with patient not eating or drinking for last 4 days. Exact cause uncertain. Patient complaining of abdominal pain, although CT abdomen pelvis normal, and abdomen is soft, nontender. * Abnormal CT head, with evidence of significant confluent bilateral periventricular and white matter disease, consistent with significant small vessel disease. * History of CVA, with no residual deficits * History of cardiomyopathy * Hypertension * Ex tobacco use, was a light smoker. Plan: * Patient's examination is relatively nonfocal. Her memory functions has rapidly declined in the last few days. Exact cause remains uncertain. No obvious metabolic causes identified. * Agree with checking B12, folate, TSH, B1 level. We will also check hemoglobin A1c, fasting lipid panel. * CT head revealed significant confluent subcortical white matter disease. We will check carotid Doppler, rule out stenosis. * Check EEG rule out encephalopathy. * Continue aspirin 81 mg daily. * Neurology will follow. Thank you for the consult. Time with Patient: Greater than 30
--- NOTE | 2024-12-17 15:39 | P.HPIM ---
History of Present Illness H&P Date: 12/17/24 Patient is a 84-year-old female with CAD, history of CVA/TIA, dementia, GERD, hyperlipidemia, hypertension, rheumatoid arthritis, depression from [facility] for evaluation of failure to thrive. Patient reported that she has not been eating for the last 4 days and has been shown to have some mild confusion worse than baseline. She mentions that she is having difficulty swallowing solid foods as if they "get stuck" in her chest but she can slowly swallow liquids. Most often she does not feel hungry or thirsty. She also reported intermittent generalized abdominal pain for the past few days. She denied chest pain, palpitations, shortness of breath, fever, chills, weight loss, nausea, vomiting, constipation, diarrhea, focal weakness, vision changes, speech changes, recent prolonged travel, recent trauma or fall. On admission: Vitals: Temp 98.7 F, pulse rate 79, RR 20, BP 132/65, O2 saturation 97% on room air Labs: WBC 9.5, hemoglobin 13.8, MCV 102.6, sodium 137, potassium 3.7, bicarb 22, BUN 18, creatinine 0.6, glucose 101, lactic acid 1.1, calcium 9.3, magnesium 2.1, albumin 4.1. Liver enzymes within normal limits. Coagulation panel within normal limits. Urinalysis shows trace ketones, negative protein negative glucose, negative nitrite, negative leukocyte Estrace. Cepheid 4 Plex negative. Imaging: EKG showed sinus rhythm with a rate of 80, left axis deviation, no ST-T changes, QTc [address] brain shows chronic white matter ischemic type changes with atrophy, no findings suggestive of acute ischemic process or acute intracranial process.CT abdomen pelvis shows no obvious acute process, noted mild fatty infiltration of the liver and a left renal cyst. Chest x-ray showed no acute cardiopulmonary process ED documentation reviewed. Review of systems: Pertinent positives and negatives as discussed in HPI, a complete review of systems was performed and all other systems are negative. Physical examination: Vital signs reviewed General: non toxic, no distress, appears at stated age, room air, thin and frail appearing Derm: no unusual rashes/lesions, warm Head: atraumatic, normocephalic, symmetric Eyes: EOMI, anicteric sclera, pupils equal round reactive to light ENT: Nose and ears atraumatic Neck: No cervical lymphadenopathy, trachea midline, supple Mouth: no lip lesion, mucus membranes moist Cardiovascular: S1S2 reg, no murmur Lungs: CTA bilateral, no rhonchi, no rales, no accessory muscle use Abdominal: soft, nondistended, nontender to palpation, no guarding Ext: muscle strength 5 out of 5 in all 4 extremities grossly, no gross muscle atrophy, no contractures, positive dorsalis pedis pulse bilateral, no edema Neuro: CN II-XI grossly intact, no gross focal neuro deficits Psych: Alert and oriented x 2, appropriate affect and mood Assessment/Plan: The patient is admitted with an anticipated greater than 2 midnight stay for evaluation of acute encephalopathy failure to thrive Active: #. Acute encephalopathy, likely due to poor oral intake, rule out other causes #. Failure to thrive #. History of dementia #. History of CVA/TIA Imaging and EKG showed no acute process 1L NS Bolus given in the ED. continue with 0.9 normal saline at 100 cc/h Initiated Remeron 15 mg p.o. daily Modified barium swallow ordered Consult speech therapy Consult PT OT Consulted dietary Neurology consulted, recs appreciated #. Microcytosis, likely due to malnutrition Hemoglobin 13.8, MCV 102.6 Check B12 and folate Chronic Conditions: #. CAD #. GERD #. Hyperlipidemia #. Hypertension #. Rheumatoid arthritis #. Depression Continue with home aspirin, Lasix 40 mg p.o., Entresto, multivitamin DVT ppx: Lovenox 40 mg subcu daily CODE STATUS: Full Discussed with: Patient patient's son Anticipated discharge place: Pending clinical course Alida Troncoso MD PGY-1 Internal Medicine Dictation was produced using [employer] dictation software. please excuse any grammatical, word or spelling errors. Past Medical History Past Medical History: Coronary Artery Disease (CAD), CVA/TIA, GERD/Reflux, Hyperlipidemia, Hypertension, Myocardial Infarction (SC), Rheumatoid Arthritis (RA) Additional Past Medical History / Comment(s): CVA 2011 Last Myocardial Infarction Date:: 01/2015 History of Any Multi-Drug Resistant Organisms: None Reported Past Surgical History: Heart Catheterization With Stent, Tubal Ligation Past Anesthesia/Blood Transfusion Reactions: No Reported Reaction Date of Last Stent Placement:: 01/2015 Past Psychological History: Depression Smoking Status: Former smoker Past Alcohol Use History: Rare Past Drug Use History: None Reported - Past Family History Father Family Medical History: Myocardial Infarction (SC) Additional Family Medical History / Comment(s): passed at 60 years old. Mother Family Medical History: Congestive Heart Failure (CHF) Additional Family Medical History / Comment(s): at 99 years old. Brother(s) Family Medical History: Hyperlipidemia, Hypertension, Myocardial Infarction (SC) Additional Family Medical History / Comment(s): still living. Medications and Allergies Home Medications Medication Instructions Recorded Confirmed Type Aspirin EC [Ecotrin Low Dose] 81 mg PO DAILY@79905/03/19 12/16/24 History Furosemide [Lasix] 40 mg PO MOWESA@79905/03/19 12/16/24 History Acetaminophen [Tylenol Arthritis] 650 mg PO Q6H PRN 12/16/24 12/16/24 History Cholecalciferol (Vitamin D3) 50 mcg PO DAILY@79912/16/24 12/16/24 History [Vitamin D3 (50 Mcg = 2000 Iu)] Nitroglycerin Sl Tabs [Nitrostat] 0.4 mg SL Q5M PRN 12/16/24 12/16/24 History Sacubitril/Valsartan [Entresto 24 0.5 tab PO BID@799,199912/16/24 12/16/24 History mg-26 mg Tablet] Vit C/E/Zn/Coppr/Lutein/Zeaxan 1 cap PO DAILY@79912/16/24 12/16/24 History [Preservision Areds 2 Softgel] Vitamin B Complex 1 cap PO DAILY@79912/16/24 12/16/24 History Allergies Allergy/AdvReac Type Severity Reaction Status Date / Time No Known Allergies Allergy Verified 12/16/24 19:01 Physical Exam Vitals: Vital Signs Temp Pulse Pulse Resp BP BP Pulse Ox 12/17/24 01:24 98.2 F 83 16 124/55 95 12/16/24 21:48 99.7 F H 88 16 132/62 96 12/16/24 21:32 99.2 F 89 17 120/55 97 12/16/24 19:33 83 17 100 12/16/24 18:52 89 20 134/74 99 12/16/24 16:58 98.7 F 79 20 132/65 97 Intake and Output 12/16/24 12/17/24 12/17/24 22:59 06:59 14:59 Output Total 200 200 Balance -200 -200 Output: Urine 200 200 Other: Voiding Method External Catheter Weight 68.039 kg Results CBC & Chem 7: 12/17/24 03:07 12/17/24 03:07 Labs: Abnormal Lab Results - Last 24 Hours (Table) 12/16/24 12/16/24 12/16/24 Range/Units 17:14 17:14 18:55 RBC 3.80 L (4.10-5.20) 10*6/uL Hct (37.2-46.3) % MCV 102.6 H (80.0-97.0) fL MCH 36.3 H (27.0-32.0) pg RDW (11.5-14.5) % MPV 9.3 L (9.5-12.2) fL Immature Gran # 0.06 H (0.00-0.04) 10*3/uL Lymphocytes # (0.90-5.00) 10*3/uL Eosinophils # 0.01 L (0.04-0.35) 10*3/uL Sodium (137-145) mmol/L Chloride (98-107) mmol/L Carbon Dioxide (22-30) mmol/L BUN 18 H (7-17) mg/dL Creatinine (0.52-1.04) mg/dL Glucose 101 H (74-99) mg/dL AST (14-36) U/L Total Protein (6.3-8.2) g/dL Albumin (3.5-5.0) g/dL Urine Ketones Trace H (Negative) 12/17/24 12/17/24 Range/Units 03:07 03:07 RBC 3.58 L (4.10-5.20) 10*6/uL Hct 36.7 L (37.2-46.3) % MCV 102.5 H (80.0-97.0) fL MCH 35.8 H (27.0-32.0) pg RDW 15.6 H (11.5-14.5) % MPV (9.5-12.2) fL Immature Gran # (0.00-0.04) 10*3/uL Lymphocytes # 0.85 L (0.90-5.00) 10*3/uL Eosinophils # 0.02 L (0.04-0.35) 10*3/uL Sodium 135 L (137-145) mmol/L Chloride 108 H (98-107) mmol/L Carbon Dioxide 19 L (22-30) mmol/L BUN (7-17) mg/dL Creatinine 0.45 L (0.52-1.04) mg/dL Glucose (74-99) mg/dL AST 43 H (14-36) U/L Total Protein 5.9 L (6.3-8.2) g/dL Albumin 3.4 L (3.5-5.0) g/dL Urine Ketones (Negative) Thrombosis Risk Factor Assmnt - Choose All That Apply Any of the Below Risk Factors Present?: No Other Risk Factors: Yes Each Risk Factor Represents 3 Points: Age 75 years or older Thrombosis Risk Factor Assessment Total Risk Factor Score: 3 Thrombosis Risk Factor Assessment Level: Moderate Risk
--- NOTE | 2024-12-17 16:03 | US ---
EXAMINATION TYPE: US carotid duplex BILAT DATE OF EXAM: 12/17/2024 COMPARISON: Carotid ultrasound 10/17/2011 CLINICAL INDICATION: Female, 84 years old with history of AMS, hx of cva; No HTN. Previous smoker. Additional History: .... TECHNIQUE: Grayscale, color Doppler and spectral Doppler evaluation of the bilateral carotid systems and vertebral arteries. Indirect Doppler criteria was utilized. FINDINGS: EXAM MEASUREMENTS: RIGHT: Peak Systolic Velocity (PSV) cm/sec ----- Right CCA: 88.1 ----- Right ICA: 157.0 ----- Right ECA: N/A ICA/CCA ratio: 1.8 RIGHT: End Diastole cm/sec ----- Right CCA: 9.2 ----- Right ICA: 26.2 ----- Right ECA: N/A LEFT: Peak Systolic Velocity (PSV) cm/sec ----- Left CCA: 77.1 ----- Left ICA: 136.0 ----- Left ECA: 78.5 ICA/CCA ratio: 1.8 LEFT: End Diastole cm/sec ----- Left CCA: 10.6 ----- Left ICA: 25.6 ----- Left ECA: 0.5 VERTEBRALS (direction of flow): Right Vertebral: Antegrade Left Vertebral: Antegrade Rhythm: Normal A AUXILIARY NOTES: Limited visualization of due to tortuous vessels and posterior location. Unable to visualize right ECA: occlusion vs dives down. Plaque seen bilaterally. Elevated Proximal right ICA and left mid ICA velocities. Color Doppler imaging shows patency with blood flow throughout the carotid artery. Spectral waveforms are within normal limits. IMPRESSION: Right: Less than 50% stenosis of the carotid bifurcation. Nonvisualization of the right ECA which may be due to occlusion versus tortuosity. This can be further evaluated with CTA as clinically indicate d. Left: Less than 50% stenosis of the carotid bifurcation. Criteria for Assigning % of Stenosis / Diameter reduction (Estimation based on the indirect measurements of the internal carotid artery velocities (ICA PSV). 1. Normal (no stenosis)=ICA PSV < 180 cm/s: ratio < 2.0: ICA EDV<40 cm/s. 2. Less than 50% stenosis=ICA PSV < 180 cm/s: ratio < 2.0: ICA EDV<40 cm/s. 3. 50 to 69% stenosis=ICA PSV of 180 to 230 cm/s: ration 2.0 ? 4.0: ICA EDV 40-100 cm/s. PSV 125-180 cm/sec and ICA/CCA PSV Ratio ? 2.0 is also consistent with 50-69% stenosis 4. Greater than 70% stenosis to near occlusion= ICA PSV > 230 cm/s: ratio > 4.0: ICA EDV > 100 cm/s. 5. Near occlusion= ICA PSV velocities may be low or undetectable: variable ratio and ICA EDV. 6. Total occlusion=unable to detect flow. [facility], , 12/17/2024 4:01 PM
[2024-12-17] MEDS: MIRTAZAPINE 15 MG TAB PO SCH (20:12)
[2024-12-18 02:49] LABS: Chol/HDL Ratio 2.44 Ratio; LDL Cholesterol,Calculated 77.9 mg/dL (0.0-131.0); VLDL Calculation 18.82 mg/dL (5.00-40.00)
[2024-12-18] MEDS: PANTOPRAZOLE 40 MG TABLET PO SCH (05:10)
[2024-12-18] MEDS: FUROSEMIDE 40 MG TAB PO SCH (08:27)
[2024-12-18 14:13] VITALS: BMI 30.2
--- NOTE | 2024-12-18 14:44 | FL ---
EXAMINATION TYPE: FL barium swallow DATE OF EXAM: 12/18/2024 COMPARISON: CT abdomen and pelvis 2 days earlier CLINICAL INDICATION: Female, 84 years old with history of Difficulty swallowing, TECHNIQUE: A single contrast esophagram is performed utilizing barium. A total of 10 seconds of flu oroscopic time was utilized during procedure and 17 images obtained. Total DAP = n/p. FINDINGS: Suboptimal study due to patient's underlying confusion along with inability to stand. The e sophagus shows adequate motility and emptying into the stomach. Small-sized hiatal hernia is present. No significant stricture. No significant gastroesophageal reflux was seen during real time performan ce of this study. IMPRESSION: Suboptimal study with small size hiatal hernia. No stricture. [facility], , 12/18/2024 2:41 PM
--- NOTE | 2024-12-18 15:44 | EEG ---
ELECTROENCEPHALOGRAM REPORT PREAMBLE: This is an 84-year-old female with altered mental status. EEG FINDINGS: This is a 21-channel digital EEG recorded with video component, utilizing 10/20 international system with referential and bipolar montages. Background consists of well developed, well regulated moderate amplitude activity in 9 to 10 hertz alpha, intermixed with some 6 to 7 hertz theta activity seen in bihemispheric region. Background is posterior dominant and reactive to eye opening and closing. Photic driving response was not seen. Hyperventilation was not done. Stage 2 sleep was attained with presence of bilaterally symmetric theta and delta frequency rhythm with lot of sleep spindles and some vertex waves. No focal or generalized epileptiform activity was seen. IMPRESSION: This is an abnormal EEG due to background slowing, suggestive of mild encephalopathy. No focal, lateralized or epileptiform activity was seen. MMYULI / VALENTINN: [id number] /
--- NOTE | 2024-12-18 16:42 | P.PN ---
Subjective Progress Note Date: 12/18/24 Patient is a 84-year-old female with CAD, history of CVA/TIA, dementia, GERD, hyperlipidemia, hypertension, rheumatoid arthritis, depression from [facility] for evaluation of failure to thrive. Patient reported that she has not been eating for the last 4 days and has been shown to have some mild confusion worse than baseline. She mentions that she is having difficulty swallowing solid foods as if they "get stuck" in her chest but she can slowly swallow liquids. Most often she does not feel hungry or thirsty. She also reported intermittent generalized abdominal pain for the past few days. She denied chest pain, palpitations, shortness of breath, fever, chills, weight loss, nausea, vomiting, constipation, diarrhea, focal weakness, vision changes, speech changes, recent prolonged travel, recent trauma or fall. On admission: Vitals: Temp 98.7 F, pulse rate 79, RR 20, BP 132/65, O2 saturation 97% on room air Labs: WBC 9.5, hemoglobin 13.8, MCV 102.6, sodium 137, potassium 3.7, bicarb 22, BUN 18, creatinine 0.6, glucose 101, lactic acid 1.1, calcium 9.3, magnesium 2.1, albumin 4.1. Liver enzymes within normal limits. Coagulation panel within normal limits. Urinalysis shows trace ketones, negative protein negative glucose, negative nitrite, negative leukocyte Estrace. Cepheid 4 Plex negative. Imaging: EKG showed sinus rhythm with a rate of 80, left axis deviation, no ST-T changes, QTc [address] brain shows chronic white matter ischemic type changes with atrophy, no findings suggestive of acute ischemic process or acute intracranial process.CT abdomen pelvis shows no obvious acute process, noted mild fatty infiltration of the liver and a left renal cyst. Chest x-ray showed no acute cardiopulmonary process 12/18/2024 patient seen and examined at bedside. No acute events overnight. Intake of food and liquids has increased but patient still has poor appetite. W as called by speech pathology on swallow evaluation that patient was having pain on swallowin. MBS switched to esophagogram Labs: Folate 9.3, B12 697, TSH 1.8, A1c 5.1. Lipid panel showed LDL 77, tri glycerides 94, cholesterol 164. Imaging; carotid Doppler study showed less than 50% stenosis of both left and right carotid bifurcations Review of systems: Pertinent positives and negatives as discussed in HPI, a complete review of systems was performed and all other systems are negative. Physical examination: Vital signs reviewed General: non toxic, no distress, appears at stated age, room air, thin and frail appearing Derm: no unusual rashes/lesions, warm Head: atraumatic, normocephalic, symmetric Eyes: EOMI, anicteric sclera, pupils equal round reactive to light ENT: Nose and ears atraumatic Neck: No cervical lymphadenopathy, trachea midline, supple Mouth: no lip lesion, mucus membranes moist Cardiovascular: S1S2 reg, no murmur Lungs: CTA bilateral, no rhonchi, no rales, no accessory muscle use Abdominal: soft, nondistended, nontender to palpation, no guarding Ext: muscle strength 5 out of 5 in all 4 extremities grossly, no gross muscle atrophy, no contractures, positive dorsalis pedis pulse bilateral, no edema Neuro: CN II-XI grossly intact, no gross focal neuro deficits Psych: Alert and oriented x 2, appropriate affect and mood Assessment/Plan: The patient is admitted with an anticipated greater than 2 midnight stay for evaluation of acute encephalopathy failure to thrive Active: #. Acute encephalopathy, likely due to poor oral intake, rule out other causes #. Failure to thrive #. History of dementia #. History of CVA/TIA Imaging and EKG showed no acute process Switch IVF to LR 70cc/hr Continue Remeron 15 mg p.o. daily Modified barium swallow switched to esophagogram Consult speech therapy. Pain on swallowing during evaluation. Recommended diet with soft foods Consult PT OT Consulted dietary Neurology consulted, recs appreciated. Carotid study unremarkable, TSH WNL. EEG ordered #. Microcytosis, likely due to malnutrition Hemoglobin 13.8, MCV 102.6 B12 and folate WNL Chronic Conditions: #. CAD #. GERD #. Hyperlipidemia #. Hypertension #. Rheumatoid arthritis #. Depression Continue with home aspirin, Lasix 40 mg p.o., Entresto, multivitamin DVT ppx: Lovenox 40 mg subcu daily CODE STATUS: Full Discussed with: Patient patient's son Anticipated discharge place: Pending clinical course Alida Troncoso MD PGY-1 Internal Medicine Dictation was produced using [employer] dictation software. please excuse any grammatical, word or spelling errors. Attestation: I have seen and examined this patient with my resident, assessment and plan discussed with the resident, agree with assessment and plan as written above. Dr. Montoya Objective - Vital Signs Vital signs: Vital Signs Temp 98.4 F 12/18/24 00:50 Pulse 86 12/18/24 00:50 Resp 16 12/18/24 00:50 BP 153/64 12/18/24 00:50 Pulse Ox 98 12/18/24 00:50 FiO2 Intake & Output 12/17/24 12/18/24 12/18/24 18:59 06:59 18:59 Intake Total 240 Balance 240 Intake: Oral 240 Other: # Voids 1 4 # Bowel Movements 1 - Labs CBC & Chem 7: 12/17/24 03:07 12/17/24 03:07 Labs: Abnormal Lab Results - Last 24 Hours (Table) 12/17/24 Range/Units 16:34 HDL Cholesterol 67.30 H (40.00-60.00) mg/dL
[2024-12-18] MEDS: DONEPEZIL 5 MG TAB PO SCH (21:32)
[2024-12-19] MEDS: LACTATED RINGERS 1,000 ML IV SCH (00:46)
[2024-12-19] MEDS: QUEtiapine 25 MG TAB PO PRN (00:49)
[2024-12-19 04:02] LABS: African American GFR (CKD) >90 (>60 ml/min/1.73 sqM); Anion Gap 7 mmol/L; Blood Urea Nitrogen 13 mg/dL (7-17); Calcium 9.4 mg/dL (8.4-10.2); Carbon Dioxide 29 mmol/L (22-30); Chloride 101 mmol/L (98-107); Glucose 99 mg/dL (74-99); Non-African American GFR(CKD) 84 (>60 ml/min/1.73 sqM); Potassium 3.1 mmol/L (3.5-5.1); Sodium 137 mmol/L (137-145)
[2024-12-19] MEDS: POTASSIUM CHLORIDE ER 20 MEQ TAB.ER PO SCH (05:53)
[2024-12-19 06:57] LABS: Vit B1(Thiamine) 66 ug/L (38-122)
[2024-12-19] MEDS ORDERED: POTASSIUM CHLORIDE ER 20 MEQ TAB.ER PO STA (09:47)
[2024-12-19 09:56] VITALS: RESP 15
--- NOTE | 2024-12-19 12:41 | P.PN ---
Subjective Progress Note Date: 12/18/24 Patient was seen for follow-up. Patient's son was also present by the bedside. He states that patient is sleeping a lot. She is not eating. No other concerns. Objective - Vital Signs Vital signs: Vital Signs Temp 98.5 F 12/18/24 14:20 Pulse 74 12/18/24 14:20 Resp 15 12/18/24 14:20 BP 121/73 12/18/24 14:20 Pulse Ox 98 12/18/24 14:20 FiO2 Intake & Output 12/17/24 12/18/24 12/18/24 18:59 06:59 18:59 Intake Total 240 950 Balance 240 950 Weight 68.039 kg Intake: Intake, IV Titration 650 Amount Lactated Ringers 1,000 ml 650 @ 70 mls/hr IV .[id number] NORMAN Rx#:[id number] Oral 240 300 Other: Voiding Method External Catheter # Voids 1 4 # Bowel Movements 1 - Exam Patient's somnolent. Patient is laying in the bed, appears comfortable. Detailed testing deferred. - Labs CBC & Chem 7: 12/17/24 03:07 12/19/24 03:30 Labs: Abnormal Lab Results - Last 24 Hours (Table) 12/17/24 Range/Units 16:34 HDL Cholesterol 67.30 H (40.00-60.00) mg/dL Assessment and Plan Assessment: * Altered mental status, possible due to delirium. No focal symptoms reported, and examination is relatively nonfocal. Patient probably has underlying dementia, which appears to have rapidly progressed in the last few days, which could be related to superimposed delirium. No obvious cause identified. * Failure to thrive, with patient not eating or drinking for last 4 days. Exact cause uncertain. Patient complaining of abdominal pain, although CT abdomen pelvis normal, and abdomen is soft, nontender. * Abnormal CT head, with evidence of significant confluent bilateral periventricular and white matter disease, consistent with significant small vessel disease. * History of CVA, with no residual deficits * History of cardiomyopathy * Hypertension * Ex tobacco use, was a light smoker. Plan: * Patient's examination is relatively nonfocal. Her memory functions has rapidly declined in the last few days. Exact cause remains uncertain. No obvious metabolic causes identified. * Carotid Doppler revealed less than 50% stenosis of bilateral carotid bifurcation. Nonvisualization of the right ECA, which is probably clinically insignificant. Antegrade flow in both vertebral arteries. * B12 697, folate 9.30, RBC folate 436. Vitamin B1 66, A1c 5.1. TSH is normal 1.85. Fasting lipid panel with cholesterol 164, LDL 77.9, HDL 67 and triglycerides 94. All blood test normal. * CT head revealed significant confluent subcortical white matter disease. * EEG was abnormal due to background slowing, suggestive of mild encephalopathy. No focal, lateralized or epileptiform activity was seen. * Continue aspirin 81 mg daily. * We will empirically start Aricept 5 mg daily. After a month increase the dose to 10 mg. May consider adding Namenda later on. * Recommend patient follow-up with neurologist outpatient. * DVT prophylaxis: Patient on Lovenox 40 mg subcu daily. * Neurologically, otherwise clear.
--- NOTE | 2024-12-19 16:32 | P.DS ---
Providers Date of admission: 12/16/24 20:41 Attending physician: Crescencio Nielsen Consults: 12/16/24 20:38 Consult Physician Routine Consulting Provider: Dominic Mckeon Consult Reason/Comments: confusion Do you want consulting provider notified?: Yes Primary care physician: Anyi lOson [facility] Course: Hospital Course: Patient is a 84-year-old female with CAD, history of CVA/TIA, GERD, hyperlipidemia, hypertension, rheumatoid arthritis, depression from [facility] for evaluation of failure to thrive. Patient reported that she has not been eating for the last 4 days and has been shown to have some mild confusion worse than baseline. She mentions that she is having difficulty swallowing solid foods as if they "get stuck" in her chest but she can slowly swallow liquids. Most often she does not feel hungry or thirsty. She also reported intermittent generalized abdominal pain for the past few days. She denied chest pain, palpitations, shortness of breath, fever, chills, weight loss, nausea, vomiting, constipation, diarrhea, focal weakness, vision changes, speech changes, recent prolonged travel, recent trauma or fall. On admission: Vitals: Temp 98.7 F, pulse rate 79, RR 20, BP 132/65, O2 saturation 97% on room air Labs: WBC 9.5, hemoglobin 13.8, MCV 102.6, sodium 137, potassium 3.7, bicarb 22, BUN 18, creatinine 0.6, glucose 101, lactic acid 1.1, calcium 9.3, magnesium 2.1, albumin 4.1. Liver enzymes within normal limits. Coagulation panel within normal limits. Urinalysis shows trace ketones, negative protein negative glucose, negative nitrite, negative leukocyte Estrace. Cepheid 4 Plex negative. Imaging: EKG showed sinus rhythm with a rate of 80, left axis deviation, no ST-T changes, QTc [address] brain shows chronic white matter ischemic type changes with atrophy, no findings suggestive of acute ischemic process or acute intracranial process.CT abdomen pelvis shows no obvious acute process, noted mild fatty infiltration of the liver and a left renal cyst. Chest x-ray showed no acute cardiopulmonary process Patient was admitted for evaluation of acute encephalopathy likely due to poor oral intake and failure to thrive and possibly delirium. IV fluids, Remeron, speech therapy consult, PT OT consult, neurology consult and dietary consult ordered. Neurology ordered extensive workup for source of encephalopathy. Patient had macrocytosis on admission and B12 and folate were checked which were both normal. A1c was 5.1, lipid panel was normal and BUN was also in normal levels. EEG ordered by neurology showed abnormal due to background slowing, suggestive of mild encephalopathy, no focal, lateralized or epileptiform activity was seen. Carotid Doppler study showed no significant stenosis of both left and right carotid bifurcations. Barium swallow with esophagogram shows suboptimal study as patient has inability to stand, small size hiatal hernia noted, no stricture noted. Throughout hospital stay, patient also had conflicting answers regarding her appetite and oral intake as per family she would eat very little but would discuss different answers when a provider is in the room. She has also been having worsening forgetfulness per family. PT OT evaluation recommended increase services when she returns to [facility] versus subacute rehab. Upon discussion with family and patient, return to [facility] with increased services were preferred and they are cleared to discharge today. She is discharged with Remeron nightly, Pepcid daily and empiric donepezil nightly per neurology. Recommend follow-up with neurologist outpatient for further evaluation of cognitive decline, confusion and worsening forgetfulness and no obvious anatomic or metabolic causes are identified. Final Diagnosis: #. Acute encephalopathy, possible due to poor oral intake or delirium, CVA ruled out #. Failure to thrive #. History of dementia #. History of CVA/TIA #. Hypokalemia, resolved #. Macrocytosis, likely due to malnutrition Physical examination: Vital signs reviewed General: non toxic, no distress, appears at stated age, room air, thin and frail appearing Derm: no unusual rashes/lesions, warm Head: atraumatic, normocephalic, symmetric Eyes: EOMI, anicteric sclera, pupils equal round reactive to light ENT: Nose and ears atraumatic Neck: No cervical lymphadenopathy, trachea midline, supple Mouth: no lip lesion, mucus membranes moist Cardiovascular: S1S2 reg, no murmur Lungs: CTA bilateral, no rhonchi, no rales, no accessory muscle use Abdominal: soft, nondistended, nontender to palpation, no guarding Ext: muscle strength 5 out of 5 in all 4 extremities grossly, no gross muscle atrophy, no contractures, positive dorsalis pedis pulse bilateral, no edema Neuro: CN II-XI grossly intact, no gross focal neuro deficits Psych: Alert, oriented to place and self only, appropriate affect and mood Attestation: I have seen and examined this patient with my resident, assessment and plan discussed with the resident, agree with assessment and plan as written above. Dr. Montoya Patient Condition at Discharge: Stable Plan - Discharge Summary Discharge Rx Participant: No New Discharge Prescriptions: New Mirtazapine [Remeron] 15 mg PO HS #30 tab Famotidine [Pepcid] 20 mg PO DAILY #30 tablet Donepezil [Aricept] 5 mg PO HS #30 tab Continue Furosemide [Lasix] 40 mg PO MOWESA@0800 Aspirin EC [Ecotrin Low Dose] 81 mg PO DAILY@0800 Nitroglycerin Sl Tabs [Nitrostat] 0.4 mg SL Q5M PRN PRN Reason: Chest Pain Cholecalciferol (Vitamin D3) [Vitamin D3 (50 Mcg = 2000 Iu)] 50 mcg PO DAILY@0800 Acetaminophen [Tylenol Arthritis] 650 mg PO Q6H PRN PRN Reason: Pain Vitamin B Complex 1 cap PO DAILY@0800 Vit C/E/Zn/Coppr/Lutein/Zeaxan [Preservision Areds 2 Softgel] 1 cap PO DAILY@0800 Sacubitril/Valsartan [Entresto 24 mg-26 mg Tablet] 0.5 tab PO BID@799,1999 Discharge Medication List Aspirin EC [Ecotrin Low Dose] 81 mg PO DAILY@0800 05/03/19 [History] Furosemide [Lasix] 40 mg PO MOWESA@0800 05/03/19 [History] Acetaminophen [Tylenol Arthritis] 650 mg PO Q6H PRN 12/16/24 [History] Cholecalciferol (Vitamin D3) [Vitamin D3 (50 Mcg = 2000 Iu)] 50 mcg PO DAILY@0800 12/16/24 [History] Nitroglycerin Sl Tabs [Nitrostat] 0.4 mg SL Q5M PRN 12/16/24 [History] Sacubitril/Valsartan [Entresto 24 mg-26 mg Tablet] 0.5 tab PO BID@0800,199912/16/24 [History] Vit C/E/Zn/Coppr/Lutein/Zeaxan [Preservision Areds 2 Softgel] 1 cap PO DAILY@0800 12/16/25 [History] Vitamin B Complex 1 cap PO DAILY@79912/16/24 [History] Donepezil [Aricept] 5 mg PO HS #30 tab 12/19/24 [Rx] Famotidine [Pepcid] 20 mg PO DAILY #30 tablet 12/19/24 [Rx] Mirtazapine [Remeron] 15 mg PO HS #30 tab 12/19/24 [Rx] Follow up Appointment(s)/Referral(s): Anyi Olson [Primary Care Provider] - 1-2 days Aram Flores DO [STAFF PHYSICIAN] - 1 Week Patient Instructions/Handouts: Failure to Thrive in Older Adults (DC) Activity/Diet/Wound Care/Special Instructions: Return to [facility] #[phone] Discharge Disposition: TRANSFER TO SNF/ECF
[2024-12-19 16:54] VITALS: BP 102/62; PULSE 95; TEMP 97.6
== END 2024-12-19 16:35 | disposition home or self-care (01) | DRG 71 ==
LOC: EC 16:56 → 4SSUR 20:40 → OBSVTOIN 20:41 → 4SSUR 21:26
PROVIDERS: ADMIT Hospitalist; ATTEND Hospitalist
DX: G93.40 Encephalopathy, unspecified (principal); E46 Unspecified protein-calorie malnutrition; R62.7 Adult failure to thrive; R13.10 Dysphagia, unspecified; F03.93 Unspecified dementia, unspecified severity, with mood disturbance; M06.9 Rheumatoid arthritis, unspecified; F32.A Depression, unspecified; I10 Essential (primary) hypertension; K76.0 Fatty (change of) liver, not elsewhere classified; I25.10 Atherosclerotic heart disease of native coronary artery without angina pectoris; I25.2 Old myocardial infarction; I25.5 Ischemic cardiomyopathy; K21.9 Gastro-esophageal reflux disease without esophagitis; N28.1 Cyst of kidney, acquired; D75.89 Other specified diseases of blood and blood-forming organs; E78.5 Hyperlipidemia, unspecified; E86.0 Dehydration; E87.6 Hypokalemia; Z87.891 Personal history of nicotine dependence; Z79.82 Long term (current) use of aspirin; Z86.73 Personal history of transient ischemic attack (TIA), and cerebral infarction without residual deficits; Z71.3 Dietary counseling and surveillance
CPT/HCPCS: 36415; 70450; 71046; 74177; 74220; 80048; 80053; 80061; 81003; 82140; 82607; 82746; 82747; 83036; 83605; 83735; 84132; 84425; 84443; 85025; 85610; 85730; 87636; 93005; 93880; 95816; 96360; 99285

== ENCOUNTER 2025-01-02 10:01 | Emergency (ER) | payer MEDICARE ==
[2025-01-02 10:12] LABS: Glucose,Whole Blood 71 mg/dL (70-110)
[2025-01-02 10:20] VITALS: TEMP 97.5
--- NOTE | 2025-01-02 10:35 | ED ---
General Adult HPI - General Chief complaint: Weakness Stated complaint: Failure to thrive Time Seen by Provider: 01/02/25 10:13 Source: patient Mode of arrival: EMS Limitations: no limitations - History of Present Illness Initial comments: Dictation was produced using [employer] dictation software. please excuse any grammatical, word or spelling errors. Chief Complaint: 84-year-old female brought to the emergency department EMS for failure to thrive History of Present Illness: Patient is an 84-year-old female presents emergency department for failure to thrive. Patient is a poor historian apparently was brought in from assisted living facility by EMS. Is unclear who called EMS. Patient has no complaints. States that she is upset at being here in the ER today. History of present illness limited due to patient being uncooperative. Unable to obtain ROS because patient is uncooperative - Related Data Home Medications Medication Instructions Recorded Confirmed Aspirin EC [Ecotrin Low Dose] 81 mg PO DAILY@79905/03/19 12/16/24 Furosemide [Lasix] 40 mg PO MOWESA@79905/03/19 12/16/24 Acetaminophen [Tylenol Arthritis] 650 mg PO Q6H PRN 12/16/24 12/16/24 Cholecalciferol (Vitamin D3) 50 mcg PO DAILY@79912/16/24 12/16/24 [Vitamin D3 (50 Mcg = 2000 Iu)] Nitroglycerin Sl Tabs [Nitrostat] 0.4 mg SL Q5M PRN 12/16/24 12/16/24 Sacubitril/Valsartan [Entresto 24 0.5 tab PO BID@799,199912/16/24 12/16/24 mg-26 mg Tablet] Vit C/E/Zn/Coppr/Lutein/Zeaxan 1 cap PO DAILY@79912/16/24 12/16/24 [Preservision Areds 2 Softgel] Vitamin B Complex 1 cap PO DAILY@79912/16/24 12/16/24 Previous Rx's Medication Instructions Recorded Donepezil [Aricept] 5 mg PO HS #30 tab 12/19/24 Famotidine [Pepcid] 20 mg PO DAILY #30 tablet 12/19/24 Mirtazapine [Remeron] 15 mg PO HS #30 tab 12/19/24 Allergies Allergy/AdvReac Type Severity Reaction Status Date / Time No Known Allergies Allergy Verified 01/02/25 10:19 Review of Systems ROS Statement: Those systems with pertinent positive or pertinent negative responses have been documented in the HPI. ROS Other: All systems not noted in ROS Statement are negative. Past Medical History Past Medical History: Coronary Artery Disease (CAD), CVA/TIA, GERD/Reflux, Hyperlipidemia, Hypertension, Myocardial Infarction ([place]), Rheumatoid Arthritis (RA) Additional Past Medical History / Comment(s): CVA 2011 Last Myocardial Infarction Date:: 01/2015 History of Any Multi-Drug Resistant Organisms: None Reported Past Surgical History: Heart Catheterization With Stent, Tubal Ligation Past Anesthesia/Blood Transfusion Reactions: No Reported Reaction Date of Last Stent Placement:: 01/2015 Past Psychological History: Depression Smoking Status: Former smoker Past Alcohol Use History: Rare Past Drug Use History: None Reported - Past Family History Father Family Medical History: Myocardial Infarction ([place]) Additional Family Medical History / Comment(s): passed at 60 years old. Mother Family Medical History: Congestive Heart Failure (CHF) Additional Family Medical History / Comment(s): at 99 years old. Brother(s) Family Medical History: Hyperlipidemia, Hypertension, Myocardial Infarction ([place]) Additional Family Medical History / Comment(s): still living. General Exam - General Exam Comments Initial Comments: PHYSICAL EXAM: General Impression: Alert and oriented x3, not in acute distress HEENT: Normocephalic atraumatic, extra-ocular movements intact, pupils equal and reactive to light bilaterally, mucous membranes moist. Cardiovascular: Heart regular rate and rhythm Chest: Able to complete full sentences, no retractions, no tachypnea Abdomen: abdomen soft, non-tender, non-distended, no organomegaly Musculoskeletal: Pulses present and equal in all extremities, no peripheral edema Motor: no focal deficits noted Neurological: CN II-XII grossly intact, no focal motor or sensory deficits noted Skin: Intact with no visualized rashes Psych: Normal affect and mood Limitations: no limitations Course Vital Signs 01/02/25 01/02/25 01/02/25 10:12 10:32 11:27 Temperature 97.5 F L Pulse Rate 72 70 70 Respiratory 18 16 20 Rate Blood Pressure 131/75 133/72 122/71 O2 Sat by Pulse 99 98 98 Oximetry - Reevaluation(s) Reevaluation #1: 01/02/25 11:30 More history was obtained from daughter at the bedside states that she had a similar episode. Patient currently has beginnings and worsenings of dementia. Daughter provides paperwork that she is the power of deputy county attorney. She would like patient to be hospice. Patient also no code. EKG Findings - EKG Comments: EKG Findings:: My EKG interpretation: Ventricular rate 76, sinus rhythm, TN 155, QRS 113, QTc 426. No TN prolongation, no QTC prolongation, no ST or T-wave changes noted. Overall, this EKG is unremarkable Medical Decision Making - Medical Decision Making Was pt. sent in by a medical professional or institution (, PA, PLANNING MANAGER, urgent care, hospital, or intermediate...) When possible be specific @ -No Did you speak to anyone other than the patient for history (EMS, parent, family, police, friend...)? What history was obtained from this source @ -See above. Did you review nursing and triage notes (agree or disagree)? Why? @ -I reviewed and agree with nursing and triage notes Were old charts reviewed (outside hosp., previous admission, EMS record, old EKG, old radiological studies, urgent care reports/EKG's, intermediate records)? Report findings @ -No old charts were reviewed Differential Diagnosis (chest pain, altered mental status, abdominal pain women, abdominal pain men, vaginal bleeding, musculoskeletal, weakness, fever, dyspnea, syncope, headache, dizziness, GI bleed, back pain, seizure, CVA, palpatations, mental health)? @ -Differential Weakness: Hypoglycemia, shock, sepsis, hyponatremia, anemia, infection, [place], ETOH, adverse medicine reaction, overdose, stroke, this is not meant to be an all-inclusive list. EKG interpreted by me (3pts min.). @ -None done X-rays interpreted by me (1pt min.). @ -None done CT interpreted by me (1pt min.). @ -None done U/S interpreted by me (1pt. min.). @ -None done What testing was considered but not performed or refused? (CT, X-rays, U/S, labs)? Why? @ -None What meds were considered but not given or refused? Why? @ -None Was smoking cessation discussed for >3mins.? @ -No Were there social determinants of health that impacted care today? How? (Homelessness, low income, unemployed, alcoholism, drug addiction, transportation, low edu. Level, literacy, decrease access to med. care, custodial, rehab)? @ -No Was there de-escalation of care discussed even if they declined (Discuss DNR or withdrawal of care, Hospice)? DNR status @ -No What co-morbidities impacted this encounter? (DM, HTN, Smoking, COPD, CAD, Cancer, CVA, ARF, Chemo, Hep., AIDS, mental health diagnosis, sleep apnea, morbid obesity)? @ -None Was patient admitted / discharged? Hospital course, mention meds given and route, prescriptions, significant lab abnormalities, going to OR and other pertinent info. @ -84-year-old female presents with failure to thrive. According daughter patient was not taking her meds or eating at assisted living facility. Vital signs stable. Daughter reports that patient appears to be at baseline currently. She has no code. Patient daughter spoke with case management associate and will have hospice follow-up outpatient. Patient will be discharged. Did you discuss the management of the patient with other professionals (professionals i.e. , PA, PLANNING MANAGER, lab, RT, psych nurse, social service technician, manager treasury, teacher, education officer, case management associate)? Give summary @ -Case discussed with case management associate who will provide hospice follow-up. Was critical care preformed (if so, how long)? @ -No Undiagnosed new problem with uncertain prognosis? @ -No Drug Therapy requiring intensive monitoring for toxicity (Heparin, Nitro, Insulin, Cardizem)? @ -No Were any procedures done? @ -No Diagnosis/symptom? Acute, or Chronic, or Acute on Chronic? Uncomplicated (without systemic symptoms) or Complicated (systemic symptoms)? @ -Failure to thrive Side effects of treatment? @ -No Exacerbation, Progression, or Severe Exacerbation? @ -No Poses a threat to life or bodily function? How? (Chest pain, [place], [place], pneumonia, PE, COPD, DKA, ARF, appy, cholecystitis, CVA, Diverticulitis, Homicidal, Suicidal, threat to staff... and all critical care pts) @ -yes - Lab Data Result diagrams: 01/02/25 10:34 01/02/25 10:34 Lab Results 01/02/25 01/02/2501/02/25 Range/Units 10:10 10:34 10:34 WBC 4.80 (4.50-10.00) 10*3/uL RBC 4.08 L (4.10-5.20) 10*6/uL Hgb 14.1 (12.0-15.0) g/dL Hct 42.6 (37.2-46.3) % MCV 104.4 H (80.0-97.0) fL MCH 34.6 H (27.0-32.0) pg MCHC 33.1 (32.0-37.0) g/dL Plt Count 223 (140-440) 10*3/uL MPV 9.9 (9.5-12.2) fL Immature Gran % (Auto) 0.2 % Neutrophils % 56.9 % Lymphocytes % 27.5 % Monocytes % 11.7 % Eosinophils % 2.7 % Basophils % 1.0 % Immature Gran # 0.01 (0.00-0.04) 10*3/uL Neutrophils # 2.73 (1.80-7.70) 10*3/uL Lymphocytes # 1.32 (0.90-5.00) 10*3/uL Monocytes # 0.56 (0.20-1.00) 10*3/uL Eosinophils # 0.13 (0.04-0.35) 10*3/uL Basophils # 0.05 (0.00-0.10) 10*3/uL Sodium 140 (137-145) mmol/L Potassium 4.7 (3.5-5.1) mmol/L Chloride 109 H (98-107) mmol/L Carbon Dioxide 25 (22-30) mmol/L Anion Gap 6 mmol/L BUN 23 H (7-17) mg/dL Creatinine 0.63 (0.52-1.04) mg/dL Est GFR (CKD-EPI)AfAm >90 (>60 ml/min/1.73 sqM) Est GFR (CKD-EPI)NonAf 83 (>60 ml/min/1.73 sqM) Glucose 92 (74-99) mg/dL POC Glucose (mg/dL) 71 (70-110) mg/dL POC Glu [employer] ID Dom [email or web address] Calcium 9.7 (8.4-10.2) mg/dL Disposition Clinical Impression: Failure to thrive Disposition: HOME SELF-CARE Condition: Fair Instructions (If sedation given, give patient instructions): Failure to Thrive in Older Adults (ED) Is patient prescribed a controlled substance at d/c from ED?: No Referrals: Waleska Pruett MD [Primary Care Provider] - 1-2 days [facility] [NON-STAFF] - As Soon As Possible Time of Disposition: 11:45
[2025-01-02 10:45] LABS: Basophils # (A) 0.05 10*3/uL (0.00-0.10); Eosinophils # (A) 0.13 10*3/uL (0.04-0.35); Eosinophils % (A) 2.7 %; HCT 42.6 % (37.2-46.3); HGB 14.1 g/dL (12.0-15.0); Lymphocytes # (A) 1.32 10*3/uL (0.90-5.00); Lymphocytes % (A) 27.5 %; MCH 34.6 pg (27.0-32.0); MCHC 33.1 g/dL (32.0-37.0); MCV 104.4 fL (80.0-97.0); Mean Platelet Volume 9.9 fL (9.5-12.2); Monocytes # (A) 0.56 10*3/uL (0.20-1.00); Monocytes % (A) 11.7 %; Neutrophils # (A) 2.73 10*3/uL (1.80-7.70); Neutrophils % (A) 56.9 %; Platelet Count 223 10*3/uL (140-440); RBC 4.08 10*6/uL (4.10-5.20); RDW 14.7 % (11.5-14.5)
[2025-01-02 10:55] LABS: African American GFR (CKD) >90 (>60 ml/min/1.73 sqM); Anion Gap 6 mmol/L; Blood Urea Nitrogen 23 mg/dL (7-17); Calcium 9.7 mg/dL (8.4-10.2); Carbon Dioxide 25 mmol/L (22-30); Chloride 109 mmol/L (98-107); Glucose 92 mg/dL (74-99); Non-African American GFR(CKD) 83 (>60 ml/min/1.73 sqM); Sodium 140 mmol/L (137-145)
[2025-01-02 11:05] LABS: Potassium 4.7 mmol/L (3.5-5.1)
[2025-01-02 13:50] VITALS: BP 125/65; PULSE 76; RESP 18
== END 2025-01-02 13:50 | disposition home or self-care (01) ==
LOC: EC 10:01
DX: R53.1 Weakness (principal); R62.7 Adult failure to thrive; Z87.891 Personal history of nicotine dependence; Z68.45 Body mass index [BMI] 70 or greater, adult
CPT/HCPCS: 36415; 80048; 85025; 93005; 99285